=== PATIENT | female | born 1935 | race Caucasian/White ===

== ENCOUNTER → 2017-10-04 11:20 | Outpatient (CLI) | payer MEDICARE, OTHER, SELFPAY ==
--- NOTE | 2017-10-04 | DI.MG.S_ITS ---
BILATERAL DIGITAL SCREENING MAMMOGRAM 3D/2D WITH CAD: 10/04/2017 CLINICAL: Routine screening. Family history of breast cancer. Comparison is made to exams dated: 08/11/2016 mammogram, 07/08/2015 mammogram, and 07/01/2014 mammogram - [facility]. The tissue of both breasts is heterogeneously dense. This may lower the sensitivity of mammography. Current study was also evaluated with a Computer Aided Detection (CAD) system. No significant masses, calcifications, or other findings are seen in either breast. There has been no significant interval change. IMPRESSION: NEGATIVE There is no mammographic evidence of malignancy. A 1 year screening mammogram is recommended. This exam was interpreted at Station ID: [id number]. NOTE: For mammograms, a report in lay terms will be sent to the patient. Approximately 15% of breast malignancies will not be visualized mammographically. In the management of a palpable breast mass, a negative mammogram must not discourage biopsy of a clinically suspicious lesion. Electronically Signed By: Neetu alonso/kristal:10/04/2017 12:57:15 letter sent: Normal Exam ACR BI-RADS Category 1: Negative [id number]
== END ==
PROVIDERS: Family Provider Internal Medicine; PCP Internal Medicine; Visit Provider Internal Medicine
DX: Z12.31 Encounter for screening mammogram for malignant neoplasm of breast (principal); Z80.3 Family history of malignant neoplasm of breast
CPT/HCPCS: 77063; 77067

== ENCOUNTER → 2017-11-01 09:31 | Outpatient (CLI) | payer MEDICARE, OTHER, SELFPAY | PROVIDERS: Family Provider Internal Medicine; PCP Internal Medicine; Visit Provider Internal Medicine | DX: M85.88 Other specified disorders of bone density and structure, other site (principal); Z78.0 Asymptomatic menopausal state; Z82.62 Family history of osteoporosis; Z87.891 Personal history of nicotine dependence | CPT/HCPCS: 77080 ==

== ENCOUNTER → 2018-03-19 15:25 | Outpatient (CLI) | payer MEDICARE, OTHER, SELFPAY ==
--- NOTE | 2018-03-19 | DI.MRI.S_ITS ---
PROCEDURE: MR STROKE Pre- and post-contrast brain MRI, non-contrast brain MR angiogram, pre- and postcontrast neck MR angiogram INDICATIONS: Dizziness TECHNIQUE: Brain: Noncontrast axial T1 spin echo, axial T2 fast spin echo, sagittal and axial FLAIR, coronal T2 fast spin echo, axial gradient echo, axial diffusion and ADC through the brain. After the administration of contrast, axial 3D VIBE of the cranial vasculature and brain. Brain MRA: Non-contrast 3-D time of flight MR angiogram, with multiple bnrxrzf-jlpxikchy-krzhwcbuog (MIP) reformats performed. Neck MRA: Axial and sagittal TruFISP through the neck. Coronal dynamic MR angiogram during administration of contrast in the arterial and venous phases, with 3-dimenstional tcydmhn-fzakzqxgz-ffdgwwscfk (MIP) reformats constructed from subtraction images. COMPARISON: [facility], MR, STROKE PROTOCOL A, 03/28/2010, 9:43. [facility], CT, HEAD WITHOUT CONTRAST, 03/27/2010, 14:35. FINDINGS: Image quality: Excellent. BRAIN: CSF spaces: Ventricles are normal in size and shape. Basal cisterns are patent. No extra-axial fluid collections. Brain: No intracranial bleeds or mass effects. There is moderate cerebral volume loss. Moderate periventricular white matter chronic small vessel ischemic changes are present. Diffusion weighted images show no acute ischemic insults. Brainstem appears normal. Normal intravascular flow voids are present. No abnormal intracranial enhancement. Skull and face: Calvarial marrow signal is normal. Orbits appear normal. Sinuses: Sinuses and mastoids are clear. BRAIN MR ANGIOGRAM: Anterior circulation: Intracranial internal carotid arteries are normal in size and enhancement. The flow within the paired anterior cerebral arteries is normal and symmetric. The flow within the middle cerebral arteries is normal and symmetric. The anterior communicating artery is seen. No stenoses, occlusions, or aneurysms. Posterior circulation: The visualized portions of the vertebral arteries demonstrate normal caliber, and join to form a normal appearing basilar artery. The flow within the posterior cerebral arteries is normal and symmetric. No stenoses, occlusions, or aneurysms. NECK MR ANGIOGRAM: Carotids: Great vessels demonstrate a conventional anatomy as they arise from the aortic arch. The origins of the common carotid arteries appear patent. The calibers and courses of both common carotid arteries are normal. The bifurcation regions appear normal bilaterally. The internal carotid arteries demonstrate normal course and caliber. Posterior circulation: The origins of the vertebral arteries appear patent. More superior portions of both vertebral arteries demonstrate normal course and caliber, and join to form a normal appearing basilar artery. Miscellaneous: Subclavian arteries appear patent. Pre-contrast images through the neck show no soft tissue abnormalities. IMPRESSION: BRAIN MRI: 1. No acute intracranial abnormalities. 2. Moderate cerebral volume loss and chronic microvascular ischemic changes. BRAIN MR ANGIOGRAM: 1. No high-grade stenosis or occlusion in anterior circulations. 2. No high-grade stenosis or occlusion in posterior circulations. NECK MR ANGIOGRAM: 1. Normal carotid arteries bilaterally. 2. Normal vertebral arteries bilaterally. Dictated by: Geo Jensen M.D. on 03/20/2018 at 11:18 Approved by: Geo Jensen M.D. on 03/20/2018 at 11:29
[2018-03-19 15:54] LABS: BUN Creatinine Ratio 25.7 (6-22); Blood Urea Nitrogen 18 mg/dL (7-17); Estimated Glomerular Filt Rate > 60.0 mL/min (>60)
== END ==
PROVIDERS: PCP Internal Medicine; Visit Provider Internal Medicine
DX: I67.89 Other cerebrovascular disease (principal); R42 Dizziness and giddiness
CPT/HCPCS: 36415; 70553; 82565; 84520; A9579

== ENCOUNTER 2018-03-23 09:00 | Outpatient (RCR) | payer MEDICARE, OTHER, SELFPAY ==
--- NOTE | 2018-02-13 17:56 | PT.OIE ---
Current Diagnoses Muscle weakness (generalized) (02/13/18) Unsteadiness on feet (02/13/18) Other abnormalities of gait and mobility (02/13/18) Past Medical History (Last Updated 02/13/18 @ 17:48 by Neetu Nelson, PT) Depression (Acute) Osteopenia (Acute) Provider Visit Care Team Role Provider Type Giovani James MD Family Provider Physician Primary Care Provider Specialty: Internal Medicine Address: [address] [place] [address], [id number] Email: Jessica Lewis PA-C Attending Provider Advanced Feed Elevator Worker Specialty: Internal Medicine Address: [address] [place] [address], [id number] Email: Physical Therapy Initial Evaluation PT-OP-A Visit Information Start: 02/13/18 10:39 Freq: Status: Active Protocol: Document 02/13/18 10:40 LRN (Rec: 02/13/18 11:28 LRN [id number]) Out-Patient Physical Therapy Visit Information Visit Information Visit Type Initial Evaluation Visit Start Time 10:40 Visit Stop Time 11:28 Total Visit Minutes 48 Visit Number 1 Number of ASSESSMENT TECHNICIAN Visits 0 Evaluation Information Evaluation Date 02/13/18 PT-OP-B Current Condition Start: 02/13/18 10:39 Freq: Status: Active Protocol: Document 02/13/18 10:40 LRN (Rec: 02/13/18 11:28 LRN [id number]) Current Condition History of Current Condition Onset Date 2 yrs ago Current Complaints If turns fast or stands too quickly gets lightheaded. History of Current Condition Gradual onset of unsteadiness. Becomes unsteady when standing up or turning around quickly. Fell flat on face x 2 in 2016. Once after going up a step outside at home and took 2 steps and fell forward. Another time was standing up to fast and fell forward. Thinks she was light headed. She feels good walking straight forward in a familiar place and is steady. She states she is awful in crowds or if she has to deviate from her walking pathway, then gets light headed and fearful of falling. She has to hang onto her when walking in crowds. She walks her small dog outside 2x/day and feels that make her more stable when the dog is pulling forward. She walks 15-60 minutes (mile in afternoon with slight hill on level). She denies any health issues. States her blood pressure is good. See section of Personal Factors below. Future Testing and Treatments Planned None. Treatment Goals Patient/Caregiver Goals Unsteadiness at home when getting up from couch and turning to go to kitchen, feels unsteady and would like to move around without loss of balance and would like to learn to walk more steadily. Prior Functional Status Baseline Function- ADL's Independent Baseline Function- Mobility Independent Current Functional Impairments (Reported) Functional Limitations- ADL's Standing up quickly. Turning to go in an opposite direction. Having to suddenly avoid something while walking. Functional Limitations- Mobility/Gait Fearful of walking in open and unfamiliar spaces. Personal Factors Other Personal Factors That May Effect History of: Depression, Therapy/Recovery Dizziness with 2 falls 2 yrs ago, Osteopenia, R TKA - 8 yrs ago, facial surgery - broken cheekbone, nose; colon resection, L shoulder repair ( [facility]), appy, ovarian cyst and gall bladder removal, frozen R shoulder. PT-OP-C Subjective Start: 02/13/18 10:39 Freq: Status: Active Protocol: Document 02/13/18 10:40 LRN (Rec: 02/13/18 11:28 LRN [id number]) OP-PT Subjective Patient Comments Patient Comments No pain. Patient Questionnaires ABC- Activity Specific Balance Confidence Scale ABC Score 55.625 ABC Functional Impairment 40 to <60% Impaired (Score 41- 60) Foot & Ankle Ability Measure- ADL and Sports FAAM-ADL Score 66 FAAM-ADL Impairment 20 to 39% Impaired (Score 50- 66) Lower Extremity Functional Scale LEFS Score 53 LEFS Impairment 20 to 39% Impaired (Score 48- 62) PT-OP-D Balance Start: 02/13/18 10:39 Freq: Status: Active Protocol: Document 02/13/18 10:40 LRN (Rec: 02/13/18 11:28 LRN [id number]) OP-PT Balance Assessment Sitting Balance Static Sitting Balance Ability Normal Dynamic Sitting Balance Ability Normal Balance Tests Vigil Balance Test Vigil Balance Test Score 47 Vigil Impairment Rating 1 to 19% Impaired (Score 45-55 ) Functional Reach Functional Reach Test 12 Functional Reach Impairment Rating 0% Impaired (Score 10) Single Limb Standing Single Limb- Right 5 Single Limb- Left 2 Tandem Tandem Standing R foot behind: 30 sec's, L foot behind: 2 sec's Ramírez Fall Scale Copyright Permission Desiree JM, Desiree RM, Melodie SJ. Development of a scale to identify the fall- prone patient. Can J Aging 1989;8;366-7. Amanda Ramírez (2009). Preventing patient falls. (2nd ed). [place]: [employer]. PT-OP-E Functional Tests Start: 02/13/18 10:39 Freq: Status: Active Protocol: Document 02/13/18 10:40 LRN (Rec: 02/13/18 16:54 LRN [id number]) Functional Tests Dynamic Gait Index (DGI) Score 18 DGI Impairment Rating 20 to <40% Impaired (Score 15- 19) Timed Up and Go (TUG) Score 10 TUG Impairment Rating 0% Impaired (Score 10) PT-OP-G Mobility & Gait Start: 02/13/18 10:39 Freq: Status: Active Protocol: Document 02/13/18 10:40 LRN (Rec: 02/13/18 16:54 LRN [id number]) OP Gait Assessment Comments Gait Comments Pt ambulates with shortened step length on the left. PT-OP-Q Treatments Start: 02/13/18 10:39 Freq: Status: Active Protocol: Document 02/13/18 10:40 LRN (Rec: 02/13/18 16:54 LRN [id number]) Neuro Re-Education Treatment Balance Activities Tandem Stance Details EO: L & R Surface Level Reps/Duration 2 x Comments Pt able to stand with R foot behind, has poor balance with L foot behind. SLS Details EO: L & R Surface Level Reps/Duration 2-3 x Comments SLS R better than L Stepping around objects Details Objects 5' and 2.5' apart Surface Level Equipment 1/2 balls Reps/Duration 2 passes Comments Pt needed verbal cuing to keep from side stepping around the 1/2 balls. Stepping over hurdles Details Stepping over green ace Surface Level Equipment hurdles Reps/Duration 2 passes PT-OP-T Assessment and Plan Start: 02/13/18 10:39 Freq: Status: Active Protocol: Document 02/13/18 10:40 LRN (Rec: 02/13/18 11:28 LRN [id number]) Physical Therapy Assessment Rehab Potential Rehabilitation Potential Good Evaluation Complexity Number of Personal Factors/Comorbidities 3 or More Number of Body Systems Impaired 3 Clinical Presentation at Evaluation Stable Impairments Impairments Balance Gait Strength Other Impairments Possible vestibular component Other Concerns Age Related Concerns > 65 years old Fall history Hx of R TKA Barriers to Rehabilitation 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 Goals Four Impairment Increased dizziness with quick turning and sit to stand transfer. Short Term Goal (STG) The pt will be able to slow down her turning and sit to stand transfer movement to decrease her risk of falling. STG Duration 03/12/09 Residential Goal (LTG) Pt will have be able to report less episodes on dizziness onset and improved confidence with activities per improved ABC score of 40 or less. LTG Duration 04/10/18 Three Impairment DGI score of less than 19 indicating related to falls in older adults Residential Goal (LTG) Pt will improve DGI score to > 19 for decreased fall risk. LTG Duration 04/10/18 Two Impairment Decreased Single Leg Stance Balance Tire Service Technician Goal (LTG) Pt will feel more steady with gait on level and stairs with increased SLS ability. LTG Duration 03/26/18 One Impairment Pt lacks self care HEP Tire Service Technician Goal (LTG) Pt will be independent and safe on a self care HEP for balance and core/LE strengthening ex's. LTG Duration 04/10/18 Assessment Summary Assessment Pt presents with decreased dynamic balance with head movements during gait turning quickly and sometimes with sit to stand when done quickly. The pt will be check for orthostatic hypotension at the next visit. The patient may have a vestibular component since she tends to lose her balance with head turns vertical and horizontal. Her LE strength is good but she shows decreased core stability during muscle testing. When she had episodes of increased sway she showed poor use of hip/knee/ankle strategy for maintaining balance. The pt will benefit from skilled physical therapy for core and ankle strengthening, balance training with hip/knee/ankle strategies and training to decrease speed of transfers and turns. Physical Therapy Plan Frequency and Duration Frequency of Treatment 2x/Week Plan of Care Start Date 02/13/18 Plan of Care End Date 04/10/18 Therapeutic Interventions Therapeutic Interventions Aquatic Therapy Balance Training Gait Training Home Exercise Program Neuromuscular Re-education Patient/Caregiver Education Self-Care/Home Management Therapeutic Exercises Next Visit Focus/Plan Next Note Type Treatment Note Next Visit Plan Start core and ankle strengthening, balance training on unlevel and with EC, HEP of core and ankle strengthening. Progress towards unlevel surface balance training. Stair ambulation and step ups for exercise.
--- NOTE | 2018-02-13 17:56 | PT.OPPOC ---
Current Diagnoses Muscle weakness (generalized) (02/13/18) Unsteadiness on feet (02/13/18) Other abnormalities of gait and mobility (02/13/18) Provider Visit Care Team Role Provider Type Giovani James MD Family Provider Physician Primary Care Provider Specialty: Internal Medicine Address: [address] [place] [address], [id number] Email: Jessica Lewis PA-C Attending Provider Advanced Certified Retinal Angiographer Specialty: Internal Medicine Address: [address] [place] [address], [id number] Email: Plan Of Care PT-OP-T Assessment and Plan Start: 02/13/18 10:39 Freq: Status: Active Protocol: Document 02/13/18 10:40 LRN (Rec: 02/13/18 11:28 LRN [id number]) Physical Therapy Assessment Rehab Potential Rehabilitation Potential Good Evaluation Complexity Number of Personal Factors/Comorbidities 3 or More Number of Body Systems Impaired 3 Clinical Presentation at Evaluation Stable Impairments Impairments Balance Gait Strength Other Impairments Possible vestibular component Other Concerns Age Related Concerns > 65 years old Fall history Hx of R TKA Barriers to Rehabilitation 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 Goals Four Impairment Increased dizziness with quick turning and sit to stand transfer. Short Term Goal (STG) The pt will be able to slow down her turning and sit to stand transfer movement to decrease her risk of falling. STG Duration 03/12/09 Tax Director Goal (LTG) Pt will have be able to report less episodes on dizziness onset and improved confidence with activities per improved ABC score of 40 or less. LTG Duration 04/10/18 Three Impairment DGI score of less than 19 indicating related to falls in older adults Usp Goal (LTG) Pt will improve DGI score to > 19 for decreased fall risk. LTG Duration 04/10/18 Two Impairment Decreased Single Leg Stance Balance Usp Goal (LTG) Pt will feel more steady with gait on level and stairs with increased SLS ability. LTG Duration 03/26/18 One Impairment Pt lacks self care HEP Usp Goal (LTG) Pt will be independent and safe on a self care HEP for balance and core/LE strengthening ex's. LTG Duration 04/10/18 Assessment Summary Assessment Pt presents with decreased dynamic balance with head movements during gait turning quickly and sometimes with sit to stand when done quickly. The pt will be check for orthostatic hypotension at the next visit. The patient may have a vestibular component since she tends to lose her balance with head turns vertical and horizontal. Her LE strength is good but she shows decreased core stability during muscle testing. When she had episodes of increased sway she showed poor use of hip/knee/ankle strategy for maintaining balance. The pt will benefit from skilled physical therapy for core and ankle strengthening, balance training with hip/knee/ankle strategies and training to decrease speed of transfers and turns. Physical Therapy Plan Frequency and Duration Frequency of Treatment 2x/Week Plan of Care Start Date 02/13/18 Plan of Care End Date 04/10/18 Therapeutic Interventions Therapeutic Interventions Aquatic Therapy Balance Training Gait Training Home Exercise Program Neuromuscular Re-education Patient/Caregiver Education Self-Care/Home Management Therapeutic Exercises Next Visit Focus/Plan Next Note Type Treatment Note Next Visit Plan Start core and ankle strengthening, balance training on unlevel and with EC, HEP of core and ankle strengthening. Progress towards unlevel surface balance training. Stair ambulation and step ups for exercise. Plan of Care Dates Plan of Care Start Date 02/13/18 Plan of Care End Date 04/10/18 Please Sign and Return: I have reviewed this Plan of Care and certify that the skilled therapy services above are required to meet the patient?s needs. Physician Signature Date Printed Name and Credentials Clinical Instructor Signature Printed Name and Credentials
--- NOTE | 2018-03-01 18:12 | PT.OTN ---
Current Diagnoses Unsteadiness on feet (03/01/18) Other abnormalities of gait and mobility (03/01/18) Physical Therapy Treatment Note PT-OP-A Visit Information Start: 02/13/18 10:39 Freq: Status: Active Protocol: Document 03/01/18 15:15 HH (Rec: 03/01/18 18:09 HH [id number]) Out-Patient Physical Therapy Visit Information Visit Information Visit Type Treatment Note Visit Start Time 15:15 Visit Stop Time 16:00 Total Visit Minutes 45 Visit Number 2 Number of BATCH FREEZER OPERATOR Visits 0 PT-OP-B Current Condition Start: 02/13/18 10:39 Freq: Status: Active Protocol: Document 02/13/18 10:40 LRN (Rec: 02/13/18 11:28 LRN [id number]) Current Condition History of Current Condition Onset Date 2 yrs ago Current Complaints If turns fast or stands too quickly gets lightheaded. History of Current Condition Gradual onset of unsteadiness. Becomes unsteady when standing up or turning around quickly. Fell flat on face x 2 in 2016. Once after going up a step outside at home and took 2 steps and fell forward. Another time was standing up to fast and fell forward. Thinks she was light headed. She feels good walking straight forward in a familiar place and is steady. She states she is awful in crowds or if she has to deviate from her walking pathway, then gets light headed and fearful of falling. She has to hang onto her when walking in crowds. She walks her small dog outside 2x/day and feels that make her more stable when the dog is pulling forward. She walks 15-60 minutes (mile in afternoon with slight hill on level). She denies any health issues. States her blood pressure is good. See section of Personal Factors below. Future Testing and Treatments Planned None. Treatment Goals Patient/Caregiver Goals Unsteadiness at home when getting up from couch and turning to go to kitchen, feels unsteady and would like to move around without loss of balance and would like to learn to walk more steadily. Prior Functional Status Baseline Function- ADL's Independent Baseline Function- Mobility Independent Current Functional Impairments (Reported) Functional Limitations- ADL's Standing up quickly. Turning to go in an opposite direction. Having to suddenly avoid something while walking. Functional Limitations- Mobility/Gait Fearful of walking in open and unfamiliar spaces. Personal Factors Other Personal Factors That May Effect History of: Depression, Therapy/Recovery Dizziness with 2 falls 2 yrs ago, Osteopenia, R TKA - 8 yrs ago, facial surgery - broken cheekbone, nose; colon resection, L shoulder repair ( [facility]), appy, ovarian cyst and gall bladder removal, frozen R shoulder. PT-OP-C Subjective Start: 02/13/18 10:39 Freq: Status: Active Protocol: Document 03/01/18 15:15 HH (Rec: 03/01/18 18:09 HH [id number]) OP-PT Subjective Patient Comments Patient Comments Pt reports I almost fell today while turning to face my from my counter at home. I feel loss of balance everytime if i turn my head too much. I have to slow my turns down at this point to prevent that sensation. PT-OP-D Balance Start: 02/13/18 10:39 Freq: Status: Active Protocol: Document 02/13/18 10:40 LRN (Rec: 02/13/18 11:28 LRN [id number]) OP-PT Balance Assessment Sitting Balance Static Sitting Balance Ability Normal Dynamic Sitting Balance Ability Normal Balance Tests Vigil Balance Test Vigil Balance Test Score 47 Vigil Impairment Rating 1 to 19% Impaired (Score 45-55 ) Functional Reach Functional Reach Test 12 Functional Reach Impairment Rating 0% Impaired (Score 10) Single Limb Standing Single Limb- Right 5 Single Limb- Left 2 Tandem Tandem Standing R foot behind: 30 sec's, L foot behind: 2 sec's Ramírez Fall Scale Copyright Permission Desiree MILLAN, Desiree RM, Melodie SJ. Development of a scale to identify the fall- prone patient. Can J Aging 1989;8;366-7. Amanda Ramírez (2009). Preventing patient falls. (2nd ed). [place]: [place]. PT-OP-E Functional Tests Start: 02/13/18 10:39 Freq: Status: Active Protocol: Document 02/13/18 10:40 LRN (Rec: 02/13/18 16:54 LRN [id number]) Functional Tests Dynamic Gait Index (DGI) Score 18 DGI Impairment Rating 20 to <40% Impaired (Score 15- 19) Timed Up and Go (TUG) Score 10 TUG Impairment Rating 0% Impaired (Score 10) PT-OP-G Mobility & Gait Start: 02/13/18 10:39 Freq: Status: Active Protocol: Document 02/13/18 10:40 LRN (Rec: 02/13/18 16:54 LRN [id number]) OP Gait Assessment Comments Gait Comments Pt ambulates with shortened step length on the left. PT-OP-Q Treatments Start: 02/13/18 10:39 Freq: Status: Active Protocol: Document 03/01/18 15:15 HH (Rec: 03/01/18 18:09 [id number]) Gym Equipment Shuttle Balance balance board yellow Reps/Duration 30 secs x 5 Comments without UE support with CGA Therapeutic Exercises Standing Exercises anterior and posterior sway in standing Reps/Minutes 10 x 3 Comments sway as far as she can without LOB SLS Side bilateral Reps/Minutes 3 secs hold x 5 Neuro Re-Education Treatment Balance Activities static stance EO EC Reps/Duration 10 secs x 3 PT-OP-T Assessment and Plan Start: 02/13/18 10:39 Freq: Status: Active Protocol: Document 03/01/18 15:15 (Rec: 03/01/18 18:09 [email or web address]) Physical Therapy Assessment Assessment Summary Assessment Pt reports she almost fall today after a quick turn with the sensation of im losing balance when i turn. Pt presents possible vertibular impairments primarily during horizontal head turns. Pt was able to balance during static stance with EO, EC, but unable to maintain balance during head turns with or without eyes closed. Head turns with eyes fixation on a target in seated or standing position also cause loss of balance. Recommended pt to consult vestibular assessment and treatment from vestibular specialist due to possible BPPV or central vestibular disorder. BPPV assessment for next visit. Pt also does not seem to have OHTN. sitting and standing BP ranged from 155- 160/ 85-90. New HEP also given to pt including trunk sway with ankle strategy and SLS. Physical Therapy Plan Next Visit Focus/Plan Next Note Type Treatment Note Next Visit Plan perform bppv assessment cont to practice ankle and hip strategy single leg balance eo/EC balance training
--- NOTE | 2018-03-06 13:08 | PT.OTN ---
Current Diagnoses Unsteadiness on feet (03/06/18) Other abnormalities of gait and mobility (03/06/18) Physical Therapy Treatment Note PT-OP-A Visit Information Start: 02/13/18 10:39 Freq: Status: Active Protocol: Document 03/06/18 12:00 HH (Rec: 03/06/18 13:07 HH [email or web address]) Out-Patient Physical Therapy Visit Information Visit Information Visit Type Treatment Note Visit Start Time 12:00 Visit Stop Time 12:45 Total Visit Minutes 45 Visit Number 3 Number of MANAGEMENT AND BUDGET ANALYST Visits 0 PT-OP-B Current Condition Start: 02/13/18 10:39 Freq: Status: Active Protocol: Document 02/13/18 10:40 LRN (Rec: 02/13/18 11:28 LRN [id number]) Current Condition History of Current Condition Onset Date 2 yrs ago Current Complaints If turns fast or stands too quickly gets lightheaded. History of Current Condition Gradual onset of unsteadiness. Becomes unsteady when standing up or turning around quickly. Fell flat on face x 2 in 2016. Once after going up a step outside at home and took 2 steps and fell forward. Another time was standing up to fast and fell forward. Thinks she was light headed. She feels good walking straight forward in a familiar place and is steady. She states she is awful in crowds or if she has to deviate from her walking pathway, then gets light headed and fearful of falling. She has to hang onto her when walking in crowds. She walks her small dog outside 2x/day and feels that make her more stable when the dog is pulling forward. She walks 15-60 minutes (mile in afternoon with slight hill on level). She denies any health issues. States her blood pressure is good. See section of Personal Factors below. Future Testing and Treatments Planned None. Treatment Goals Patient/Caregiver Goals Unsteadiness at home when getting up from couch and turning to go to kitchen, feels unsteady and would like to move around without loss of balance and would like to learn to walk more steadily. Prior Functional Status Baseline Function- ADL's Independent Baseline Function- Mobility Independent Current Functional Impairments (Reported) Functional Limitations- ADL's Standing up quickly. Turning to go in an opposite direction. Having to suddenly avoid something while walking. Functional Limitations- Mobility/Gait Fearful of walking in open and unfamiliar spaces. Personal Factors Other Personal Factors That May Effect History of: Depression, Therapy/Recovery Dizziness with 2 falls 2 yrs ago, Osteopenia, R TKA - 8 yrs ago, facial surgery - broken cheekbone, nose; colon resection, L shoulder repair ( [place]), appy, ovarian cyst and gall bladder removal, frozen R shoulder. PT-OP-C Subjective Start: 02/13/18 10:39 Freq: Status: Active Protocol: Document 03/06/18 12:00 HH (Rec: 03/06/18 13:07 HH [email or web address]) OP-PT Subjective Patient Comments Patient Comments Pt is compliant to HEP especially single leg balance at the counter. Pt reports she still feel dizzy from getting OOB and sit to stand movements but denies dizziness from rolling in bed. PT-OP-D Balance Start: 02/13/18 10:39 Freq: Status: Active Protocol: Document 02/13/18 10:40 LRN (Rec: 02/13/18 11:28 LRN [id number]) OP-PT Balance Assessment Sitting Balance Static Sitting Balance Ability Normal Dynamic Sitting Balance Ability Normal Balance Tests Vigil Balance Test Vigil Balance Test Score 47 Vigil Impairment Rating 1 to 19% Impaired (Score 45-55 ) Functional Reach Functional Reach Test 12 Functional Reach Impairment Rating 0% Impaired (Score 10) Single Limb Standing Single Limb- Right 5 Single Limb- Left 2 Tandem Tandem Standing R foot behind: 30 sec's, L foot behind: 2 sec's Ramírez Fall Scale Copyright Permission Desiree MILLAN, Desiree RM, Melodie SJ. Development of a scale to identify the fall- prone patient. Can J Aging 1989;8;366-7. Amanda Ramírez (2009). Preventing patient falls. (2nd ed). [place]: [place]. PT-OP-E Functional Tests Start: 02/13/18 10:39 Freq: Status: Active Protocol: Document 02/13/18 10:40 LRN (Rec: 02/13/18 16:54 LRN [id number]) Functional Tests Dynamic Gait Index (DGI) Score 18 DGI Impairment Rating 20 to <40% Impaired (Score 15- 19) Timed Up and Go (TUG) Score 10 TUG Impairment Rating 0% Impaired (Score 10) PT-OP-G Mobility & Gait Start: 02/13/18 10:39 Freq: Status: Active Protocol: Document 02/13/18 10:40 LRN (Rec: 02/13/18 16:54 LRN [id number]) OP Gait Assessment Comments Gait Comments Pt ambulates with shortened step length on the left. PT-OP-Q Treatments Start: 02/13/18 10:39 Freq: Status: Active Protocol: Document 03/06/18 12:00 HH (Rec: 03/06/18 13:07 HH [email or web address]) Therapeutic Exercises Sitting Exercises Recumbent bike Resistance 0 for 1st minute then level 5 for 3 mins Reps/Minutes 6 minutes total Standing Exercises sit to stand Standing Exercise Name sit to stand Resistance BW with UE support Reps/Minutes 5 reps x 4 anterior and posterior sway in standing Reps/Minutes 10 x 3 Comments sway as far as she can without LOB SLS Side bilateral Reps/Minutes 5 secs hold x 5 PT-OP-T Assessment and Plan Start: 02/13/18 10:39 Freq: Status: Active Protocol: Document 03/06/18 12:00 HH (Rec: 03/06/18 13:07 HH [email or web address]) Physical Therapy Assessment Impairments Impairments Balance Gait Strength Assessment Summary Assessment Assessment for possible OHTN and BPPV today. [place] -ve for L and R. However, pt presents symptoms of OHTN. Supine to sit : bp 151/100 HR 73 in supine ; BP 129/89 HR 76 in sitting. Sit to stand : BP 145/93 HR 78 in sitting, BP 127/86 HR79 in standing. Pt reports of dizziness for no more than 10 seconds after every transitional movement. Pt was instructed to start tx session with LE recumbent bike followed by sit to stand with UE support. Pt did not c/o dizziness afterwards during sit to stand. However, she did c/o slight but decreased dizziness with horizontal head turns. Pt also reports her dizziness symptoms started couple months ago when she noticed her baseline bp also went up from 120s/80s to 140s/ 90s. Educated pt to follow up with her pcp to address her possible OHTN and cont PT for overall LE strengthening and increase in cardiac fitness. Recommend pt to participate fitness class at [employer] in [facility] as well. Physical Therapy Plan Next Visit Focus/Plan Next Note Type Treatment Note Next Visit Plan warm up with leg press/ recumbent bike/ recumbent press sit to stand with UE support, balance board, SLB, slow head turn exercise with gaze stabilization
--- NOTE | 2018-03-09 12:57 | PT.OTN ---
Current Diagnoses Unsteadiness on feet (03/09/18) Other abnormalities of gait and mobility (03/09/18) Physical Therapy Treatment Note PT-OP-A Visit Information Start: 02/13/18 10:39 Freq: Status: Active Protocol: Document 03/09/18 10:43 LRN (Rec: 03/09/18 11:18 LRN [id number]) Out-Patient Physical Therapy Visit Information Visit Information Visit Type Treatment Note Visit Note Pt was 13' late for appt. Visit Start Time 10:43 Visit Stop Time 11:18 Total Visit Minutes 35 Visit Number 4/12 Number of ELECTRONIC SPECIALIST Visits 0 Evaluation Information Evaluation Date 02/13/18 PT-OP-B Current Condition Start: 02/13/18 10:39 Freq: Status: Active Protocol: Document 02/13/18 10:40 LRN (Rec: 02/13/18 11:28 LRN [id number]) Current Condition History of Current Condition Onset Date 2 yrs ago Current Complaints If turns fast or stands too quickly gets lightheaded. History of Current Condition Gradual onset of unsteadiness. Becomes unsteady when standing up or turning around quickly. Fell flat on face x 2 in 2016. Once after going up a step outside at home and took 2 steps and fell forward. Another time was standing up to fast and fell forward. Thinks she was light headed. She feels good walking straight forward in a familiar place and is steady. She states she is awful in crowds or if she has to deviate from her walking pathway, then gets light headed and fearful of falling. She has to hang onto her when walking in crowds. She walks her small dog outside 2x/day and feels that make her more stable when the dog is pulling forward. She walks 15-60 minutes (mile in afternoon with slight hill on level). She denies any health issues. States her blood pressure is good. See section of Personal Factors below. Future Testing and Treatments Planned None. Treatment Goals Patient/Caregiver Goals Unsteadiness at home when getting up from couch and turning to go to kitchen, feels unsteady and would like to move around without loss of balance and would like to learn to walk more steadily. Prior Functional Status Baseline Function- ADL's Independent Baseline Function- Mobility Independent Current Functional Impairments (Reported) Functional Limitations- ADL's Standing up quickly. Turning to go in an opposite direction. Having to suddenly avoid something while walking. Functional Limitations- Mobility/Gait Fearful of walking in open and unfamiliar spaces. Personal Factors Other Personal Factors That May Effect History of: Depression, Therapy/Recovery Dizziness with 2 falls 2 yrs ago, Osteopenia, R TKA - 8 yrs ago, facial surgery - broken cheekbone, nose; colon resection, L shoulder repair ( [place]), appy, ovarian cyst and gall bladder removal, frozen R shoulder. PT-OP-C Subjective Start: 02/13/18 10:39 Freq: Status: Active Protocol: Document 03/09/18 10:43 LRN (Rec: 03/09/18 11:18 LRN [id number]) OP-PT Subjective Patient Comments Patient Comments Appt to Dr. Rashaad MD for blood pressure is 03/13/18. Walked 2 miles yesterday. PT-OP-D Balance Start: 02/13/18 10:39 Freq: Status: Active Protocol: Document 02/13/18 10:40 LRN (Rec: 02/13/18 11:28 LRN [id number]) OP-PT Balance Assessment Sitting Balance Static Sitting Balance Ability Normal Dynamic Sitting Balance Ability Normal Balance Tests Vigil Balance Test Vigil Balance Test Score 47 Vigil Impairment Rating 1 to 19% Impaired (Score 45-55 ) Functional Reach Functional Reach Test 12 Functional Reach Impairment Rating 0% Impaired (Score 10) Single Limb Standing Single Limb- Right 5 Single Limb- Left 2 Tandem Tandem Standing R foot behind: 30 sec's, L foot behind: 2 sec's Ramírez Fall Scale Copyright Permission Desiree JM, Desiree RM, Melodie SJ. Development of a scale to identify the fall- prone patient. Can J Aging 1989;8;366-7. Amanda Ramírez (2009). Preventing patient falls. (2nd ed). [place]: [place]. PT-OP-E Functional Tests Start: 02/13/18 10:39 Freq: Status: Active Protocol: Document 02/13/18 10:40 LRN (Rec: 02/13/18 16:54 LRN [id number]) Functional Tests Dynamic Gait Index (DGI) Score 18 DGI Impairment Rating 20 to <40% Impaired (Score 15- 19) Timed Up and Go (TUG) Score 10 TUG Impairment Rating 0% Impaired (Score 10) PT-OP-G Mobility & Gait Start: 02/13/18 10:39 Freq: Status: Active Protocol: Document 02/13/18 10:40 LRN (Rec: 02/13/18 16:54 LRN [id number]) OP Gait Assessment Comments Gait Comments Pt ambulates with shortened step length on the left. PT-OP-Q Treatments Start: 02/13/18 10:39 Freq: Status: Active Protocol: Document 03/09/18 10:43 LRN (Rec: 03/09/18 11:18 LRN [id number]) Cardio Equipment Recumbent Elliptical (Biodex) Duration (Minutes) 8 Resistance 3 Seat Position 8 Recumbent Bicycle Duration (Minutes) 2 Resistance 5 Seat Position 5 Therapeutic Exercises Standing Exercises Ankle DF/PF Standing Exercise Name DF/PF foot forward and ER'd. Equipment Used parallel bars Comments Ex with balance training, hands over railing, SBA anterior and posterior sway in standing Resistance Manual Reps/Minutes 10 x 3 Comments sway as far as she can without LOB SLS Standing Exercise Name SLS EO, EC Side bilateral Equipment Used Parallel bars Comments SBA PT-OP-T Assessment and Plan Start: 02/13/18 10:39 Freq: Status: Active Protocol: Document 03/09/18 10:43 LRN (Rec: 03/09/18 12:56 LRN [id number]) Physical Therapy Assessment Goals Four Impairment Increased dizziness with quick turning and sit to stand transfer. Short Term Goal (STG) The pt will be able to slow down her turning and sit to stand transfer movement to decrease her risk of falling. STG Duration 03/12/09 Beam Dyer Recessed Vat Goal (LTG) Pt will have be able to report less episodes on dizziness onset and improved confidence with activities per improved ABC score of 40 or less. LTG Duration 04/10/18 Three Impairment DGI score of less than 19 indicating related to falls in older adults Beam Dyer Recessed Vat Goal (LTG) Pt will improve DGI score to > 19 for decreased fall risk. LTG Duration 04/10/18 Two Impairment Decreased Single Leg Stance Balance Beam Dyer Recessed Vat Goal (LTG) Pt will feel more steady with gait on level and stairs with increased SLS ability. LTG Duration 03/26/18 One Impairment Pt lacks self care HEP Residential Goal (LTG) Pt will be independent and safe on a self care HEP for balance and core/LE strengthening ex's. LTG Duration 04/10/18 Assessment Summary Assessment Pt scheduled to Dr. Neil for blood pressure in ~ 1 week. Cont PT for balance training, overall LE strengthening and increase in cardiac fitness. Physical Therapy Plan Frequency and Duration Frequency of Treatment 2x/Week Plan of Care Start Date 02/13/18 Plan of Care End Date 04/10/18 Next Visit Focus/Plan Next Note Type Treatment Note Next Visit Plan Warm up with recumbent stepper and add leg press, balance board, SLB, slow head turn exercise with gaze stabilization. Assess sit to stand with UE support.
--- NOTE | 2018-03-14 16:47 | PT.OPPN ---
Current Diagnoses Unsteadiness on feet (03/14/18) Other abnormalities of gait and mobility (03/14/18) Physical Therapy Progress Note PT-OP-A Visit Information Start: 02/13/18 10:39 Freq: Status: Active Protocol: Document 03/14/18 14:30 HH (Rec: 03/14/18 16:47 HH [email or web address]) Out-Patient Physical Therapy Visit Information Visit Information Visit Type Progress Note Visit Start Time 14:30 Visit Stop Time 15:15 Total Visit Minutes 45 Visit Number 07/08 Number of CEMENT [employer] MAINTENANCE Visits 0 PT-OP-B Current Condition Start: 02/13/18 10:39 Freq: Status: Active Protocol: Document 02/13/18 10:40 LRN (Rec: 02/13/18 11:28 LRN [id number]) Current Condition History of Current Condition Onset Date 2 yrs ago Current Complaints If turns fast or stands too quickly gets lightheaded. History of Current Condition Gradual onset of unsteadiness. Becomes unsteady when standing up or turning around quickly. Fell flat on face x 2 in 2016. Once after going up a step outside at home and took 2 steps and fell forward. Another time was standing up to fast and fell forward. Thinks she was light headed. She feels good walking straight forward in a familiar place and is steady. She states she is awful in crowds or if she has to deviate from her walking pathway, then gets light headed and fearful of falling. She has to hang onto her when walking in crowds. She walks her small dog outside 2x/day and feels that make her more stable when the dog is pulling forward. She walks 15-60 minutes (mile in afternoon with slight hill on level). She denies any health issues. States her blood pressure is good. See section of Personal Factors below. Future Testing and Treatments Planned None. Treatment Goals Patient/Caregiver Goals Unsteadiness at home when getting up from couch and turning to go to kitchen, feels unsteady and would like to move around without loss of balance and would like to learn to walk more steadily. Prior Functional Status Baseline Function- ADL's Independent Baseline Function- Mobility Independent Current Functional Impairments (Reported) Functional Limitations- ADL's Standing up quickly. Turning to go in an opposite direction. Having to suddenly avoid something while walking. Functional Limitations- Mobility/Gait Fearful of walking in open and unfamiliar spaces. Personal Factors Other Personal Factors That May Effect History of: Depression, Therapy/Recovery Dizziness with 2 falls 2 yrs ago, Osteopenia, R TKA - 8 yrs ago, facial surgery - broken cheekbone, nose; colon resection, L shoulder repair ( [place]), appy, ovarian cyst and gall bladder removal, frozen R shoulder. PT-OP-C Subjective Start: 02/13/18 10:39 Freq: Status: Active Protocol: Document 03/14/18 14:30 HH (Rec: 03/14/18 16:47 HH [email or web address]) OP-PT Subjective Patient Comments Patient Comments Appt to Dr. Rashaad MD for BP 330pm this afternoon. Pt reports she started going to [employer] for strength and balance class. She states she is very cautious about her turning and positional changes . PT-OP-D Balance Start: 02/13/18 10:39 Freq: Status: Active Protocol: Document 02/13/18 10:40 LRN (Rec: 02/13/18 11:28 LRN [id number]) OP-PT Balance Assessment Sitting Balance Static Sitting Balance Ability Normal Dynamic Sitting Balance Ability Normal Balance Tests Ivgil Balance Test Vigil Balance Test Score 47 Vigil Impairment Rating 1 to 19% Impaired (Score 45-55 ) Functional Reach Functional Reach Test 12 Functional Reach Impairment Rating 0% Impaired (Score 10) Single Limb Standing Single Limb- Right 5 Single Limb- Left 2 Tandem Tandem Standing R foot behind: 30 sec's, L foot behind: 2 sec's Ramírez Fall Scale Copyright Permission Desiree MILLAN, Desiree RM, Melodie SJ. Development of a scale to identify the fall- prone patient. Can J Aging 1989;8;366-7. Amanda Ramírez (2009). Preventing patient falls. (2nd ed). [place]: [place]. PT-OP-E Functional Tests Start: 02/13/18 10:39 Freq: Status: Active Protocol: Document 02/13/18 10:40 LRN (Rec: 02/13/18 16:54 LRN [id number]) Functional Tests Dynamic Gait Index (DGI) Score 18 DGI Impairment Rating 20 to <40% Impaired (Score 15- 19) Timed Up and Go (TUG) Score 10 TUG Impairment Rating 0% Impaired (Score 10) PT-OP-G Mobility & Gait Start: 02/13/18 10:39 Freq: Status: Active Protocol: Document 02/13/18 10:40 LRN (Rec: 02/13/18 16:54 LRN [id number]) OP Gait Assessment Comments Gait Comments Pt ambulates with shortened step length on the left. PT-OP-T Assessment and Plan Start: 02/13/18 10:39 Freq: Status: Active Protocol: Document 03/14/18 14:30 HH (Rec: 03/14/18 16:47 HH [email or web address]) Physical Therapy Assessment Goals 5 Impairment BP control [employer] Developer Goal (LTG) Pt will be able to maintain her BP level +/- 10 with positional changes LTG Duration 8 weeks Four Short Term Goal (STG) The pt will be able to slow down her turning and sit to stand transfer movement to decrease her risk of falling. STG Duration 03/12/09 Longterm Goal (LTG) Pt will have be able to report less episodes on dizziness onset and improved confidence with activities per improved ABC score of 40 or less. LTG Duration 04/10/[address] Sql Developer Goal (LTG) Pt will improve DGI score to > 19 for decreased fall risk. LTG Duration 04/10/18 Two Impairment Decreased Single Leg Stance Balance Longterm Goal (LTG) Pt will feel more steady with gait on level and stairs with increased SLS ability. LTG Duration 03/26/18 Progress Towards Goals Progress Towards Goals Slow Progress due to Medical Issues Slow Progress - Other Progress Comments Pt presents improved SLS to 8 seconds bilaterally and she is more aware of her overall speed for positional changes and turns Assessment Summary Assessment Pt cont to show possible OHTN upon assessment today. Pt's BP dropped from 181/115 to 149/ 96 from supine to stand. However, pt's bp was able to maintain 150s from supine to stand after 30 mins of therex (primarily focus on LE strengthening.) Pt will follow up with Dr. Neil today for her possible OHTN. Physical Therapy Plan Next Visit Focus/Plan Next Visit Plan Warm up with recumbent stepper and add leg press, balance board, SLB, slow head turn exercise with gaze stabilization. Assess sit to stand with UE support.
--- NOTE | 2018-03-14 16:50 | PT.OTN ---
Current Diagnoses Unsteadiness on feet (03/21/18) Other abnormalities of gait and mobility (03/21/18) Physical Therapy Treatment Note PT-OP-A Visit Information Start: 02/13/18 10:39 Freq: Status: Active Protocol: Document 03/14/18 14:30 HH (Rec: 03/14/18 16:47 HH [email or web address]) Out-Patient Physical Therapy Visit Information Visit Information Visit Type Progress Note Visit Start Time 14:30 Visit Stop Time 15:15 Total Visit Minutes 45 Visit Number 07/08 Number of SHEET TAKER Visits 0 PT-OP-B Current Condition Start: 02/13/18 10:39 Freq: Status: Active Protocol: Document 02/13/18 10:40 LRN (Rec: 02/13/18 11:28 LRN [id number]) Current Condition History of Current Condition Onset Date 2 yrs ago Current Complaints If turns fast or stands too quickly gets lightheaded. History of Current Condition Gradual onset of unsteadiness. Becomes unsteady when standing up or turning around quickly. Fell flat on face x 2 in 2016. Once after going up a step outside at home and took 2 steps and fell forward. Another time was standing up to fast and fell forward. Thinks she was light headed. She feels good walking straight forward in a familiar place and is steady. She states she is awful in crowds or if she has to deviate from her walking pathway, then gets light headed and fearful of falling. She has to hang onto her when walking in crowds. She walks her small dog outside 2x/day and feels that make her more stable when the dog is pulling forward. She walks 15-60 minutes (mile in afternoon with slight hill on level). She denies any health issues. States her blood pressure is good. See section of Personal Factors below. Future Testing and Treatments Planned None. Treatment Goals Patient/Caregiver Goals Unsteadiness at home when getting up from couch and turning to go to kitchen, feels unsteady and would like to move around without loss of balance and would like to learn to walk more steadily. Prior Functional Status Baseline Function- ADL's Independent Baseline Function- Mobility Independent Current Functional Impairments (Reported) Functional Limitations- ADL's Standing up quickly. Turning to go in an opposite direction. Having to suddenly avoid something while walking. Functional Limitations- Mobility/Gait Fearful of walking in open and unfamiliar spaces. Personal Factors Other Personal Factors That May Effect History of: Depression, Therapy/Recovery Dizziness with 2 falls 2 yrs ago, Osteopenia, R TKA - 8 yrs ago, facial surgery - broken cheekbone, nose; colon resection, L shoulder repair ( [place]), appy, ovarian cyst and gall bladder removal, frozen R shoulder. PT-OP-C Subjective Start: 02/13/18 10:39 Freq: Status: Active Protocol: Document 03/14/18 14:30 HH (Rec: 03/14/18 16:47 HH [email or web address]) OP-PT Subjective Patient Comments Patient Comments Appt to Dr. Rashaad MD for BP 330pm this afternoon. Pt reports she started going to [facility] for strength and balance class. She states she is very cautious about her turning and positional changes . PT-OP-D Balance Start: 02/13/18 10:39 Freq: Status: Active Protocol: Document 02/13/18 10:40 LRN (Rec: 02/13/18 11:28 LRN [id number]) OP-PT Balance Assessment Sitting Balance Static Sitting Balance Ability Normal Dynamic Sitting Balance Ability Normal Balance Tests Vigil Balance Test Vigil Balance Test Score 47 Vigil Impairment Rating 1 to 19% Impaired (Score 45-55 ) Functional Reach Functional Reach Test 12 Functional Reach Impairment Rating 0% Impaired (Score 10) Single Limb Standing Single Limb- Right 5 Single Limb- Left 2 Tandem Tandem Standing R foot behind: 30 sec's, L foot behind: 2 sec's Ramírez Fall Scale Copyright Permission Desiree MILLAN, Desiree RM, Melodie SJ. Development of a scale to identify the fall- prone patient. Can J Aging 1989;8;366-7. Amanda Ramírez (2009). Preventing patient falls. (2nd ed). [place]: [place]. PT-OP-E Functional Tests Start: 02/13/18 10:39 Freq: Status: Active Protocol: Document 02/13/18 10:40 LRN (Rec: 02/13/18 16:54 LRN [id number]) Functional Tests Dynamic Gait Index (DGI) Score 18 DGI Impairment Rating 20 to <40% Impaired (Score 15- 19) Timed Up and Go (TUG) Score 10 TUG Impairment Rating 0% Impaired (Score 10) PT-OP-G Mobility & Gait Start: 02/13/18 10:39 Freq: Status: Active Protocol: Document 02/13/18 10:40 LRN (Rec: 02/13/18 16:54 LRN [id number]) OP Gait Assessment Comments Gait Comments Pt ambulates with shortened step length on the left. PT-OP-Q Treatments Start: 02/13/18 10:39 Freq: Status: Active Protocol: Document 03/14/18 14:30 HH (Rec: 03/14/18 16:47 HH [email or web address]) Cardio Equipment Recumbent Stepper (Sci-Fit) Duration (Minutes) 10 Resistance 3 Other RPE 5/10 Therapeutic Exercises Standing Exercises sit to stand Standing Exercise Name sit to stand Resistance BW with UE support Reps/Minutes 5 reps x 4 SLS Standing Exercise Name SLS EO, EC Side bilateral Equipment Used with mirror in front Comments SBA Other Exercises leg press Equipment Used 75 lbs 3 stripes Reps/Minutes 10 x 3 PT-OP-T Assessment and Plan Start: 02/13/18 10:39 Freq: Status: Active Protocol: Document 03/14/18 14:30 HH (Rec: 03/14/18 16:47 HH [email or web address]) Physical Therapy Assessment Goals 5 Impairment BP control Glass Grinder Goal (LTG) Pt will be able to maintain her BP level +/- 10 with positional changes LTG Duration 8 weeks Four Short Term Goal (STG) The pt will be able to slow down her turning and sit to stand transfer movement to decrease her risk of falling. STG Duration 03/12/09 [facility] Goal (LTG) Pt will have be able to report less episodes on dizziness onset and improved confidence with activities per improved ABC score of 40 or less. LTG Duration 04/10/18 Three [facility] Goal (LTG) Pt will improve DGI score to > 19 for decreased fall risk. LTG Duration 04/10/18 Two Impairment Decreased Single Leg Stance Balance [facility] Goal (LTG) Pt will feel more steady with gait on level and stairs with increased SLS ability. LTG Duration 03/26/18 Progress Towards Goals Progress Towards Goals Slow Progress due to Medical Issues Slow Progress - Other Progress Comments Pt presents improved SLS to 8 seconds bilaterally and she is more aware of her overall speed for positional changes and turns Assessment Summary Assessment Pt cont to show possible OHTN upon assessment today. Pt's BP dropped from 181/115 to 149/ 96 from supine to stand. However, pt's bp was able to maintain 150s from supine to stand after 30 mins of therex (primarily focus on LE strengthening.) Pt will follow up with Dr. Neil today for her possible OHTN. Physical Therapy Plan Next Visit Focus/Plan Next Visit Plan Warm up with recumbent stepper and add leg press, balance board, SLB, slow head turn exercise with gaze stabilization. Assess sit to stand with UE support.
--- NOTE | 2018-03-21 14:34 | PT.OTN ---
Current Diagnoses Unsteadiness on feet (03/21/18) Other abnormalities of gait and mobility (03/21/18) Physical Therapy Treatment Note PT-OP-A Visit Information Start: 02/13/18 10:39 Freq: Status: Active Protocol: Document 03/21/18 13:45 HH (Rec: 03/21/18 14:34 HH [email or web address]) Out-Patient Physical Therapy Visit Information Visit Information Visit Type Treatment Note Visit Start Time 13:45 Visit Stop Time 14:20 Total Visit Minutes 35 Visit Number 08/08 Number of TRANSMISSION SYSTEM OPERATOR Visits 0 PT-OP-B Current Condition Start: 02/13/18 10:39 Freq: Status: Active Protocol: Document 02/13/18 10:40 LRN (Rec: 02/13/18 11:28 LRN [id number]) Current Condition History of Current Condition Onset Date 2 yrs ago Current Complaints If turns fast or stands too quickly gets lightheaded. History of Current Condition Gradual onset of unsteadiness. Becomes unsteady when standing up or turning around quickly. Fell flat on face x 2 in 2016. Once after going up a step outside at home and took 2 steps and fell forward. Another time was standing up to fast and fell forward. Thinks she was light headed. She feels good walking straight forward in a familiar place and is steady. She states she is awful in crowds or if she has to deviate from her walking pathway, then gets light headed and fearful of falling. She has to hang onto her when walking in crowds. She walks her small dog outside 2x/day and feels that make her more stable when the dog is pulling forward. She walks 15-60 minutes (mile in afternoon with slight hill on level). She denies any health issues. States her blood pressure is good. See section of Personal Factors below. Future Testing and Treatments Planned None. Treatment Goals Patient/Caregiver Goals Unsteadiness at home when getting up from couch and turning to go to kitchen, feels unsteady and would like to move around without loss of balance and would like to learn to walk more steadily. Prior Functional Status Baseline Function- ADL's Independent Baseline Function- Mobility Independent Current Functional Impairments (Reported) Functional Limitations- ADL's Standing up quickly. Turning to go in an opposite direction. Having to suddenly avoid something while walking. Functional Limitations- Mobility/Gait Fearful of walking in open and unfamiliar spaces. Personal Factors Other Personal Factors That May Effect History of: Depression, Therapy/Recovery Dizziness with 2 falls 2 yrs ago, Osteopenia, R TKA - 8 yrs ago, facial surgery - broken cheekbone, nose; colon resection, L shoulder repair ( [place]), appy, ovarian cyst and gall bladder removal, frozen R shoulder. PT-OP-C Subjective Start: 02/13/18 10:39 Freq: Status: Active Protocol: Document 03/21/18 13:45 HH (Rec: 03/21/18 14:34 HH [email or web address]) OP-PT Subjective Patient Comments Patient Comments Pt reports her symptoms is around the same and feel more tired today. Pt requested to leave earlier today due to her fitness class at [facility] after this session at 230 pm. pt states My doctor did notice that theres fluctuations in BP at the office but he told me not to worry too much. And He had me to have a MRI screen to rule out cartoid artery blockage. Result will come back on monday. Patient Reported Progress Same PT-OP-D Balance Start: 02/13/18 10:39 Freq: Status: Active Protocol: Document 02/13/18 10:40 LRN (Rec: 02/13/18 11:28 LRN [id number]) OP-PT Balance Assessment Sitting Balance Static Sitting Balance Ability Normal Dynamic Sitting Balance Ability Normal Balance Tests Vigli Balance Test Vigil Balance Test Score 47 Vigil Impairment Rating 1 to 19% Impaired (Score 45-55 ) Functional Reach Functional Reach Test 12 Functional Reach Impairment Rating 0% Impaired (Score 10) Single Limb Standing Single Limb- Right 5 Single Limb- Left 2 Tandem Tandem Standing R foot behind: 30 sec's, L foot behind: 2 sec's Ramírez Fall Scale Copyright Permission Desiree MILLAN, Desiree RM, Melodie SJ. Development of a scale to identify the fall- prone patient. Can J Aging 1989;8;366-7. Amanda Ramírez (2009). Preventing patient falls. (2nd ed). [place]: [place]. PT-OP-E Functional Tests Start: 02/13/18 10:39 Freq: Status: Active Protocol: Document 02/13/18 10:40 LRN (Rec: 02/13/18 16:54 LRN [id number]) Functional Tests Dynamic Gait Index (DGI) Score 18 DGI Impairment Rating 20 to <40% Impaired (Score 15- 19) Timed Up and Go (TUG) Score 10 TUG Impairment Rating 0% Impaired (Score 10) PT-OP-G Mobility & Gait Start: 02/13/18 10:39 Freq: Status: Active Protocol: Document 02/13/18 10:40 LRN (Rec: 02/13/18 16:54 LRN [id number]) OP Gait Assessment Comments Gait Comments Pt ambulates with shortened step length on the left. PT-OP-Q Treatments Start: 02/13/18 10:39 Freq: Status: Active Protocol: Document 03/21/18 13:45 HH (Rec: 03/21/18 14:34 HH [email or web address]) Cardio Equipment Recumbent Stepper (Sci-Fit) Duration (Minutes) 10 Resistance 3 Recumbent Bicycle Duration (Minutes) 8 Resistance 5 Seat Position 5 Therapeutic Exercises Standing Exercises calf raise Equipment Used on stair Reps/Minutes 12 x 2 sit to stand Standing Exercise Name sit to stand Resistance BW with UE support Reps/Minutes 8 reps x 3 Comments tempo 5 seconds down , 2 seoncds up PT-OP-T Assessment and Plan Start: 02/13/18 10:39 Freq: Status: Active Protocol: Document 03/21/18 13:45 HH (Rec: 03/21/18 14:34 HH [email or web address]) Physical Therapy Assessment Assessment Summary Assessment Pt reports increased fatigue today since she woke up. Pt's BP has been maintained at 130- 140s/90s-100s before and after therex. Pt denies dizziness during session and she also presents increased awareness of her overall speed of movements. Physical Therapy Plan Next Visit Focus/Plan Next Note Type Treatment Note Next Visit Plan check pt's MRI status Reassess BP Warm up with recumbent stepper and add leg press, balance board, SLB, slow head turn exercise with gaze stabilization. Assess sit to stand with UE support.
--- NOTE | 2018-03-23 12:42 | PT.OTN ---
Current Diagnoses Unsteadiness on feet (03/23/18) Other abnormalities of gait and mobility (03/23/18) Physical Therapy Treatment Note PT-OP-A Visit Information Start: 02/13/18 10:39 Freq: Status: Active Protocol: Document 03/23/18 09:01 LRN (Rec: 03/23/18 09:48 LRN [id number]) Out-Patient Physical Therapy Visit Information Visit Information Visit Type Treatment Note Visit Start Time 09:01 Visit Stop Time 09:48 Total Visit Minutes 47 Visit Number 09/07 Number of OBSTETRICS TECH Visits 0 Evaluation Information Evaluation Date 02/13/18 PT-OP-B Current Condition Start: 02/13/18 10:39 Freq: Status: Active Protocol: Document 02/13/18 10:40 LRN (Rec: 02/13/18 11:28 LRN [id number]) Current Condition History of Current Condition Onset Date 2 yrs ago Current Complaints If turns fast or stands too quickly gets lightheaded. History of Current Condition Gradual onset of unsteadiness. Becomes unsteady when standing up or turning around quickly. Fell flat on face x 2 in 2016. Once after going up a step outside at home and took 2 steps and fell forward. Another time was standing up to fast and fell forward. Thinks she was light headed. She feels good walking straight forward in a familiar place and is steady. She states she is awful in crowds or if she has to deviate from her walking pathway, then gets light headed and fearful of falling. She has to hang onto her when walking in crowds. She walks her small dog outside 2x/day and feels that make her more stable when the dog is pulling forward. She walks 15-60 minutes (mile in afternoon with slight hill on level). She denies any health issues. States her blood pressure is good. See section of Personal Factors below. Future Testing and Treatments Planned None. Treatment Goals Patient/Caregiver Goals Unsteadiness at home when getting up from couch and turning to go to kitchen, feels unsteady and would like to move around without loss of balance and would like to learn to walk more steadily. Prior Functional Status Baseline Function- ADL's Independent Baseline Function- Mobility Independent Current Functional Impairments (Reported) Functional Limitations- ADL's Standing up quickly. Turning to go in an opposite direction. Having to suddenly avoid something while walking. Functional Limitations- Mobility/Gait Fearful of walking in open and unfamiliar spaces. Personal Factors Other Personal Factors That May Effect History of: Depression, Therapy/Recovery Dizziness with 2 falls 2 yrs ago, Osteopenia, R TKA - 8 yrs ago, facial surgery - broken cheekbone, nose; colon resection, L shoulder repair ( [place]), appy, ovarian cyst and gall bladder removal, frozen R shoulder. PT-OP-C Subjective Start: 02/13/18 10:39 Freq: Status: Active Protocol: Document 03/23/18 09:01 LRN (Rec: 03/23/18 09:48 LRN [id number]) OP-PT Subjective Patient Comments Patient Comments States her habits have changed and she is improving her way of turning around and has had less disorientation. She reports no dizziness with changes in position because she has learned to move more slowly. States she realizes she has to move more slowly. She has started the strength and balance class at the [facility]. MRI results will be known 03/26/18. PT-OP-D Balance Start: 02/13/18 10:39 Freq: Status: Active Protocol: Document 02/13/18 10:40 LRN (Rec: 02/13/18 11:28 LRN [id number]) OP-PT Balance Assessment Sitting Balance Static Sitting Balance Ability Normal Dynamic Sitting Balance Ability Normal Balance Tests Vigil Balance Test Vigil Balance Test Score 47 Vigil Impairment Rating 1 to 19% Impaired (Score 45-55 ) Functional Reach Functional Reach Test 12 Functional Reach Impairment Rating 0% Impaired (Score 10) Single Limb Standing Single Limb- Right 5 Single Limb- Left 2 Tandem Tandem Standing R foot behind: 30 sec's, L foot behind: 2 sec's Ramírez Fall Scale Copyright Permission Desiree MILLAN, Desiree RM, Melodie SJ. Development of a scale to identify the fall- prone patient. Can J Aging 1989;8;366-7. Amanda Ramírez (2009). Preventing patient falls. (2nd ed). [place]: [place]. PT-OP-E Functional Tests Start: 02/13/18 10:39 Freq: Status: Active Protocol: Document 02/13/18 10:40 LRN (Rec: 02/13/18 16:54 LRN [id number]) Functional Tests Dynamic Gait Index (DGI) Score 18 DGI Impairment Rating 20 to <40% Impaired (Score 15- 19) Timed Up and Go (TUG) Score 10 TUG Impairment Rating 0% Impaired (Score 10) PT-OP-G Mobility & Gait Start: 02/13/18 10:39 Freq: Status: Active Protocol: Document 02/13/18 10:40 LRN (Rec: 02/13/18 16:54 LRN [id number]) OP Gait Assessment Comments Gait Comments Pt ambulates with shortened step length on the left. PT-OP-Q Treatments Start: 02/13/18 10:39 Freq: Status: Active Protocol: Document 03/23/18 09:01 LRN (Rec: 03/23/18 09:48 LRN [id number]) Cardio Equipment Recumbent Elliptical (Biodex) Duration (Minutes) 10 Resistance 4 Seat Position 8 Therapeutic Exercises Standing Exercises calf raise Standing Exercise Name Feet neutral/EV, IV Reps/Minutes 10x each Ankle DF/PF Standing Exercise Name DF foot forward Reps/Minutes 30x Comments Ex with balance training, hands over railing, SBA sit to stand Standing Exercise Name sit to stand Resistance BW with UE support Reps/Minutes 10 reps x 3 Comments tempo 5 seconds down , 2 seoncds up Other Exercises leg press Side bilateral Equipment Used 75 lbs 3 stripes Reps/Minutes 10 x 4 Neuro Re-Education Treatment Balance Activities Sitting vestibular ex Details Eyes focused on finger, head turns vertical/horiz Standing vestibular ex Details Eyes forward, vertical head turns PT-OP-T Assessment and Plan Start: 02/13/18 10:39 Freq: Status: Active Protocol: Document 03/23/18 09:01 LRN (Rec: 03/23/18 09:48 LRN [id number]) Physical Therapy Assessment Goals 5 Impairment BP control [facility] Goal (LTG) Pt will be able to maintain her BP level +/- 10 with positional changes LTG Duration 8 weeks Four Short Term Goal (STG) The pt will be able to slow down her turning and sit to stand transfer movement to decrease her risk of falling. STG Duration 03/12/09 (03/23/18: Met) Payroll Accounting Specialist Goal (LTG) Pt will have be able to report less episodes on dizziness onset and improved confidence with activities per improved ABC score of 40 or less. LTG Duration 04/10/18 Three [facility] Goal (LTG) Pt will improve DGI score to > 19 for decreased fall risk. LTG Duration 04/10/18 Two Impairment Decreased Single Leg Stance Balance [facility] Goal (LTG) Pt will feel more steady with gait on level and stairs with increased SLS ability. LTG Duration 03/26/18 One Impairment Pt lacks self care HEP [facility] Goal (LTG) Pt will be independent and safe on a self care HEP for balance and core/LE strengthening ex's. LTG Duration 04/10/18 Progress Towards Goals Progress Towards Goals Progressing Toward Goals Slow Progress due to Medical Issues Progress Comments Goal 5: 03/23/18: Goal Met 1x. ST03/23/18 Goal Met Assessment Summary Assessment Pt's BP was maintained at 130/ 70-72 before and after supine to sit. Pt denied dizziness with positional changes during therapy and she presents with increased awareness needing to slow down with movements. Pt had mild onset of dizziness with eyes forw & horiz head turns. Physical Therapy Plan Frequency and Duration Frequency of Treatment 2x/Week Plan of Care Start Date 02/13/18 Plan of Care End Date 04/10/18 Next Visit Focus/Plan Next Note Type Treatment Note Next Visit Plan Check pt's MRI status. Warm up with recumbent stepper and progress SLS balance, and gaze stabilization.
--- NOTE | 2018-04-05 14:00 | PT.OPDS ---
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 History of Current Condition Gradual onset of unsteadiness. Becomes unsteady when standing up or turning around quickly. Fell flat on face x 2 in 2016. Once after going up a step outside at home and took 2 steps and fell forward. Another time was standing up to fast and fell forward. Thinks she was light headed. She feels good walking straight forward in a familiar place and is steady. She states she is awful in crowds or if she has to deviate from her walking pathway, then gets light headed and fearful of falling. She has to hang onto her when walking in crowds. She walks her small dog outside 2x/day and feels that make her more stable when the dog is pulling forward. She walks 15-60 minutes (mile in afternoon with slight hill on level). She denies any health issues. States her blood pressure is good. See section of Personal Factors below. Future Testing and Treatments Planned None. Treatment Goals Patient/Caregiver Goals Unsteadiness at home when getting up from couch and turning to go to kitchen, feels unsteady and would like to move around without loss of balance and would like to learn to walk more steadily. Prior Functional Status Baseline Function- ADL's Independent Baseline Function- Mobility Independent Current Functional Impairments (Reported) Functional Limitations- ADL's Standing up quickly. Turning to go in an opposite direction. Having to suddenly avoid something while walking. Functional Limitations- Mobility/Gait Fearful of walking in open and unfamiliar spaces. Personal Factors Other Personal Factors That May Effect History of: Depression, Therapy/Recovery Dizziness with 2 falls 2 yrs ago, Osteopenia, R TKA - 8 yrs ago, facial surgery - broken cheekbone, nose; colon resection, L shoulder repair ( [place]), appy, ovarian cyst and gall bladder removal, frozen R shoulder. PT-OP-C Subjective Start: 02/13/18 10:39 Freq: Status: Active Protocol: Document 04/05/18 13:56 HH (Rec: 04/05/18 14:00 HH [id number]) OP-PT Subjective Patient Comments Patient Reported Progress Improving PT-OP-D Balance Start: 02/13/18 10:39 Freq: Status: Active Protocol: Document 02/13/18 10:40 LRN (Rec: 02/13/18 11:28 LRN [id number]) OP-PT Balance Assessment Sitting Balance Static Sitting Balance Ability Normal Dynamic Sitting Balance Ability Normal Balance Tests Vigil Balance Test Vigil Balance Test Score 47 Vigil Impairment Rating 1 to 19% Impaired (Score 45-55 ) Functional Reach Functional Reach Test 12 Functional Reach Impairment Rating 0% Impaired (Score 10) Single Limb Standing Single Limb- Right 5 Single Limb- Left 2 Tandem Tandem Standing R foot behind: 30 sec's, L foot behind: 2 sec's Ramírez Fall Scale Copyright Permission Desiree MILLAN, Desiree RM, Melodie SJ. Development of a scale to identify the fall- prone patient. Can J Aging 1989;8;366-7. Amanda Ramírez (2009). Preventing patient falls. (2nd ed). [place]: [place]. PT-OP-E Functional Tests Start: 02/13/18 10:39 Freq: Status: Active Protocol: Document 02/13/18 10:40 LRN (Rec: 02/13/18 16:54 LRN [id number]) Functional Tests Dynamic Gait Index (DGI) Score 18 DGI Impairment Rating 20 to <40% Impaired (Score 15- 19) Timed Up and Go (TUG) Score 10 TUG Impairment Rating 0% Impaired (Score 10) PT-OP-G Mobility & Gait Start: 02/13/18 10:39 Freq: Status: Active Protocol: Document 02/13/18 10:40 LRN (Rec: 02/13/18 16:54 LRN [id number]) OP Gait Assessment Comments Gait Comments Pt ambulates with shortened step length on the left. PT-OP-T Assessment and Plan Start: 02/13/18 10:39 Freq: Status: Active Protocol: Document 04/05/18 13:56 HH (Rec: 04/05/18 14:00 HH [email or web address]) Physical Therapy Plan Discharge Physical Therapy Discharge Reasons Patient Request Discharge Comments Pt called in and requested D/C since she has improved and no longer need PT service
== END 2018-09-21 14:03 | disposition home or self-care (01) ==
LOC: PHYS 09:00
PROVIDERS: Family Provider Internal Medicine; PCP Internal Medicine; Visit Provider Physician Assistant
DX: R26.89 Other abnormalities of gait and mobility (principal); R26.81 Unsteadiness on feet
CPT/HCPCS: 97110; 97112; 97162; 97530

== ENCOUNTER → 2018-10-05 12:59 | Outpatient (CLI) | payer MEDICARE, OTHER, SELFPAY ==
--- NOTE | 2018-10-05 | DI.MG.S_ITS ---
BILATERAL DIGITAL SCREENING MAMMOGRAM 3D/2D WITH CAD: 10/05/2018 CLINICAL: Routine screening. Family history of breast cancer. Comparison is made to exams dated: 10/04/2017 mammogram, 08/11/2016 mammogram, and 07/08/2015 mammogram - [facility]. The tissue of both breasts is heterogeneously dense. This may lower the sensitivity of mammography. Current study was also evaluated with a Computer Aided Detection (CAD) system. There are benign calcifications in both breasts. No significant masses, calcifications, or other findings are seen in either breast. There has been no significant interval change. IMPRESSION: There is no mammographic evidence of malignancy. A 1 year screening mammogram is recommended. This exam was interpreted at Station ID: [id number]. NOTE: For mammograms, a report in lay terms will be sent to the patient. Approximately 15% of breast malignancies will not be visualized mammographically. In the management of a palpable breast mass, a negative mammogram must not discourage biopsy of a clinically suspicious lesion. Electronically Signed By: Chase ward/kristal:10/05/2018 14:18:33 letter sent: Normal Exam ACR BI-RADS Category 2: Benign Finding(s) [id number]
== END ==
PROVIDERS: PCP Internal Medicine; Visit Provider Internal Medicine
DX: Z12.31 Encounter for screening mammogram for malignant neoplasm of breast (principal); Z80.3 Family history of malignant neoplasm of breast
CPT/HCPCS: 77063; 77067

== ENCOUNTER 2018-11-05 06:27 | Day surgery (SDC) | payer MEDICARE, OTHER, SELFPAY ==
[2018-11-05] VITALS (9 sets, daily range): BP systolic 109–155; BP diastolic 60–71; PULSE 52–75; RESP 11–16; TEMP 36.2–36.8; O2SAT 95–98; BMI 28.6
--- NOTE | 2018-11-05 07:40 | PM.PREOP ---
Pre-operative Note Interval Note History & Physical reviewed/Exam performed by Physician: Yes Changes to H&P: No ASA Class (for procedural sedation): I
[2018-11-05] MEDS: SODIUM CHLORIDE 0.9% 1,000 ML 200 ML IV (07:47)
[2018-11-05] MEDS: fentaNYL 250 MCG/5 ML INJ IV (07:55)
[2018-11-05] MEDS: MIDAZOLAM 5 MG/5 ML VIAL IV (07:55)
[2018-11-05] MEDS: GLUCAGON,HUMAN RECOMBINANT 1 MG/ML VIAL IV (08:02)
--- NOTE | 2018-11-05 08:36 | PM.OP.ENDO ---
Operative Date/Time/Diagnoses Date of procedure: 11/05/18 Time of procedure: 08:36 Pre-op diagnosis: screening colonoscopy Post-op diagnosis: other (hemorrhoid) Procedure & Clinicians Study performed: Colonoscopy Same procedure as scheduled: Yes Indications: 83-year-old female with previously normal colonoscopy and rectal bleeding Surgeon: Kendrick Juarez Procedure Notes SCOAP/Timeout: Performed Procedure in detail: A digital rectal exam was performed and was notable for a posterior rectal hemorrhoid with internal and external component. Scope was advanced into the rectum and through the colon. The ileocecal valve was reached. The scope was then carefully withdrawn. The examination was notable for extensive diverticulosis throughout the colon right and left side. The scope was retroflexed within the rectum and identified grade 2 hemorrhoid was. With the scope was withdrawn. The anoscope was inserted and an examination was made the demonstrated a right posterior hemorrhoid with internal and external component. The tissue was grasped and repair band was placed around its base. Scope withdrawal time: 14 Sedation minutes: 31 Findings: diverticulosis and internal hemorrhoids Specimen(s): none sent Complications: none Impression: Right posterior hemorrhoid Post-procedure Recommendations: Colonscopy in 10 years Follow up: weeks (2) Disposition: same day surgery
--- NOTE | 2018-11-05 09:00 | SUR.PHASEI ---
PACU note: VSS, O2 sat WNL on room air prior to transfer to Phase 2. tolerating sips of water without nausea. Complains of 6/[address] Juarez aware. Will plan to medicate with oral pain medication.
[2018-11-05] MEDS: OXYCODONE IR 5 MG TABLET PO (09:24)
--- NOTE | 2018-11-05 10:38 | SUR.PHASEII ---
Assumed care of pt at 1025. pt in stable condition, vss. pt sitting up in bed and talking to at bedside. pt rates pain 5/10 at that time and reports tolerable at this time. iv dc'd and intact.
== END 2018-11-05 10:40 | disposition home or self-care (01) ==
PROVIDERS: PCP Internal Medicine; Visit Provider Surgery
PROC: 0DJD8ZZ Inspection of Lower Intestinal Tract, Via Natural or Artificial Opening Endoscopic (ICD-10-PCS; CPT 45378; principal; 2018-11-05 07:45)
DX: K62.5 Hemorrhage of anus and rectum (principal); K57.30 Diverticulosis of large intestine without perforation or abscess without bleeding; K64.1 Second degree hemorrhoids; Z12.11 Encounter for screening for malignant neoplasm of colon
CPT/HCPCS: 45378; 46221; 99152; 99153; J1610; J2250; J3010

== ENCOUNTER 2018-11-12 18:34 | Inpatient (IN) | payer MEDICARE, OTHER, SELFPAY ==
[2018-11-12 19:00] VITALS: BP 139/81; PULSE 118; RESP 22; TEMP 37.3; O2SAT 95; BMI 29.1
--- NOTE | 2018-11-12 19:48 | DI.RAD.S_ITS ---
PROCEDURE: XR CHEST 1V INDICATIONS: suspected sepsis TECHNIQUE: One view of the chest was acquired. COMPARISON: [facility], CHEST 2 VIEW, 05/25/2015, 16:03. [facility], , CHEST 2 VIEW, 07/31/2016, 13:24. FINDINGS: Surgical changes and devices: None. Lungs and pleura: Left basilar opacity most likely atelectasis. There are diaphragmatic eventrations bilaterally. No focal consolidation or pleural effusion. No pleural effusions or pneumothorax. Mediastinum: Mediastinal contours appear normal. Heart size is normal. Bones and chest wall: No suspicious bony lesions. Overlying soft tissues appear unremarkable. IMPRESSION: 1. Left basilar opacity is most likely atelectasis. Cannot rule out developing pneumonia. Dictated by: Geo Jensen M.D. on 11/12/2018 at 20:45 Approved by: Geo Jensen M.D. on 11/12/2018 at 20:49
[2018-11-12 19:53] LABS: Add Manual Diff / Slide Review NO; Basophils Absolute Auto 100 /uL (0-100); Basophils Percent Auto 0.8 % (0-2); Eosinophils Absolute Auto 0 /uL (0-450); Eosinophils Percent Auto 0.4 % (2-4); Hematocrit 41.3 % (36-46); Lymphocytes Absolute Auto 300 /uL (1100-4500); Lymphocytes Percent Auto 3.4 % (25-40); Mean Corpuscular HGB Conc 33.9 % (30-36); Mean Corpuscular Hemoglobin 30.2 PG (26-34); Monocytes Absolute Auto 500 /uL (0-900); Neutrophils Absolute Auto 7900 /uL (1500-7000); Neutrophils Percent Auto 89.4 % (50-75); Platelet Count 155 X10^3/uL (150-400); Red Blood Cell Count 4.65 X10^6/uL (4.0-5.2); Red Cell Distribution Width 12.8 % (11.6-14.8); White Blood Cell Count 8.9 X10^3/uL (4.5-11.0)
[2018-11-12 20:00] VITALS: BP 137/68; PULSE 74; RESP 15; O2SAT 97
[2018-11-12 20:04] LABS: Prothrombin Time 11.3 SECONDS (10.1-12.7)
[2018-11-12] MEDS: SODIUM CHLORIDE 0.9% 1,000 ML 1000 ML IV (20:04)
--- NOTE | 2018-11-12 20:06 | PC.NURSE ---
Pt arrived POV, procedure to band haemorrhoids on 11/05, arrived today per surgeons recommendation due to fever of 103. currently afebrile at 98.8 oral. placed on tnt line supervisor, IV placed. labs drawn including lactate and BC x 2. appears well. skin PWD, denies chills or SOB. Denies rectal bleeding. RT in for EKG and XR at bedside for portable. NS infusing wide open. at side. awaiting further orders
[2018-11-12 20:07] LABS: PTT Partial Thromboplastin Tim 30 SECONDS (26.4-36.2)
[2018-11-12 20:12] LABS: Alanine Aminotransferase 26 IU/L (9-52); Albumin 4.4 g/dL (3.5-5.0); Albumin Globulin Ratio 1.3 (1.0-2.8); Alkaline Phosphatase 103 U/L (38-126); Aspartate Aminotransferase 35 IU/L (14-36); BUN Creatinine Ratio 21.3 (6-22); Bilirubin Total 0.6 mg/dL (0.2-1.3); Blood Urea Nitrogen 17 mg/dL (7-17); Calcium 10.4 mg/dL (8.4-10.2); Carbon Dioxide 24 mmol/L (22-32); Chloride 100 mmol/L (98-107); Estimated Glomerular Filt Rate > 60.0 mL/min (>60); Globulin 3.3 g/dL (1.7-4.1); Glucose 118 mg/dL (80-110); HEMOLYSIS < 15 (0-50); Lactate (Lactic Acid) 1.1 mmol/L (0.7-2.1); Lipase 95 U/L (23-300); Sodium 136 mmol/L (137-145); Total Protein 7.7 g/dL (6.3-8.2)
[2018-11-12 20:25] LABS: Procalcitonin 0.91 ng/mL (<0.5)
[2018-11-12 21:00] VITALS: BP 137/64; PULSE 72; RESP 20; O2SAT 98
[2018-11-12] MEDS: LIDOCAINE 1% W/EPI 12 ML INJ (21:50)
[2018-11-12] MEDS: SILVER NITRATE STICK 2 EACH TOP (21:51)
[2018-11-12] MEDS: CEFTRIAXONE 2 GM/50 ML FROZ.PIGGY IV (22:11)
[2018-11-12 22:12] VITALS: BP 133/73; PULSE 86; RESP 16; O2SAT 100
--- NOTE | 2018-11-12 22:12 | PC.NURSE ---
Surgeon at bedside performing procedure with anascope. pt tolerating well. Rocephin infusing. will monitor
[2018-11-12 22:15] LABS: Bacteria Urine None Seen; RBC Urine None Seen (0-5/HPF); WBC Urine None Seen (0-5/HPF)
--- NOTE | 2018-11-12 22:16 | ED.FEVER ---
HPI - Fever General Chief Complaint: Fever Stated Complaint: FEVER 103 NAUSEA Time Seen by Provider: 11/12/18 19:49 Source: patient Mode of arrival: ambulatory Limitations: no limitations History of Present Illness HPI Narrative: Patient is sent to the emergency department by surgery after being found to have a fever, post hemorrhoid banding on November 05. Related Data Home Medications Medication Instructions Recorded Confirmed cholecalciferol (vitamin D3) 1 spray HS #0 02/15/17 11/05/18 aspirin 81 mg tablet,delayed 81 mg PO DAILY 10/08/18 11/05/18 release calcium carbonate 500 mg calcium 500 mg PO DAILY tab 10/08/18 11/05/18 (1,250 mg) tablet citalopram 40 mg tablet 20 mg PO DAILY 10/08/18 11/05/18 famotidine 20 mg tablet 20 mg PO DAILY 10/08/18 11/05/18 tamsulosin 0.4 mg capsule 0.4 mg PO DAILY 10/08/18 11/05/18 rosuvastatin 10 mg PO DAILY 11/05/18 11/05/18 Previous Rx's Medication Instructions Recorded docusate sodium [Colace] 100 mg PO BID #60 cap 11/05/18 ibuprofen 400 mg PO Q6H PRN #90 cap 11/05/18 oxycodone 5 mg PO Q4-6H PRN #30 cap 11/05/18 Allergies Allergy/AdvReac Type Severity Reaction Status Date / Time clopidogrel [CLOPIDOGREL] Allergy Severe HIVES Verified 11/05/18 07:18 erythromycin base Allergy Severe HIVES Verified 11/05/18 07:18 [ERYTHROMYCIN BASE] hazelnut [HAZELNUT] Allergy Severe MOUTH Verified 11/05/18 07:18 SWELLING, ITCHING codeine [CODEINE] AdvReac Severe VERTIGO, Verified 11/05/18 07:18 NAUSEA, VOMITING hydromorphone [HYDROMORPHONE] AdvReac Severe VERTIGO, Verified 11/05/18 07:18 NAUSEA, VOMITING, FEELS LIKE ANTS ON MY SKIN morphine [MORPHINE] AdvReac Severe VERTIGO, Verified 11/05/18 07:18 NAUSEA, VOMITING ARUGULA Allergy Severe THROAT Uncoded 10/08/18 14:36 SWELLING PFSH Social History marital status: household members: spouse occupational status: previously employed Smoking Status: Never smoker alcohol intake: current substance use type: does not use Exam Initial Vital Signs Initial Vital Signs: Vital Signs Temperature 99.1 F 11/12/18 19:00 Pulse Rate 118 H 11/12/18 19:00 Respiratory Rate 22 11/12/18 19:00 Blood Pressure 139/81 11/12/18 19:00 Pulse Oximetry 95 11/12/18 19:00 Course Orders Ordered: ED Orders 11/12/18 19:40 Complete Blood Count AUTO DIFF Stat Comprehensive Metabolic Panel Stat Lactate (Lactic Acid) Stat Lipase Stat Partial Thromboplastin Time Stat Procalcitonin Stat Prothrombin Time INR Stat 11/12/18 19:48 XR chest 1V Stat EKG-12 Lead Stat 11/12/18 20:00 Blood Culture Stat 11/12/18 21:04 CT abdomen pelvis w con Stat 11/12/18 21:30 Urine Microscopic Stat Discontinued Medications Sodium Chloride (Normal Saline 0.9%) 1,000 mls @ 1,000 mls/hr IV BOLUS ONE Stop: 11/12/18 20:47 Last Infusion: 11/12/18 21:04 Dose: 0 mls/hr Documented by: Admin: 11/12/18 20:04 Dose: 1,000 mls/hr Documented by: CHAS Ceftriaxone Sodium/Dextrose (Rocephin) 2 gm in 50 mls @ 100 mls/hr IV NOW ONE Stop: 11/12/18 21:32 Last Admin: 11/12/18 22:11 Dose: 100 mls/hr Documented by: CHAS Metronidazole (Flagyl) 500 mg in 100 mls @ 100 mls/hr IV NOW ONE Stop: 11/12/18 22:02 Lidocaine/Epinephrine (Xylocaine 1% W/Epi) 12 ml INJ INTRA-OP ONE Stop: 11/12/18 21:45 Last Admin: 11/12/18 21:50 Dose: 12 ml Documented by: JAKE Silver Nitrate/Potassium Nitrate (Silver Nitrate Stick) 2 each TOP NOW ONE Stop: 11/12/18 21:45 Last Admin: 11/12/18 21:51 Dose: 2 each Documented by: JAKE Vital Signs Vital signs: Vital Signs - 8 hr 11/12/18 19:00 11/12/18 20:00 11/12/18 21:00 Temperature 99.1 F Pulse Rate 118 H 74 72 Respiratory Rate 22 15 20 Blood Pressure 139/81 Blood Pressure [Right Arm] 137/68 137/64 Pulse Oximetry 95 97 98 11/12/18 22:12 Temperature Pulse Rate 86 Respiratory Rate 16 Blood Pressure Blood Pressure [Right Arm] 133/73 Pulse Oximetry 100 MDM - Fever Lab Data Result diagrams: 11/12/18 19:40 11/12/18 19:40 Labs: Lab Results 11/12/18 11/12/18 11/12/18 Range/Units 19:40 19:40 19:40 WBC 8.9 (4.5-11.0) X10^3/uL RBC 4.65 (4.0-5.2) X10^6/uL Hgb 14.0 (12.0-16.0) g/dL Hct 41.3 (36-46) % MCV 89.0 (80-100) fL MCH 30.2 (26-34) PG MCHC 33.9 (30-36) % RDW 12.8 (11.6-14.8) % Plt Count 155 (150-400) X10^3/uL Neut % (Auto) 89.4 H (50-75) % Lymph % (Auto) 3.4 L (25-40) % Maries % (Auto) 6.0 (3-14) % Eos % (Auto) 0.4 L (2-4) % Baso % (Auto) 0.8 (0-2) % Neut # (Auto) 7900 H (7525-5523) /uL Lymph # (Auto) 300 L (8120-1414) /uL Maries # (Auto) 500 (0-900) /uL Eos # (Auto) 0 (0-450) /uL Baso # (Auto) 100 (0-100) /uL PT 11.3 (10.1-12.7) SECONDS INR 1.0 (0.9-1.3) APTT 30 (26.4-36.2) SECONDS Sodium (137-145) mmol/L Potassium (3.4-5.1) mmol/L Chloride (98-107) mmol/L Carbon Dioxide (22-32) mmol/L BUN (7-17) mg/dL Creatinine (0.52-1.04) mg/dL Estimated GFR (>60) mL/min BUN/Creatinine Ratio (6-22) Glucose (80-110) mg/dL Lactate (0.7-2.1) mmol/L Calcium (8.4-10.2) mg/dL Total Bilirubin (0.2-1.3) mg/dL AST (14-36) IU/L ALT (9-52) IU/L Alkaline Phosphatase (38-126) U/L Total Protein (6.3-8.2) g/dL Albumin (3.5-5.0) g/dL Globulin (1.7-4.1) g/dL Albumin/Globulin Ratio (1.0-2.8) Lipase (23-300) U/L Procalcitonin 0.91 H (<0.5) ng/mL 11/12/18 11/12/18 Range/Units 19:40 19:40 WBC (4.5-11.0) X10^3/uL RBC (4.0-5.2) X10^6/uL Hgb (12.0-16.0) g/dL Hct (36-46) % MCV (80-100) fL MCH (26-34) PG MCHC (30-36) % RDW (11.6-14.8) % Plt Count (150-400) X10^3/uL Neut % (Auto) (50-75) % Lymph % (Auto) (25-40) % Maries % (Auto) (3-14) % Eos % (Auto) (2-4) % Baso % (Auto) (0-2) % Neut # (Auto) (6720-4280) /uL Lymph # (Auto) (2073-1642) /uL Maries # (Auto) (0-900) /uL Eos # (Auto) (0-450) /uL Baso # (Auto) (0-100) /uL PT (10.1-12.7) SECONDS INR (0.9-1.3) APTT (26.4-36.2) SECONDS Sodium 136 L (137-145) mmol/L Potassium 4.0 (3.4-5.1) mmol/L Chloride 100 (98-107) mmol/L Carbon Dioxide 24 (22-32) mmol/L BUN 17 (7-17) mg/dL Creatinine 0.80 (0.52-1.04) mg/dL Estimated GFR > 60.0 (>60) mL/min BUN/Creatinine Ratio 21.3 (6-22) Glucose 118 H (80-110) mg/dL Lactate 1.1 (0.7-2.1) mmol/L Calcium 10.4 H (8.4-10.2) mg/dL Total Bilirubin 0.6 (0.2-1.3) mg/dL AST 35 (14-36) IU/L ALT 26 (9-52) IU/L Alkaline Phosphatase 103 (38-126) U/L Total Protein 7.7 (6.3-8.2) g/dL Albumin 4.4 (3.5-5.0) g/dL Globulin 3.3 (1.7-4.1) g/dL Albumin/Globulin Ratio 1.3 (1.0-2.8) Lipase 95 (23-300) U/L Procalcitonin (<0.5) ng/mL Urine Dip Bedside Urine Glucose Negative Bedside Urine Bilirubin - Negative Bedside Urine Ketone ++ 40 Urine Specific [place] 1.010 Bedside Urine Occult Blood +/- Bedside Urine pH 7.0 Bedside Urine Protein - Negative Bedside Urine Urobilinogen +/- 1mg Bedside Urine Nitrite - Negative Bedside Urine Leukocytes - Negative Esterase Discharge Plan Departure Prescriptions: No Action cholecalciferol (vitamin D3) 1,000 unit/spray spray,suspension 1 spray HS Qty: 0 RF: 0 aspirin 81 mg tablet,delayed release (DR/EC) 81 mg PO DAILY RF: 0 calcium carbonate [Calcium 500] 500 mg calcium (1,250 mg) tablet 500 mg PO DAILY RF: 0 citalopram 40 mg tablet 20 mg PO DAILY RF: 0 famotidine 20 mg tablet 20 mg PO DAILY RF: 0 tamsulosin 0.4 mg capsule 0.4 mg PO DAILY RF: 0 rosuvastatin 10 mg Tablet 10 mg PO DAILY RF: 0 oxycodone 5 mg capsule 5 mg PO Q4-6H PRN (Reason: pain) Qty: 30 RF: 0 ibuprofen 200 mg capsule 400 mg PO Q6H PRN (Reason: pain) Qty: 90 RF: 0 docusate sodium [Colace] 100 mg capsule 100 mg PO BID Qty: 60 RF: 0
[2018-11-12] MEDS: metroNIDAZOLE 500 MG/100 ML PIGGYBACK 100 MG IV (22:31)
[2018-11-12 22:34] LABS: Culture Indicated Urine Cult Not Indicated
--- NOTE | 2018-11-12 22:41 | P.HP_ITS ---
History of Present Illness History of Present Illness Date Patient Seen: 11/12/18 Time Patient Seen: 22:47 Chief complaint: FEVER 103 NAUSEA Narrative: 83 yo woman POD7 s/p colonoscopy and right posterior hemorrhoid with internal hemorrhoid banding. She returned home and had anal discomfort for several days. However yesterday began to feel feverish and unwell. This afternoon she developed a measured oral temperature of 103 with rigors and marked malase. She felt light headed and nauseated. Taken to ER where her inital HR 118 and looked moderately unwell. Now continues to feel moderately poor but - choses well between ill and well. Denies abdominal pain completely. Reports anal pain not worsening since 1 day after procedure. No dysuria or urgency. Patient History Family & Social History Social History: household members spouse Tobacco & Substance use: Smoking Status Never smoker alcohol intake current Meds Home Medications and Allergies Home Medications Medication Instructions Recorded Confirmed Type cholecalciferol (vitamin D3) 1 spray HS #0 02/15/17 11/05/18 History aspirin 81 mg tablet,delayed 81 mg PO DAILY 10/08/18 11/05/18 History release calcium carbonate 500 mg calcium 500 mg PO DAILY tab 10/08/18 11/05/18 History (1,250 mg) tablet citalopram 40 mg tablet 20 mg PO DAILY 10/08/18 11/05/18 History famotidine 20 mg tablet 20 mg PO DAILY 10/08/18 11/05/18 History tamsulosin 0.4 mg capsule 0.4 mg PO DAILY 10/08/18 11/05/18 History docusate sodium [Colace] 100 mg PO BID #60 cap 11/05/18 Rx ibuprofen 400 mg PO Q6H PRN #90 cap 11/05/18 Rx oxycodone 5 mg PO Q4-6H PRN #30 cap 11/05/18 Rx rosuvastatin 10 mg PO DAILY 11/05/18 11/05/18 History Allergies Allergy/AdvReac Type Severity Reaction Status Date / Time clopidogrel [CLOPIDOGREL] Allergy Severe HIVES Verified 11/05/18 07:18 erythromycin base Allergy Severe HIVES Verified 11/05/18 07:18 [ERYTHROMYCIN BASE] hazelnut [HAZELNUT] Allergy Severe MOUTH Verified 11/05/18 07:18 SWELLING, ITCHING codeine [CODEINE] AdvReac Severe VERTIGO, Verified 11/05/18 07:18 NAUSEA, VOMITING hydromorphone [HYDROMORPHONE] AdvReac Severe VERTIGO, Verified 11/05/18 07:18 NAUSEA, VOMITING, FEELS LIKE ANTS ON MY SKIN morphine [MORPHINE] AdvReac Severe VERTIGO, Verified 11/05/18 07:18 NAUSEA, VOMITING ARUGULA Allergy Severe THROAT Uncoded 10/08/18 14:36 SWELLING Review of Systems Constitutional Constitutional: Denies fever(s) Eyes Eyes: Denies bulging eyes ENT Ears, Nose, Mouth, and Throat: No lip swelling Cardiovascular Cardiovascular: Denies generalize swelling Respiratory Respiratory: Denies stridor Gastrointestinal Gastrointestinal: Denies coffee ground emesis Musculoskeletal Musculoskeletal: Denies loss of height Integumentary/Breasts Skin/Breast: Denies wounds Neurologic Neurologic: Denies abnormal speech and Denies confusion Psychiatric Psychiatric: Denies confusion and Denies tactile hallucinations Endocrine Endocrine: Denies deepening of the voice Hematologic/Lymphatic Hematologic/Lymphatic: Denies lymphadenopathy Allergic/Immunologic Allergic/Immunologic: Denies lip swelling Exam Vital Signs (past 8 hours): - 11/12/18 19:00 11/12/18 20:00 11/12/18 21:00 Temperature 99.1 F Pulse Rate 118 H 74 72 Respiratory Rate 22 15 20 Blood Pressure 139/81 Blood Pressure [Right Arm] 137/68 137/64 Pulse Oximetry 95 97 98 11/12/18 22:12 Temperature Pulse Rate 86 Respiratory Rate 16 Blood Pressure Blood Pressure [Right Arm] 133/73 Pulse Oximetry 100 Oxygen Delivery Method Room Air Const General: cooperative Orientation: alert HENCA Head: normal to inspection Nose: nares normal Mouth: oral mucosae normal and lip normal Eyes Eyelids: eyelids normal Conjunctivae: conjunctivae normal Sclera: sclerae normal Neck Neck: supple and other (No thyromegally) Chest Chest: other (LCTAB , regular respiratory effort) Cardio Rhythm: regular rhythm Heart Sounds: S1 normal, S2 normal, no gallops, no murmurs and no rubs GI Other: Abdomen - non distended, low midline incisional scar, dull to percussion, no HSM, hypoactive BS. Quite agressive abdominal palation without tenderness. Neg bed shake, no reflexive guarding, no rebound. Anal exam- lighted anoscope inserted - rectum without edema - site of banding on R seen - small amount of ishemic tissue adjacent to band. No other bands seen. Left lateral external hemorrhoid with circular punched out area 1.5x 2cm with liquifactive necrosis. Foul smelling. Adjacent anodurem with induration and erythema. UNA - internal site of band is minimally tender, marked tender on L lateral area at site of necrosis Skin General: no rashes or lesions noted Neuro General: alert and awake Psych Appearance: grossly normal Affect: normal affect Objective Labs Result Diagrams: 11/12/18 19:40 11/12/18 19:40 Labs: Laboratory Results - last 24 hr 11/12/18 11/12/18 11/12/18 19:40 19:40 19:40 WBC 8.9 RBC 4.65 Hgb 14.0 Hct 41.3 MCV 89.0 MCH 30.2 MCHC 33.9 RDW 12.8 Plt Count 155 Neut % (Auto) 89.4 H Lymph % (Auto) 3.4 L [place] % (Auto) 6.0 Eos % (Auto) 0.4 L Baso % (Auto) 0.8 Neut # (Auto) 7900 H Lymph # (Auto) 300 L Dickinson # (Auto) 500 Eos # (Auto) 0 Baso # (Auto) 100 PT 11.3 INR 1.0 APTT 30 Sodium Potassium Chloride Carbon Dioxide BUN Creatinine Estimated GFR BUN/Creatinine Ratio Glucose Lactate Calcium Total Bilirubin AST ALT Alkaline Phosphatase Total Protein Albumin Globulin Albumin/Globulin Ratio Lipase Procalcitonin 0.91 H Urine RBC Urine WBC Urine Bacteria Ur Culture Indicated? 11/12/18 11/12/18 11/12/18 19:40 19:40 21:30 WBC RBC Hgb Hct MCV MCH MCHC RDW Plt Count Neut % (Auto) Lymph % (Auto) Dickinson % (Auto) Eos % (Auto) Baso % (Auto) Neut # (Auto) Lymph # (Auto) [place] # (Auto) Eos # (Auto) Baso # (Auto) PT INR APTT Sodium 136 L Potassium 4.0 Chloride 100 Carbon Dioxide 24 BUN 17 Creatinine 0.80 Estimated GFR > 60.0 BUN/Creatinine Ratio 21.3 Glucose 118 H Lactate 1.1 Calcium 10.4 H Total Bilirubin 0.6 AST 35 ALT 26 Alkaline Phosphatase 103 Total Protein 7.7 Albumin 4.4 Globulin 3.3 Albumin/Globulin Ratio 1.3 Lipase 95 Procalcitonin Urine RBC None seen Urine WBC None seen Urine Bacteria None seen Ur Culture Indicated? Cult not indicated Assessment & Plan Assessment and plan (1) Sepsis: Current visit: Yes Status: Acute Assessment & Plan narrative: 83 yo woman presents to ER with perinal sepsis from necrotic external hemorrhoid of Left lateral column. She was tackycardic, had systoic hypotention with preserved MAP, no active evidence of organ dysfunction. Mentating. Recently VS have improved with 2L IVF, IV ceftriaxone and metronidazole in ED. At bedside in ER I fully debrided necrotic hemorrhoid back to viable bleeding healthy tissue. Multiple large thrombi removed from underlying hemorrhoidal veins. Deep tissue explored - viable with out necrosis. Etiology of ischemia from venous thrombosis possible though this would be odd. Now s/p source control and IV Abx Plan: Admit Continue IV Ceftriaxone and metronidazole, probiotic If declines or slow improvement will take to OR tomorrow - NPO, Ok for meds Hm statin, ASA, tamsulosin Multiple opiate allergies - oxycodone works well for her
[2018-11-12 23:00] VITALS: BP 143/64; PULSE 74; RESP 22; O2SAT 97
[2018-11-12 23:04] VITALS: BP 143/64; PULSE 72; RESP 16; TEMP 36.6; O2SAT 98
[2018-11-12] MEDS: OXYCODONE IR 5 MG TABLET PO (23:08)
--- NOTE | 2018-11-12 23:12 | PC.NURSE ---
Pt tolerated cauterizing procedure well. noted to have soft BP post procedure with systolic BP in 80s--MAP >65. MD aware and advised to infuse LR bolus. BP rechecked and 143/64. having pain and given oxy 5mg PO. Report called to ICU.
[2018-11-12] MEDS: LACTATED RINGERS 1,000 ML 100 ML IV (23:15)
[2018-11-13] VITALS (10 sets, daily range): BP systolic 115–140; BP diastolic 52–80; PULSE 58–73; RESP 13–20; TEMP 36.3–36.8; O2SAT 93–100; BMI 29.5
[2018-11-13] MEDS: ACETAMINOPHEN 325 MG TABLET 650 MG PO ×4 (00:21→17:21)
[2018-11-13] MEDS: OXYCODONE IR 10 MG TABLET PO ×3 (00:22→11:48)
[2018-11-13] MEDS: ROSUVASTATIN 10 MG TABLET PO ×2 (00:23→19:54)
[2018-11-13] MEDS: LACTATED RINGERS 1,000 ML 100 ML IV ×2 (00:48→12:13)
[2018-11-13] MEDS: metroNIDAZOLE 500 MG/100 ML PIGGYBACK 100 MG IV ×3 (04:42→20:47)
[2018-11-13 05:05] LABS: Blood Urea Nitrogen 14 mg/dL (7-17); Calcium 8.7 mg/dL (8.4-10.2); Carbon Dioxide 26 mmol/L (22-32); Chloride 104 mmol/L (98-107); Estimated Glomerular Filt Rate > 60.0 mL/min (>60); Glucose 112 mg/dL (80-110); HEMOLYSIS < 15 (0-50); Potassium 3.8 mmol/L (3.4-5.1); Sodium 135 mmol/L (137-145)
[2018-11-13 05:07] LABS: Add Manual Diff / Slide Review NO; Basophils Absolute Auto 0 /uL (0-100); Basophils Percent Auto 0.4 % (0-2); Eosinophils Absolute Auto 0 /uL (0-450); Eosinophils Percent Auto 0.4 % (2-4); Hematocrit 33.5 % (36-46); Hemoglobin 11.5 g/dL (12.0-16.0); Lymphocytes Absolute Auto 500 /uL (1100-4500); Lymphocytes Percent Auto 6.7 % (25-40); Mean Corpuscular HGB Conc 34.4 % (30-36); Mean Corpuscular Hemoglobin 30.7 PG (26-34); Mean Corpuscular Volume 89.2 fL (80-100); Monocytes Absolute Auto 500 /uL (0-900); Monocytes Percent Auto 7.2 % (3-14); Neutrophils Absolute Auto 6100 /uL (1500-7000); Neutrophils Percent Auto 85.3 % (50-75); Platelet Count 139 X10^3/uL (150-400); Red Blood Cell Count 3.76 X10^6/uL (4.0-5.2); Red Cell Distribution Width 13.1 % (11.6-14.8); White Blood Cell Count 7.2 X10^3/uL (4.5-11.0)
--- NOTE | 2018-11-13 06:47 | PC.NURSE ---
Admitted to rm 105 via gurney, a/o, with IV in right as. Attempted to void on bscx3 without success, bladder scan showed >500ml, Dr. Foreman called and orders received to place fole with immediate return of clear yellow urine. Each time pt stood to use bsc would have droplets of demario blood on floor and down legs, notified of that also. Med with oxycodone 10mg x2 with good relief.
[2018-11-13] MEDS: LACTOBACILLUS ACIDOPHILUS TABLET 1 EACH PO ×3 (10:13→17:20)
[2018-11-13] MEDS: HEPARIN 5,000 UNIT/ML VIAL 5000 UNIT SUBCUT ×3 (12:31→22:18)
--- NOTE | 2018-11-13 13:42 | P.PN_ITS ---
Subjective Subjective Date Patient Seen: 11/13/18 Time Patient Seen: 13:42 Interval history: Pain improving. No fevers nausea vomiting overnight. Exam Vital Signs (past 8 hours): - 11/13/18 07:43 11/13/18 09:00 11/13/18 09:10 Temperature 97.3 F L 97.3 F L Pulse Rate 58 L 63 Respiratory Rate 15 20 Blood Pressure 115/52 L 121/63 Pulse Oximetry 93 94 11/13/18 12:00 Temperature 97.9 F Pulse Rate 73 Respiratory Rate 13 Blood Pressure 123/57 L Pulse Oximetry 97 Oxygen Delivery Method Room Air Narrative Exam Narrative: General adult female alert and oriented no acute distress Chest nonlabored respirations no audible wheezes Abdomen soft nontender nondistended. Rectal internal exam performed demonstrates excised left lateral hemorrhoidal column with clean healthy tissue at the base of the wound. Hemostatic. Objective Labs Result Diagrams: 11/13/18 04:45 11/13/18 04:45 Labs: Laboratory Results - last 24 hr 11/12/18 11/12/18 11/12/18 19:40 19:40 19:40 WBC 8.9 RBC 4.65 Hgb 14.0 Hct 41.3 MCV 89.0 MCH 30.2 MCHC 33.9 RDW 12.8 Plt Count 155 Neut % (Auto) 89.4 H Lymph % (Auto) 3.4 L [place] % (Auto) 6.0 Eos % (Auto) 0.4 L Baso % (Auto) 0.8 Neut # (Auto) 7900 H Lymph # (Auto) 300 L [place] # (Auto) 500 Eos # (Auto) 0 Baso # (Auto) 100 PT 11.3 INR 1.0 APTT 30 Sodium Potassium Chloride Carbon Dioxide BUN Creatinine Estimated GFR BUN/Creatinine Ratio Glucose Lactate Calcium Total Bilirubin AST ALT Alkaline Phosphatase Total Protein Albumin Globulin Albumin/Globulin Ratio Lipase Procalcitonin 0.91 H Urine RBC Urine WBC Urine Bacteria Ur Culture Indicated? Nasal Screen MRSA (PCR) 11/12/18 11/12/18 11/12/18 19:40 19:40 21:30 WBC RBC Hgb Hct MCV MCH MCHC RDW Plt Count Neut % (Auto) Lymph % (Auto) [place] % (Auto) Eos % (Auto) Baso % (Auto) Neut # (Auto) Lymph # (Auto) [place] # (Auto) Eos # (Auto) Baso # (Auto) PT INR APTT Sodium 136 L Potassium 4.0 Chloride 100 Carbon Dioxide 24 BUN 17 Creatinine 0.80 Estimated GFR > 60.0 BUN/Creatinine Ratio 21.3 Glucose 118 H Lactate 1.1 Calcium 10.4 H Total Bilirubin 0.6 AST 35 ALT 26 Alkaline Phosphatase 103 Total Protein 7.7 Albumin 4.4 Globulin 3.3 Albumin/Globulin Ratio 1.3 Lipase 95 Procalcitonin Urine RBC None seen Urine WBC None seen Urine Bacteria None seen Ur Culture Indicated? Cult not indicated Nasal Screen MRSA (PCR) 11/12/18 11/13/18 11/13/18 23:55 04:45 04:45 WBC 7.2 RBC 3.76 L Hgb 11.5 L Hct 33.5 L MCV 89.2 MCH 30.7 MCHC 34.4 RDW 13.1 Plt Count 139 L Neut % (Auto) 85.3 H Lymph % (Auto) 6.7 L [place] % (Auto) 7.2 Eos % (Auto) 0.4 L Baso % (Auto) 0.4 Neut # (Auto) 6100 Lymph # (Auto) 500 L [place] # (Auto) 500 Eos # (Auto) 0 Baso # (Auto) 0 PT INR APTT Sodium 135 L Potassium 3.8 Chloride 104 Carbon Dioxide 26 BUN 14 Creatinine 0.70 Estimated GFR > 60.0 BUN/Creatinine Ratio 20.0 Glucose 112 H Lactate Calcium 8.7 Total Bilirubin AST ALT Alkaline Phosphatase Total Protein Albumin Globulin Albumin/Globulin Ratio Lipase Procalcitonin Urine RBC Urine WBC Urine Bacteria Ur Culture Indicated? 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 No plans for further surgical therapy as the wound is clean and the source adequately controlled. Plan Continue ceftriaxone and Flagyl Diet as tolerated VTE prophylaxis with SCDs and subcu heparin May transfer to floor today Urinary catheter for acute urinary retention will restart home flowmax plan to remove tomorrow Sitz bath twice daily Quality VTE Deep Vein Thrombosis/Pulmonary Embolism Present on Admission: Yes
--- NOTE | 2018-11-13 15:00 | PC.NURSE ---
Dayshift Note: Pt checked on and assessed. Pt sitting in bed, denies pain, VSS. Dr. Juarez to bedside, did a speculum rectal exam at bedside to to examine perineal tissue after I and D and debridement in ER by Dr. Valentin. Pt otherwise with uneventful day. Moon in place, draining clear sandy urine. Oxycodone for pain. Pt is alert and oriented. Tolerating diet. Sleeping on and off.
[2018-11-13] MEDS: CEFTRIAXONE 2 GM/50 ML FROZ.PIGGY IV (19:49)
[2018-11-13] MEDS: CITALOPRAM 20 MG TABLET 40 MG PO (19:54)
[2018-11-13] MEDS: TAMSULOSIN 0.4 MG CAPSULE PO (19:54)
[2018-11-14] VITALS: BP 133/66; PULSE 63; RESP 17; TEMP 37.2; O2SAT 96; O2SAT 97
[2018-11-14] MEDS: ACETAMINOPHEN 325 MG TABLET 650 MG PO (00:27)
[2018-11-14 03:45] VITALS: BP 136/65; PULSE 66; RESP 22; TEMP 37.2; O2SAT 95
[2018-11-14] MEDS: metroNIDAZOLE 500 MG/100 ML PIGGYBACK 100 MG IV ×2 (03:45→13:44)
[2018-11-14 08:00] VITALS: BP 142/67; PULSE 65; RESP 18; TEMP 36.6; O2SAT 95; O2SAT 98
--- NOTE | 2018-11-14 09:08 | CM.DANOTE ---
DCP/Assessment: Reviewed chart. Patient is a 83yr old female admitted to [facility] with possible sepsis. PCP is Dr. Neil. Primary payor is 1)Medicare 2)t. Met with patient on 11-13-18 explained CM/SW role. Patient reports that patient is completely I in all ADL's. Patient and her spouse reside in [place]. Patient reports being very active at baseline. Confirmed with nursing that they plan to get her up today to walk. Patient does not anticipate any d/c planning needs. P: Home when stable. YISSEL Mckinnon Discharge Planning/Care Management CM Discharge Assessment Start: 11/13/18 08:51 Freq: Status: Active Protocol: Document 11/14/18 09:07 KJS (Rec: 11/14/18 09:08 [id number]) Discharge Planning Assessment Assigned [employer] Operator YISSEL Mckinnon Contact Information Dangelo Hemphill (spouse) # [phone] Advance Directives? No Advance Directives on File No History Provided By Patient,Medical Record Has Patient been admitted in last 30 No days? Prior Living Arrangements House Household Members spouse Type of transporation used prior to Drives own vehicle admit Independent with ADL's Yes Is patient alert and oriented? Yes Caregiver for Another No Barriers to Discharge No Discharge Plan Home Referrals Initiated None needed Whiteboard Updated in Patient Room with Yes name and ext. # of [employer] Der[employer] Operator Review Status In Process Next Review Type Continued Stay Review
[2018-11-14] MEDS: HEPARIN 5,000 UNIT/ML VIAL 5000 UNIT SUBCUT (09:16)
[2018-11-14] MEDS: LACTOBACILLUS ACIDOPHILUS TABLET 1 EACH PO (09:17)
[2018-11-14] MEDS: POLYETHYLENE GLYCOL 3350 17 GM POWD.PACK PO (11:09)
[2018-11-14] MEDS: DOCUSATE 100 MG CAPSULE PO (11:19)
[2018-11-14 12:00] VITALS: BP 142/67; PULSE 77; RESP 18; TEMP 37.1; O2SAT 95
[2018-11-14] MEDS: ONDANSETRON 4 MG/2 ML INJ IV (13:32)
--- NOTE | 2018-11-14 14:52 | PC.NURSE ---
Dayshift Note: Pt with discharge orders contingent on urination after andre removal. Pt with intermittent nausea and attempting to have BM this shift. Pt given miralax and docusate per MD order. Pt able to void at ~ 1230 this shift, but continued to be nauseated. Pt had been refusing anti-nausea medication, shower and sitz bath up until this time. Pt ate lunch, then agreed to sitz bath, but was mildly nauseated. Once pt was up to sitz bath, she had urge to have BM, sitz bath removed and pt tried to have BM. Pt then more nauseated. Very small BM noted. Pt given pavan, Dr. Juarez notified and to bedside to speak with pt. Pt's nausea resolved by that time and it was agreed that pt would discharge as planned. Pt prepared for discharge and discharged via wheelchair without incident.
--- NOTE | 2018-11-15 07:45 | PM.DS.1 ---
History of Present Illness History of Present Illness Chief complaint: FEVER 103 NAUSEA Discharge Providers Provider Date of admission: 11/12/18 22:36 Discharge Date: 11/14/18 Primary care physician: Juan Neil MD Discharge provider: Kendrick Juarez MD Summary Hospital Course Discharge Diagnosis: perineal sepsis Hospital Course: The patient underwent a 2 colonoscopy with hemorrhoidal banding of the right posterior lateral pedicle 11/05/18. She presented to the Emergency Room 11/12 with reported fever home mild tachycardia and hypotension and was found to have a necrotic left external hemorrhoid. She had a CT of the abdomen pelvis that was negative for abscess free air or free fluid. She underwent excisional debridement of the left hemorrhoid and resuscitation with IV fluids and antibiotics and her hemodynamics normalized rapidly. On the date of discharge she is afebrile vital signs within normal limits no leukocytosis or pain and inspection of the rectum demonstrates clean healthy tissue at the base of the previous left external hemorrhoid. She will be discharged on a course of levofloxacin. She has been provided emergency return precautions. She is instructed to continue Sitz baths. Status at Discharge Cognitive/behavioral status at discharge: oriented Functional status at discharge: independent ambulation Overall status at discharge: patient is back to baseline Time Spent with Patient Time spent: Greater than 30 minutes Exam Vital Signs (past 8 hours): Oxygen Delivery Method Room Air Oxygen Flow Rate 0 Narrative Exam Narrative: General adult female alert oriented no acute distress Abdomen soft nontender nondistended Rectum Clean healthy base of tissue where the previous left external hemorrhoid had been nontender on internal examination Objective Labs Result Diagrams: 11/13/18 04:45 11/13/18 04:45 Discharge Plan Discharge Plan Patient Disposition: Home Discharge Med Rec/Prescriptions Prescriptions: New levofloxacin 500 mg tablet 500 mg PO DAILY Qty: 7 RF: 0 Continued cholecalciferol (vitamin D3) 1,000 unit/spray spray,suspension 1 spray HS Qty: 0 RF: 0 aspirin 81 mg tablet,delayed release (DR/EC) 81 mg PO DAILY RF: 0 calcium carbonate [Calcium 500] 500 mg calcium (1,250 mg) tablet 500 mg PO DAILY RF: 0 citalopram 40 mg tablet 20 mg PO DAILY RF: 0 famotidine 20 mg tablet 20 mg PO DAILY RF: 0 tamsulosin 0.4 mg capsule 0.4 mg PO DAILY RF: 0 rosuvastatin 10 mg Tablet 10 mg PO DAILY RF: 0 oxycodone 5 mg capsule 5 mg PO Q4-6H PRN (Reason: pain) Qty: 30 RF: 0 ibuprofen 200 mg capsule 400 mg PO Q6H PRN (Reason: pain) Qty: 90 RF: 0 docusate sodium [Colace] 100 mg capsule 100 mg PO BID Qty: 60 RF: 0 Follow up/Referrals: Juan Neil MD [Primary Care Provider] - Visit Report/Discharge Packet Instructions: DI for Anal Rectal Surgery Discharge Data Primary Care Provider: Juan Neil V Discharges patient from system. Discharge Date/Time: 11/14/18 15:15 Quality VTE Deep Vein Thrombosis/Pulmonary Embolism Present on Admission: Yes
--- NOTE | 2018-11-15 14:56 | ED_ITS ---
HPI - Fever General Chief Complaint: Fever Stated Complaint: FEVER 103 NAUSEA Time Seen by Provider: 11/12/18 19:49 Source: patient Mode of arrival: Ambulatory Limitations: no limitations History of Present Illness HPI Narrative: Patient sent to the emergency department by surgery after developing a fever, approximately 1 week status post hemorrhoidectomy. Patient states that she has had temperatures up to 103 at home, and rectal pain. No abdominal pain. No cough or shortness of breath. No dysuria. No purulent drainage from her anal area. No other complaints at this time. Related Data Home Medications Medication Instructions Recorded Confirmed cholecalciferol (vitamin D3) 1 spray HS #0 02/15/17 11/13/18 aspirin 81 mg tablet,delayed 81 mg PO DAILY 10/08/18 11/13/18 release calcium carbonate 500 mg calcium 500 mg PO DAILY tab 10/08/18 11/13/18 (1,250 mg) tablet citalopram 40 mg tablet 20 mg PO DAILY 10/08/18 11/13/18 famotidine 20 mg tablet 20 mg PO DAILY 10/08/18 11/13/18 tamsulosin 0.4 mg capsule 0.4 mg PO DAILY 10/08/18 11/13/18 rosuvastatin 10 mg PO DAILY 11/05/18 11/13/18 Previous Rx's Medication Instructions Recorded docusate sodium [Colace] 100 mg PO BID #60 cap 11/05/18 ibuprofen 400 mg PO Q6H PRN #90 cap 11/05/18 oxycodone 5 mg PO Q4-6H PRN #30 cap 11/05/18 levofloxacin 500 mg PO DAILY #7 tab 11/14/18 Allergies Allergy/AdvReac Type Severity Reaction Status Date / Time clopidogrel [CLOPIDOGREL] Allergy Severe HIVES Verified 11/05/18 07:18 erythromycin base Allergy Severe HIVES Verified 11/05/18 07:18 [ERYTHROMYCIN BASE] hazelnut [HAZELNUT] Allergy Severe MOUTH Verified 11/05/18 07:18 SWELLING, ITCHING codeine [CODEINE] AdvReac Severe VERTIGO, Verified 11/05/18 07:18 NAUSEA, VOMITING hydromorphone [HYDROMORPHONE] AdvReac Severe VERTIGO, Verified 11/05/18 07:18 NAUSEA, VOMITING, FEELS LIKE ANTS ON MY SKIN morphine [MORPHINE] AdvReac Severe VERTIGO, Verified 11/05/18 07:18 NAUSEA, VOMITING ARUGULA Allergy Severe THROAT Uncoded 10/08/18 14:36 SWELLING Review of Systems Constitutional Constitutional: Denies chills, Denies fatigue, Reports fever(s), Denies lethargy and Denies weakness Eyes Eyes: Denies change in vision, Denies eye discharge, Denies irritation and Denies loss of vision ENT Ears, Nose, Mouth, and Throat: Denies change in voice, Denies neck pain, Denies sore throat and Denies throat swelling Cardiovascular Cardiovascular: Denies chest pain, Denies irregular heart rhythm, Denies lighth eadedness, Denies palpitations, Denies dyspnea, Denies dyspnea on exertion and Denies orthopnea Respiratory Respiratory: Denies cough, Denies dyspnea, Denies dyspnea on exertion and Denies wheezing Gastrointestinal Gastrointestinal: Denies abdominal pain, Denies change in bowel habits, Denies diarrhea, Denies nausea and Denies vomiting Genitourinary Genitourinary: Denies hematuria, Denies flank pain, Denies urinary incontinence and Denies urinary urgency Comments: Rectal pain Musculoskeletal Musculoskeletal: Denies back pain, Denies muscle weakness, Denies neck pain, Denies numbness and Denies tingling Integumentary/Breasts Skin/Breast: Denies pruritus, Denies erythema, Denies rash and Denies wounds Neurologic Neurologic: Denies abnormal speech, Denies confusion, Denies loss of vision, Denies numbness, Denies tingling and Denies weakness Psychiatric Psychiatric: Denies confusion Endocrine Endocrine: Denies fatigue, Denies flushing and Denies palpitations Hematologic/Lymphatic Hematologic/Lymphatic: Denies easy bruising Allergic/Immunologic Allergic/Immunologic: Denies urticaria, Denies throat swelling and Denies wheezing [facility] Medical History Depression (Chronic) Diverticulitis (Resolved) GERD (gastroesophageal reflux disease) (Chronic) Hx of ovarian cyst (Resolved) Hyperlipidemia (Chronic) Hyperparathyroidism (Chronic) Osteoarthritis (Chronic) Osteopenia (Chronic) Osteoporosis (Chronic) Small bowel obstruction (Resolved) Surgical History History of partial colectomy (Resolved) Hx laparoscopic cholecystectomy (Resolved) Hx of knee surgery (Resolved) Hx of shoulder surgery (Resolved) Family History Sister Gallstones Daughter Cancer Grandmother Diabetes mellitus Social History marital status: household members: spouse occupational status: previously employed Smoking Status: Never smoker alcohol intake: current substance use type: does not use Family History Sister Gallstones Daughter Cancer Grandmother Diabetes mellitus Social History marital status: household members: spouse occupational status: previously employed Smoking Status: Never smoker alcohol intake: current substance use type: does not use Exam Initial Vital Signs Initial Vital Signs: Vital Signs Temperature 99.1 F 11/12/18 19:00 Pulse Rate 118 H 11/12/18 19:00 Respiratory Rate 22 11/12/18 19:00 Blood Pressure 139/81 11/12/18 19:00 Pulse Oximetry 95 11/12/18 19:00 Const General: cooperative and well developed Nutritional Appearance: well nourished Orientation: alert, awake, oriented x3 and not confused [facility] Head: normocephalic and atraumatic Ears: external ears normal Nose: external nose normal and No nasal discharge Face and sinus: face symmetric and No dry mucous membranes Mouth: oral mucosae normal and moist mucous membranes Teeth and gingiva: dentition normal Eyes General: appearance normal, both eyes and all related structures Eyelids: eyelids normal Conjunctivae: conjunctivae normal Sclera: sclerae normal Pupils: PERRL EOM: EOM intact bilaterally Neck Neck: normal visual inspection, trachea midline, No lymphadenopathy, No midline deformity and No JVD Lymphatic: No lymphedema Chest Chest: normal inspection of the chest Resp Effort & Inspection: normal respiratory effort, able to speak in complete sentences, no respiratory distress and no use of accessory muscles Auscultation: clear to auscultation bilaterally, no rales, no rhonchi and no wheezes Cardio Rate: regular rate Rhythm: regular rhythm Heart Sounds: no click, no gallops, no murmurs and no rubs Pulses: normal peripheral pulses GI Inspection: non-distended Palpation: soft, no hepatosplenomegaly, No guarding, No pulsatile mass and No tender Back/Spine/Pelvis Back: No CVA tenderness Cervical Spine: cervical ROM normal and No pain with cervical ROM Thoracic/Lumbar Spine: thoracic and lumbar spine normal to inspection Skin General: no rashes or lesions noted, No jaundice and No petechiae Neuro General: alert, oriented x3, gait normal and no focal motor deficits Speech: speech normal Extrem General: full ROM, no clubbing, cyanosis or edema, no pedal edema and no calf tenderness Psych Appearance: well kempt Mental Status: mental status grossly normal Attitude: cooperative Thought Content: normal and suicidality Judgment: judgment good Course Course Course Narrative: Patient was seen on arrival by Dr. Valentin, who had sent the patient in. She was also evaluated by myself, and worked up with laboratory studies. These did show a normal white blood cell count. I did defer rectal exam to the surgeon, who examined the patient and found a necrosed hemorrhoid. This was removed in the emergency department by Dr. Valentin, and he did state a CT scan did not need to be done in this time. The patient was treated with antibiotics in the emergency department and admitted to surgical service. Orders Ordered: Discontinued Medications Acetaminophen (Tylenol) 650 mg PO Q6HR [facility] Last Admin: 11/14/18 13:36 Dose: Not Given Documented by: Admin: 11/14/18 06:15 Dose: Not Given Documented by: Admin: 11/14/18 00:27 Dose: 650 mg Documented by: Admin: 11/13/18 17:21 Dose: 650 mg Documented by: Admin: 11/13/18 13:26 Dose: 650 mg Documented by: Admin: 11/13/18 06:23 Dose: 650 mg Documented by: Admin: 11/13/18 00:21 Dose: 650 mg Documented by: MELINDA Aspirin (Aspirin Ec) 81 mg PO DAILY [facility] Last Admin: 11/13/18 12:19 Dose: Not Given Documented by: ROSI Aspirin (Aspirin Ec) 81 mg PO BEDTIME [facility] Last Admin: 11/13/18 19:55 Dose: Not Given Documented by: JACK Citalopram Hydrobromide (Celexa) 40 mg PO NOW ONE Stop: 11/12/18 22:33 Last Admin: 11/13/18 02:15 Dose: Not Given Documented by: MELINDA Citalopram Hydrobromide (Celexa) 40 mg PO BEDTIME [facility] Last Admin: 11/13/18 19:54 Dose: 40 mg Documented by: JACK Docusate Sodium (Colace) 100 mg PO BID [facility] Last Admin: 11/14/18 11:19 Dose: 100 mg Documented by: ROSI Gabapentin (Neurontin) 600 mg PO BEDTIME [facility] Last Admin: 11/13/18 02:14 Dose: Not Given Documented by: MELINDA Heparin Sodium (Porcine) (Heparin) 5,000 unit SUBCUT TID [facility] Last Admin: 11/14/18 09:16 Dose: 5,000 unit Documented by: Admin: 11/13/18 22:18 Dose: 5,000 unit Documented by: Admin: 11/13/18 17:19 Dose: 5,000 unit Documented by: Admin: 11/13/18 12:31 Dose: 5,000 unit Documented by: ROSI Sodium Chloride (Normal Saline 0.9%) 1,000 mls @ 1,000 mls/hr IV BOLUS ONE Stop: 11/12/18 20:47 Last Infusion: 11/12/18 21:04 Dose: 0 mls/hr Documented by: Admin: 11/12/18 20:04 Dose: 1,000 mls/hr Documented by: CHAS Ceftriaxone Sodium/Dextrose (Rocephin) 2 gm in 50 mls @ 100 mls/hr IV NOW ONE Stop: 11/12/18 21:32 Last Infusion: 11/12/18 22:31 Dose: 0 mls/hr Documented by: Admin: 11/12/18 22:11 Dose: 100 mls/hr Documented by: CHAS Metronidazole (Flagyl) 500 mg in 100 mls @ 100 mls/hr IV NOW ONE Stop: 11/12/18 22:02 Last Infusion: 11/12/18 23:44 Dose: 100 mls/hr Documented by: Admin: 11/12/18 22:31 Dose: 100 mls/hr Documented by: CHAS Lactated Ringer's (Lactated Ringers) 1,000 mls @ 100 mls/hr IV CONT [facility] Last Admin: 11/13/18 12:13 Dose: 100 mls/hr Documented by: Infusion: 11/13/18 10:48 Dose: 100 mls/hr Documented by: Admin: 11/13/18 00:48 Dose: 100 mls/hr Documented by: Infusion: 11/13/18 00:48 Dose: 100 mls/hr Documented by: Infusion: 11/12/18 23:44 Dose: 100 mls/hr Documented by: Admin: 11/12/18 23:15 Dose: 100 mls/hr Documented by: CHAS Ceftriaxone Sodium/Dextrose (Rocephin) 2 gm in 50 mls @ 100 mls/hr IV Q24H [facility] Last Infusion: 11/13/18 22:19 Dose: 0 mls/hr Documented by: Admin: 11/13/18 19:49 Dose: 100 mls/hr Documented by: JACK Metronidazole (Flagyl) 500 mg in 100 mls @ 100 mls/hr IV Q8H [facility] Metronidazole (Flagyl) 500 mg in 100 mls @ 100 mls/hr IV Q8H [facility] Last Admin: 11/14/18 13:44 Dose: 100 mls/hr Documented by: Infusion: 11/14/18 05:52 Dose: 0 mls/hr Documented by: Admin: 11/14/18 03:45 Dose: 100 mls/hr Documented by: Infusion: 11/13/18 22:19 Dose: 0 mls/hr Documented by: Admin: 11/13/18 20:47 Dose: 100 mls/hr Documented by: Infusion: 11/13/18 14:26 Dose: 100 mls/hr Documented by: Admin: 11/13/18 13:26 Dose: 100 mls/hr Documented by: Infusion: 11/13/18 05:45 Dose: 0 mls/hr Documented by: Admin: 11/13/18 04:42 Dose: 100 mls/hr Documented by: MELINDA Influenza Virus Vaccine (Flu Vaccine) 0.5 ml IM .ONCE ONE Stop: 11/13/18 00:36 Last Admin: 11/13/18 13:24 Dose: Not Given Documented by: ROSI Lactobacillus Acidophilus (Bacid Caplet) 1 each PO TIDWM [facility] Last Admin: 11/14/18 13:37 Dose: Not Given Documented by: Admin: 11/14/18 09:17 Dose: 1 each Documented by: Admin: 11/13/18 17:20 Dose: 1 each Documented by: Admin: 11/13/18 13:26 Dose: 1 each Documented by: Admin: 11/13/18 10:13 Dose: 1 each Documented by: ROSI Lidocaine/Epinephrine (Xylocaine 1% W/Epi) 12 ml INJ INTRA-OP ONE Stop: 11/12/18 21:45 Last Admin: 11/12/18 21:50 Dose: 12 ml Documented by: JAKE Methocarbamol (Robaxin) 750 mg PO QID [facility] Last Admin: 11/13/18 12:19 Dose: Not Given Documented by: Admin: 11/13/18 02:14 Dose: Not Given Documented by: MELINDA Ondansetron HCl (Zofran) 4 mg IV Q4HR PRN PRN Reason: Nausea And Vomiting Last Admin: 11/14/18 13:32 Dose: 4 mg Documented by: ROSI Oxycodone HCl (Percolone) 5 mg PO Q6HR PRN PRN Reason: Pain, Moderate (4-6) Last Admin: 11/12/18 23:08 Dose: 5 mg Documented by: CHAS Oxycodone HCl (Percolone) 10 mg PO Q4HR PRN PRN Reason: Pain, Severe (7-10) Last Admin: 11/13/18 00:22 Dose: 10 mg Documented by: MELINDA Oxycodone HCl (Percolone) 5 mg PO Q3HR PRN PRN Reason: Pain, Moderate (4-6) Oxycodone HCl (Percolone) 10 mg PO Q3HR PRN PRN Reason: Pain, Severe (7-10) Last Admin: 11/13/18 11:48 Dose: 10 mg Documented by: Admin: 11/13/18 04:47 Dose: 10 mg Documented by: MELINDA Polyethylene Glycol (Miralax) 17 gm PO NOW ONE Stop: 11/14/18 10:56 Last Admin: 09/18/19 11:09 Dose: 17 gm Documented by: ROSI Rosuvastatin Calcium (Crestor) 10 mg PO BEDTIME [facility] Last Admin: 11/13/18 19:54 Dose: 10 mg Documented by: Admin: 11/13/18 00:23 Dose: 10 mg Documented by: MELINDA Silver Nitrate/Potassium Nitrate (Silver Nitrate Stick) 2 each TOP NOW ONE Stop: 11/12/18 21:45 Last Admin: 11/12/18 21:51 Dose: 2 each Documented by: JAKE Tamsulosin HCl (Flomax) 0.4 mg PO DAILY [facility] Last Admin: 11/13/18 13:24 Dose: Not Given Documented by: ROSI Tamsulosin HCl (Flomax) 0.4 mg PO BEDTIME [facility] Last Admin: 11/13/18 19:54 Dose: 0.4 mg Documented by: JACK MDM - Fever Medical Records Attestation: I reviewed the patient's medical records. Lab Data Attestation: I reviewed the patient's lab results. Result diagrams: 11/13/18 04:45 11/13/18 04:45 Labs: Lab Results 11/12/18 11/12/18 11/12/18 Range/Units 19:40 19:40 19:40 WBC 8.9 (4.5-11.0) X10^3/uL RBC 4.65 (4.0-5.2) X10^6/uL Hgb 14.0 (12.0-16.0) g/dL Hct 41.3 (36-46) % MCV 89.0 (80-100) fL MCH 30.2 (26-34) PG MCHC 33.9 (30-36) % RDW 12.8 (11.6-14.8) % Plt Count 155 (150-400) X10^3/uL Neut % (Auto) 89.4 H (50-75) % Lymph % (Auto) 3.4 L (25-40) % [place] % (Auto) 6.0 (3-14) % Eos % (Auto) 0.4 L (2-4) % Baso % (Auto) 0.8 (0-2) % Neut # (Auto) 7900 H (5202-9369) /uL Lymph # (Auto) 300 L (0875-1551) /uL [place] # (Auto) 500 (0-900) /uL Eos # (Auto) 0 (0-450) /uL Baso # (Auto) 100 (0-100) /uL PT 11.3 (10.1-12.7) SECONDS INR 1.0 (0.9-1.3) APTT 30 (26.4-36.2) SECONDS Sodium (137-145) mmol/L Potassium (3.4-5.1) mmol/L Chloride (98-107) mmol/L Carbon Dioxide (22-32) mmol/L BUN (7-17) mg/dL Creatinine (0.52-1.04) mg/dL Estimated GFR (>60) mL/min BUN/Creatinine Ratio (6-22) Glucose (80-110) mg/dL Lactate (0.7-2.1) mmol/L Calcium (8.4-10.2) mg/dL Total Bilirubin (0.2-1.3) mg/dL AST (14-36) IU/L ALT (9-52) IU/L Alkaline Phosphatase (38-126) U/L Total Protein (6.3-8.2) g/dL Albumin (3.5-5.0) g/dL Globulin (1.7-4.1) g/dL Albumin/Globulin Ratio (1.0-2.8) Lipase (23-300) U/L Procalcitonin 0.91 H (<0.5) ng/mL Urine RBC (0-5/HPF) Urine WBC (0-5/HPF) Urine Bacteria (None) Ur Culture Indicated? 11/12/18 11/12/18 11/12/18 Range/Units 19:40 19:40 21:30 WBC (4.5-11.0) X10^3/uL RBC (4.0-5.2) X10^6/uL Hgb (12.0-16.0) g/dL Hct (36-46) % MCV (80-100) fL MCH (26-34) PG MCHC (30-36) % RDW (11.6-14.8) % Plt Count (150-400) X10^3/uL Neut % (Auto) (50-75) % Lymph % (Auto) (25-40) % [place] % (Auto) (3-14) % Eos % (Auto) (2-4) % Baso % (Auto) (0-2) % Neut # (Auto) (5230-0080) /uL Lymph # (Auto) (0865-3303) /uL [place] # (Auto) (0-900) /uL Eos # (Auto) (0-450) /uL Baso # (Auto) (0-100) /uL PT (10.1-12.7) SECONDS INR (0.9-1.3) APTT (26.4-36.2) SECONDS Sodium 136 L (137-145) mmol/L Potassium 4.0 (3.4-5.1) mmol/L Chloride 100 (98-107) mmol/L Carbon Dioxide 24 (22-32) mmol/L BUN 17 (7-17) mg/dL Creatinine 0.80 (0.52-1.04) mg/dL Estimated GFR > 60.0 (>60) mL/min BUN/Creatinine Ratio 21.3 (6-22) Glucose 118 H (80-110) mg/dL Lactate 1.1 (0.7-2.1) mmol/L Calcium 10.4 H (8.4-10.2) mg/dL Total Bilirubin 0.6 (0.2-1.3) mg/dL AST 35 (14-36) IU/L ALT 26 (9-52) IU/L Alkaline Phosphatase 103 (38-126) U/L Total Protein 7.7 (6.3-8.2) g/dL Albumin 4.4 (3.5-5.0) g/dL Globulin 3.3 (1.7-4.1) g/dL Albumin/Globulin Ratio 1.3 (1.0-2.8) Lipase 95 (23-300) U/L Procalcitonin (<0.5) ng/mL Urine RBC None seen (0-5/HPF) Urine WBC None seen (0-5/HPF) Urine Bacteria None seen (None) Ur Culture Indicated? Cult not indicated Urine Dip Bedside Urine Glucose Negative Bedside Urine Bilirubin - Negative Bedside Urine Ketone ++ 40 Urine Specific [place] 1.010 Bedside Urine Occult Blood +/- Bedside Urine pH 7.0 Bedside Urine Protein - Negative Bedside Urine Urobilinogen +/- 1mg Bedside Urine Nitrite - Negative Bedside Urine Leukocytes - Negative Esterase Discharge Plan Departure Patient Disposition: Admitted as Observation Clinical Impression: Postoperative fever Discharge Date/Time: 11/12/18 23:45 Admit Date/Time: 11/12/18 22:36 Admit Provider: Noel Valentin
== END 2018-11-14 15:15 | disposition home or self-care (01) | DRG 857 ==
LOC: ED 22:18 → AC 22:37 → ICU 22:53
PROVIDERS: Admitting Provider Surgery; Emergency Provider Emergency Medicine; PCP Internal Medicine; Visit Provider Surgery
DX: T81.43XA Infection following a procedure, organ and space surgical site, initial encounter (principal); I96 Gangrene, not elsewhere classified; K64.5 Perianal venous thrombosis; I95.9 Hypotension, unspecified
CPT/HCPCS: 36415; 36591; 71045; 80048; 80053; 81003; 81015; 83605; 83690; 84145; 85025; 85610; 85730; 87040; 87797; 93005; 96361; 96365; 99284; 99285; J0696; J1644; J2405

== ENCOUNTER → 2018-12-19 15:00 | Outpatient (ROUT) | payer MEDICARE, OTHER, SELFPAY ==
[2018-11-16 10:31] VITALS: BMI 29.5
[2018-12-19 15:39] LABS: Aspartate Aminotransferase 27 IU/L (14-36); BUN Creatinine Ratio 28.3 (6-22); Blood Urea Nitrogen 17 mg/dL (7-17); Calcium 10.3 mg/dL (8.4-10.2); Carbon Dioxide 28 mmol/L (22-32); Chloride 103 mmol/L (98-107); Cholesterol 137 mg/dL (140-199); Estimated Glomerular Filt Rate > 60.0 mL/min (>60); Glucose 89 mg/dL (80-110); HDL Cholesterol 62 mg/dL (40-60); HEMOLYSIS < 15 (0-50); LDL Cholesterol Calculated 59 mg/dL (<100); Potassium 4.4 mmol/L (3.4-5.1); Sodium 138 mmol/L (137-145); Triglycerides 82 mg/dL (35-150)
== END ==
PROVIDERS: PCP Internal Medicine; Visit Provider Internal Medicine
DX: E78.2 Mixed hyperlipidemia (principal); I87.2 Venous insufficiency (chronic) (peripheral)
CPT/HCPCS: 80048; 80061; 84450

== ENCOUNTER → 2019-12-02 11:26 | Outpatient (CLI) | payer MEDICARE, OTHER, SELFPAY ==
[2018-11-16 10:31] VITALS: BMI 29.5
--- NOTE | 2019-12-02 | DI.MG.S_ITS ---
BILATERAL DIGITAL SCREENING MAMMOGRAM 3D/2D WITH CAD: 12/02/2019 CLINICAL: Routine screening. Family history of breast cancer. Comparison is made to exams dated: 10/05/2018 mammogram, 10/04/2017 mammogram, and 08/11/2016 mammogram - [facility]. The tissue of both breasts is heterogeneously dense. This may lower the sensitivity of mammography. Current study was also evaluated with a Computer Aided Detection (CAD) system. There are benign calcifications in both breasts. There also are benign vascular calcifications in both breasts. No significant masses, calcifications, or other findings are seen in either breast. There has been no significant interval change. IMPRESSION: BENIGN There is no mammographic evidence of malignancy. A 1 year screening mammogram is recommended. This exam was interpreted at Station ID: [id number]. NOTE: For mammograms, a report in lay terms will be sent to the patient. Approximately 15% of breast malignancies will not be visualized mammographically. In the management of a palpable breast mass, a negative mammogram must not discourage biopsy of a clinically suspicious lesion. Electronically Signed By: Neetu alonso/kristal:12/02/2019 16:26:49 letter sent: Normal Exam ACR BI-RADS Category 2: Benign Finding(s) [id number]
== END ==
PROVIDERS: PCP Internal Medicine; Referring Provider Internal Medicine; Visit Provider Internal Medicine
DX: Z12.31 Encounter for screening mammogram for malignant neoplasm of breast (principal); Z80.3 Family history of malignant neoplasm of breast
CPT/HCPCS: 77063; 77067

== ENCOUNTER → 2020-01-16 14:39 | Outpatient (ROUT) | payer MEDICARE, OTHER, SELFPAY ==
[2018-11-16 10:31] VITALS: BMI 29.5
[2020-01-16 15:08] LABS: Aspartate Aminotransferase 35 IU/L (14-36); BUN Creatinine Ratio 21.6 (6-22); Blood Urea Nitrogen 16 mg/dL (7-17); Calcium 10.1 mg/dL (8.4-10.2); Carbon Dioxide 29 mmol/L (22-32); Chloride 102 mmol/L (98-107); Cholesterol 154 mg/dL (140-199); Estimated Glomerular Filt Rate > 60.0 mL/min (>60); Glucose 104 mg/dL (80-110); HDL Cholesterol 71 mg/dL (40-60); HEMOLYSIS < 15 (0-50); LDL Cholesterol Calculated 59 mg/dL (<100); Potassium 4.8 mmol/L (3.4-5.1); Sodium 136 mmol/L (137-145); Triglycerides 120 mg/dL (35-150)
== END ==
PROVIDERS: PCP Internal Medicine; Visit Provider Internal Medicine
DX: M89.9 Disorder of bone, unspecified (principal); E78.2 Mixed hyperlipidemia
CPT/HCPCS: 80048; 80061; 84450

== ENCOUNTER → 2020-03-19 15:29 | Outpatient (CLI) | payer MEDICARE, OTHER, SELFPAY ==
[2018-11-16 10:31] VITALS: BMI 29.5
--- NOTE | 2020-03-19 15:51 | DI.RAD.S_ITS ---
PROCEDURE: XR CHEST 2V INDICATIONS: cough TECHNIQUE: 2 views of the chest were acquired. COMPARISON: [facility], CR, XR CHEST 1V, 11/12/2018, 20:10. FINDINGS: Surgical changes and devices: None. Lungs and pleura: Lungs are clear. No pleural effusions or pneumothorax. Mediastinum: Mediastinal contours are normal. Heart size is normal. Bones and chest wall: No suspicious bony abnormalities. Soft tissues appear unremarkable. IMPRESSION: No evidence acute pulmonary process. Dictated by: Omid Lombardi M.D. on 03/19/2020 at 16:41 Approved by: Omid Lombardi M.D. on 03/19/2020 at 16:41
[2020-03-19 16:02] LABS: COVID19 -Nasal RAPID Negative (Negative)
[2020-03-19 16:27] LABS: Add Manual Diff / Slide Review NO; Basophils Absolute Auto 0 /uL (0-100); Basophils Percent Auto 0.5 % (0-2); Eosinophils Absolute Auto 200 /uL (0-450); Eosinophils Percent Auto 3.4 % (2-4); Hematocrit 38.5 % (36-46); Hemoglobin 12.8 g/dL (12.0-16.0); Lymphocytes Absolute Auto 800 /uL (1100-4500); Lymphocytes Percent Auto 13.4 % (25-40); Mean Corpuscular HGB Conc 33.3 % (30-36); Mean Corpuscular Volume 90.2 fL (80-100); Monocytes Absolute Auto 500 /uL (0-900); Monocytes Percent Auto 7.7 % (3-14); Neutrophils Absolute Auto 4400 /uL (1500-7000); Platelet Count 205 X10^3/uL (150-400); Red Blood Cell Count 4.27 X10^6/uL (4.0-5.2); Red Cell Distribution Width 12.9 % (11.6-14.8); White Blood Cell Count 5.9 X10^3/uL (4.5-11.0)
[2020-03-19 17:33] LABS: Alanine Aminotransferase 25 IU/L (<35); Albumin 4.2 g/dL (3.5-5.0); Albumin Globulin Ratio 1.3 (1.0-2.8); Alkaline Phosphatase 95 U/L (38-126); Aspartate Aminotransferase 32 IU/L (14-36); BUN Creatinine Ratio 21.4 (6-22); Bilirubin Total 0.3 mg/dL (0.2-1.3); Blood Urea Nitrogen 15 mg/dL (7-17); Calcium 10.1 mg/dL (8.4-10.2); Carbon Dioxide 29 mmol/L (22-32); Chloride 105 mmol/L (98-107); Estimated Glomerular Filt Rate > 60.0 mL/min (>60); Globulin 3.2 g/dL (1.7-4.1); Glucose 113 mg/dL (80-110); HEMOLYSIS < 15 (0-50); Sodium 136 mmol/L (137-145); Total Protein 7.4 g/dL (6.3-8.2)
[2020-03-19 17:42] LABS: NT-proBNP (BNP-Adult 18+) 281 pg/mL (<450)
== END ==
PROVIDERS: PCP Internal Medicine; Visit Provider Student in an Organized Health Care Education/Training Program
DX: J98.8 Other specified respiratory disorders (principal); R05 Cough; R06.02 Shortness of breath; R53.83 Other fatigue
CPT/HCPCS: 36415; 71046; 80053; 83880; 85025; 87635

== ENCOUNTER → 2020-12-07 11:08 | Outpatient (CLI) | payer MEDICARE, OTHER, SELFPAY ==
[2018-11-16 10:31] VITALS: BMI 29.5
--- NOTE | 2020-12-07 | DI.MG.S_ITS ---
BILATERAL DIGITAL SCREENING MAMMOGRAM 3D/2D WITH CAD: 12/07/2020 CLINICAL: Routine screening. Family history of breast cancer. Comparison is made to exams dated: 12/02/2019 mammogram, 10/05/2018 mammogram, 10/04/2017 mammogram, 08/11/2016 mammogram, and 07/08/2015 mammogram - [facility]. There are scattered fibroglandular elements in both breasts. Current study was also evaluated with a Computer Aided Detection (CAD) system. There are benign calcifications in both breasts. There also are benign vascular calcifications in both breasts. No significant masses, calcifications, or other findings are seen in either breast. There has been no significant interval change. IMPRESSION: BENIGN There is no mammographic evidence of malignancy. A 1 year screening mammogram is recommended. This exam was interpreted at Station ID: [id number]. NOTE: For mammograms, a report in lay terms will be sent to the patient. Approximately 15% of breast malignancies will not be visualized mammographically. In the management of a palpable breast mass, a negative mammogram must not discourage biopsy of a clinically suspicious lesion. Electronically Signed By: Jamie galvez/kristal:12/07/2020 12:51:32 letter sent: Normal Exam ACR BI-RADS Category 2: Benign Finding(s) [id number]
== END ==
PROVIDERS: PCP Internal Medicine; Referring Provider Internal Medicine; Visit Provider Internal Medicine
DX: Z12.31 Encounter for screening mammogram for malignant neoplasm of breast (principal); Z80.3 Family history of malignant neoplasm of breast
CPT/HCPCS: 77063; 77067

== ENCOUNTER → 2021-01-27 10:00 | Outpatient (CLI) | payer MEDICARE, OTHER, SELFPAY ==
[2018-11-16 10:31] VITALS: BMI 29.5
== END ==
PROVIDERS: PCP Internal Medicine; Referring Provider Internal Medicine; Visit Provider Internal Medicine
DX: M85.852 Other specified disorders of bone density and structure, left thigh (principal); Z78.0 Asymptomatic menopausal state; Z82.62 Family history of osteoporosis; Z87.891 Personal history of nicotine dependence
CPT/HCPCS: 77080

== ENCOUNTER 2021-07-30 11:45 | Emergency (ER) | payer MEDICARE, OTHER, SELFPAY ==
[2018-11-16 10:31] VITALS: BMI 29.5
[2021-07-30 11:50] VITALS: BP 133/78; PULSE 89; RESP 22; TEMP 37; O2SAT 96; BMI 29.9
--- NOTE | 2021-07-30 11:56 | DI.RAD.S_ITS ---
PROCEDURE: XR CHEST 2V INDICATIONS: shortness of breath TECHNIQUE: 2 views of the chest were acquired. COMPARISON: [facility], , XR CHEST 2V, 03/19/2020, 16:14. FINDINGS: Surgical changes and devices: None. Lungs and pleura: Hyperinflation and chronic emphysematous changes are seen. No focal infiltrate. No pleural effusions or pneumothorax. Mediastinum: Mediastinal contours are normal. Heart size is normal. Bones and chest wall: No suspicious bony abnormalities. Soft tissues appear unremarkable. IMPRESSION: No acute cardiopulmonary pathology. COPD. Dictated by: Antwon Rogers M.D. on 07/30/2021 at 13:09 Approved by: Antwon Rogers M.D. on 07/30/2021 at 13:10
[2021-07-30 12:36] LABS: Add Manual Diff / Slide Review NO; Basophils Absolute Auto 0 /uL (0-100); Basophils Percent Auto 0.4 % (0-2); Eosinophils Absolute Auto 100 /uL (0-450); Eosinophils Percent Auto 2.1 % (2-4); Hematocrit 33.1 % (36-46); Hemoglobin 11.2 g/dL (12.0-16.0); Lymphocytes Absolute Auto 500 /uL (1100-4500); Lymphocytes Percent Auto 8.4 % (25-40); Mean Corpuscular HGB Conc 33.7 % (30-36); Mean Corpuscular Hemoglobin 28.8 PG (26-34); Mean Corpuscular Volume 85.4 fL (80-100); Monocytes Absolute Auto 500 /uL (0-900); Monocytes Percent Auto 7.5 % (3-14); Neutrophils Absolute Auto 5300 /uL (1500-7000); Neutrophils Percent Auto 81.6 % (50-75); Platelet Count 171 X10^3/uL (150-400); Red Blood Cell Count 3.87 X10^6/uL (4.0-5.2); Red Cell Distribution Width 12.6 % (11.6-14.8); White Blood Cell Count 6.5 X10^3/uL (4.5-11.0)
[2021-07-30 12:46] LABS: Alanine Aminotransferase 27 IU/L (<35); Albumin 4.2 g/dL (3.5-5.0); Albumin Globulin Ratio 1.3 (1.0-2.8); Alkaline Phosphatase 95 U/L (38-126); Aspartate Aminotransferase 31 IU/L (14-36); BUN Creatinine Ratio 22.2 (6-22); Bilirubin Total 0.5 mg/dL (0.2-1.3); Blood Urea Nitrogen 16 mg/dL (7-17); Calcium 9.4 mg/dL (8.4-10.2); Carbon Dioxide 24 mmol/L (22-32); Chloride 104 mmol/L (98-107); Estimated Glomerular Filt Rate > 60 mL/min (>60); Globulin 3.2 g/dL (1.7-4.1); Glucose 99 mg/dL (80-110); HEMOLYSIS < 15 (0-50); Lactate (Lactic Acid) 0.9 mmol/L (0.7-2.1); Sodium 135 mmol/L (137-145); Total Protein 7.4 g/dL (6.3-8.2)
--- NOTE | 2021-07-30 13:17 | ED.GENADULT ---
HPI - General Adult General Chief complaint: Shortness of Breath/Dyspnea Stated complaint: sob coughing fever clinic thinks a chest xray Time Seen by Provider: 07/30/21 12:52 Source: patient Mode of arrival: Ambulatory History of Present Illness HPI narrative: Patient is an 85-year-old male. No prior underlying lung pathology to include COPD/asthma/emphysema. She is here for evaluation of several days of a cough which is productive, fevers, sore throat, runny nose, and generally not feeling very well. Patient states she has had pneumonia in the past. Her who is at bedside stated that he had very similar symptoms several days ago but is now improved. He has been trying [id number] medications without any improvement. She contacted her primary doctor who advised she come to the emergency department for evaluation. She denies chest pain. No abdominal pain. No change in bowel habits. No rashes. Related Data Home Medications Medication Instructions Recorded Confirmed cholecalciferol (vitamin D3) 1 spray HS #0 02/15/17 03/19/20 aspirin 81 mg tablet,delayed 81 mg PO DAILY 10/08/18 03/19/20 release calcium carbonate 500 mg calcium 500 mg PO DAILY tab 10/08/18 03/19/20 (1,250 mg) tablet (Calcium 500) citalopram 40 mg tablet 20 mg PO DAILY 10/08/18 03/19/20 famotidine 20 mg tablet 20 mg PO DAILY 10/08/18 03/19/20 tamsulosin 0.4 mg capsule 0.4 mg PO DAILY 10/08/18 03/19/20 rosuvastatin 10 mg tablet 10 mg PO DAILY 11/05/18 03/19/20 Previous Rx's Medication Instructions Recorded docusate sodium 100 mg capsule 100 mg PO BID #60 cap 11/05/18 (Colace) ibuprofen 200 mg capsule 400 mg PO Q6H PRN #90 cap 11/05/18 oxycodone 5 mg capsule 5 mg PO Q4-6H PRN #30 cap 11/05/18 levofloxacin 500 mg tablet 500 mg PO DAILY #7 tab 11/14/18 benzonatate 100 mg capsule 100 mg PO TID #20 cap 03/19/20 doxycycline hyclate 100 mg tablet 100 mg PO BID 5 Days #10 tab 07/30/21 Allergies Allergy/AdvReac Type Severity Reaction Status Date / Time clopidogrel [CLOPIDOGREL] Allergy Severe HIVES Verified 03/19/20 15:27 erythromycin base Allergy Severe HIVES Verified 03/19/20 15:27 [ERYTHROMYCIN BASE] hazelnut [HAZELNUT] Allergy Severe MOUTH Verified 03/19/20 15:27 SWELLING, ITCHING codeine [CODEINE] AdvReac Severe VERTIGO, Verified 03/19/20 15:27 NAUSEA, VOMITING hydromorphone [HYDROMORPHONE] AdvReac Severe VERTIGO, Verified 03/19/20 15:27 NAUSEA, VOMITING, FEELS LIKE ANTS ON MY SKIN morphine [MORPHINE] AdvReac Severe VERTIGO, Verified 03/19/20 15:27 NAUSEA, VOMITING ARUGULA Allergy Severe THROAT Uncoded 03/19/20 15:27 SWELLING Review of Systems Constitutional Constitutional: Reports system reviewed and no additional complaints, except as documented ENT Ears, Nose, Mouth, and Throat: Reports system reviewed and no additional complaints, except as documented Cardiovascular Cardiovascular: Reports system reviewed and no additional complaints, except as documented Respiratory Respiratory: Reports system reviewed and no additional complaints, except as documented Gastrointestinal Gastrointestinal: Reports system reviewed and no additional complaints, except as documented Integumentary/Breasts Skin/Breast: Reports system reviewed and no additional complaints, except as documented Hematologic/Lymphatic On Anticoagulants: No Patient History Medical History Depression Diverticulitis GERD (gastroesophageal reflux disease) Hx of ovarian cyst Hyperlipidemia Hyperparathyroidism Osteoarthritis Osteopenia Osteoporosis Small bowel obstruction Surgical History History of partial colectomy Hx laparoscopic cholecystectomy Hx of knee surgery Hx of shoulder surgery Family History Sister Gallstones Daughter Cancer Grandmother Diabetes mellitus Social History marital status: household members: spouse occupational status: previously employed Smoking Status: Never smoker alcohol intake: current substance use type: does not use Smoking Status: Never smoker alcohol intake frequency: 0-2 drinks per day Substance Use Type: does not use Exam Initial Vital Signs Initial Vital Signs: Vital Signs Temperature 98.6 F 07/30/21 11:50 Pulse Rate 89 07/30/21 11:50 Respiratory Rate 22 06/03/22 11:50 Blood Pressure 133/78 07/30/21 11:50 Pulse Oximetry 96 07/30/21 11:50 Const General: cooperative, healthy appearing and comfortable HENMT Head: normal to inspection Mouth: moist mucous membranes Throat: posterior oropharynx normal Resp Effort & Inspection: normal respiratory effort, not labored, no respiratory distress, no retractions and tachypneic Auscultation: rhonchi and wheezes Cardio Rate: regular rate Rhythm: regular rhythm GI Inspection: normal to inspection Neuro General: patient alert, patient awake and moves all extremities Extrem General: normal to inspection and capillary refill normal Psych Appearance: grossly normal and well kempt Course Orders Ordered: ED Orders 07/30/21 11:56 XR chest 2V Stat EKG-12 Lead Stat Measure peak expiratory flow ONCE RT Consult Eval and Treat Now 07/30/21 12:25 Complete Blood Count AUTO DIFF Stat Comprehensive Metabolic Panel Stat Lactate (Lactic Acid) Stat Vital Signs Vital signs: Vital Signs - 8 hr 07/30/21 11:50 Temperature 98.6 F Pulse Rate 89 Respiratory Rate 22 Blood Pressure 133/78 Pulse Oximetry 96 Medical Decision Making Lab Data Lab results reviewed: Yes I reviewed the patient's lab results. Result diagrams: 07/30/21 12:25 07/30/21 12:25 Labs: Lab Results 07/30/21 07/30/21 07/30/21 Range/Units 12:25 12:25 12:25 WBC 6.5 (4.5-11.0) X10^3/uL RBC 3.87 L (4.0-5.2) X10^6/uL Hgb 11.2 L (12.0-16.0) g/dL Hct 33.1 L (36-46) % MCV 85.4 (80-100) fL MCH 28.8 (26-34) PG MCHC 33.7 (30-36) % RDW 12.6 (11.6-14.8) % Plt Count 171 (150-400) X10^3/uL Neut % (Auto) 81.6 H (50-75) % Lymph % (Auto) 8.4 L (25-40) % Wilson % (Auto) 7.5 (3-14) % Eos % (Auto) 2.1 (2-4) % Baso % (Auto) 0.4 (0-2) % Neut # (Auto) 5300 (3885-9207) /uL Lymph # (Auto) 500 L (1159-1701) /uL Wilson # (Auto) 500 (0-900) /uL Eos # (Auto) 100 (0-450) /uL Baso # (Auto) 0 (0-100) /uL Sodium 135 L (137-145) mmol/L Potassium 4.0 (3.4-5.1) mmol/L Chloride 104 (98-107) mmol/L Carbon Dioxide 24 (22-32) mmol/L BUN 16 (7-17) mg/dL Creatinine 0.72 (0.52-1.04) mg/dL Estimated GFR > 60 (>60) mL/min BUN/Creatinine Ratio 22.2 H (6-22) Glucose 99 (80-110) mg/dL Lactate 0.9 (0.7-2.1) mmol/L Calcium 9.4 (8.4-10.2) mg/dL Total Bilirubin 0.5 (0.2-1.3) mg/dL AST 31 (14-36) IU/L ALT 27 (<35) IU/L Alkaline Phosphatase 95 (38-126) U/L Total Protein 7.4 (6.3-8.2) g/dL Albumin 4.2 (3.5-5.0) g/dL Globulin 3.2 (1.7-4.1) g/dL Albumin/Globulin Ratio 1.3 (1.0-2.8) Imaging Data Chest x-ray: Radiologist's Impression: [address] [id number] XRay Report Signed Patient: Bridget Hemphill MR#: [id number] : 1935 Acct:[id number] Age/Sex: 85 / F Date of Service: 07/30/21 Loc: ED Accession Number: [id number] ?? Procedure: XR chest 2V Ordering Provider: Satish Maher D.O. PROCEDURE:? XR CHEST 2V ? INDICATIONS:? shortness of breath ? TECHNIQUE:? 2 views of the chest were acquired.? ? COMPARISON:? [facility], , XR CHEST 2V, 03/19/2020, 16:14. ? FINDINGS:? ? Surgical changes and devices:? None.? ? Lungs and pleura:? Hyperinflation and chronic emphysematous changes are seen.? No focal infiltrate.? No pleural effusions or pneumothorax.? ? Mediastinum:? Mediastinal contours are normal.? Heart size is normal.? ? Bones and chest wall:? No suspicious bony abnormalities.? Soft tissues appear unremarkable.? ? IMPRESSION:? No acute cardiopulmonary pathology. COPD.? ? Dictated by: Antwon Rogers M.D. on 07/30/2021 at 13:09 ? ? Approved by: Antwon Rogers M.D. on 07/30/2021 at 13:10? MDM Narrative Medical decision making narrative: No leukocytosis and no fever here although she did have a fever at home. She has also has a productive cough. Has coarse breath sounds specifically on the right on exam. Chest x-ray shows no signs of pneumonia. Despite the chest x-ray in the labs given her age and her physical exam findings I will treat her as a pneumonia. We also discussed other [id number]-luqqwpa things she could try for her cough another symptoms. Will discharge home with antibiotics she was given strict return precautions. She expressed understanding and agreement. Discharge Plan Departure Patient Disposition: Home Clinical Impression: Pneumonia Instructions: Cough (Alternative Therapy), Pneumonia-Adult Activity Restrictions/Additional Instructions: Continue all of your medications as directed and start taking the antibiotics as directed. Contact your primary doctor for a follow-up. Return to the emergency department for any new or worsening symptoms. Prescriptions: New doxycycline hyclate 100 mg tablet 100 mg PO BID 5 Days Qty: 10 0RF No Action benzonatate 100 mg capsule 100 mg PO TID Qty: 20 0RF cholecalciferol (vitamin D3) 1,000 unit/spray spray,suspension 1 spray HS Qty: 0 0RF aspirin 81 mg tablet,delayed release (DR/EC) 81 mg PO DAILY 0RF calcium carbonate [Calcium 500] 500 mg calcium (1,250 mg) tablet 500 mg PO DAILY 0RF citalopram 40 mg tablet 20 mg PO DAILY 0RF famotidine 20 mg tablet 20 mg PO DAILY 0RF tamsulosin 0.4 mg capsule 0.4 mg PO DAILY 0RF rosuvastatin 10 mg Tablet 10 mg PO DAILY 0RF oxycodone 5 mg capsule 5 mg PO Q4-6H PRN (Reason: pain) Qty: 30 0RF Label Comments: Has not taken since surgery ibuprofen 200 mg capsule 400 mg PO Q6H PRN (Reason: pain) Qty: 90 0RF docusate sodium [Colace] 100 mg capsule 100 mg PO BID Qty: 60 0RF levofloxacin 500 mg tablet 500 mg PO DAILY Qty: 7 0RF Referrals: Juan Neil MD [Primary Care Provider] -
[2021-07-30 13:58] VITALS: BP 146/78; PULSE 77; RESP 22; O2SAT 98
== END 2021-07-30 13:59 | disposition home or self-care (01) ==
PROVIDERS: Emergency Provider Emergency Medicine; PCP Internal Medicine
DX: J18.9 Pneumonia, unspecified organism (principal)
CPT/HCPCS: 36415; 71046; 80053; 83605; 85025; 99283

== ENCOUNTER → 2021-11-10 14:52 | Outpatient (CLI) | payer MEDICARE, OTHER, SELFPAY ==
[2018-11-16 10:31] VITALS: BMI 29.5
[2021-11-10 18:22] LABS: Alanine Aminotransferase 16 IU/L (<35); Albumin Globulin Ratio 1.2 (1.0-2.8); Alkaline Phosphatase 85 U/L (38-126); Aspartate Aminotransferase 25 IU/L (14-36); BUN Creatinine Ratio 21.7 (6-22); Bilirubin Total 0.2 mg/dL (0.2-1.3); Blood Urea Nitrogen 20 mg/dL (7-17); Calcium 9.6 mg/dL (8.4-10.2); Carbon Dioxide 25 mmol/L (22-32); Chloride 105 mmol/L (98-107); Estimated Glomerular Filt Rate > 60 mL/min (>60); Globulin 3.4 g/dL (1.7-4.1); Glucose 91 mg/dL (80-110); HEMOLYSIS < 15 (0-50); Potassium 4.1 mmol/L (3.4-5.1); Sodium 142 mmol/L (137-145); Total Protein 7.4 g/dL (6.3-8.2)
== END ==
PROVIDERS: PCP Internal Medicine; Referring Provider Internal Medicine; Visit Provider Internal Medicine
DX: M85.89 Other specified disorders of bone density and structure, multiple sites (principal)
CPT/HCPCS: 36415; 80053

== ENCOUNTER → 2021-12-22 08:10 | Outpatient (CLI) | payer MEDICARE, OTHER, SELFPAY ==
[2018-11-16 10:31] VITALS: BMI 29.5
--- NOTE | 2021-12-22 | DI.MG.S_ITS ---
BILATERAL DIGITAL SCREENING MAMMOGRAM 3D/2D WITH CAD: 12/22/2021 CLINICAL: Routine screening. Family history of breast cancer. Comparison is made to exams dated: 12/07/2020 mammogram, 12/02/2019 mammogram, and 10/05/2018 mammogram - [facility]. There are scattered areas of fibroglandular density in both breasts (category b / 25%-50% glandular tissue). Current study was also evaluated with a Computer Aided Detection (CAD) system. There are benign calcifications in both breasts. There also are benign vascular calcifications in both breasts. No significant masses, calcifications, or other findings are seen in either breast. There has been no significant interval change. IMPRESSION: BENIGN There is no mammographic evidence of malignancy. A 1 year screening mammogram is recommended. This exam was interpreted at Station ID: [id number]. NOTE: For mammograms, a report in lay terms will be sent to the patient. Approximately 15% of breast malignancies will not be visualized mammographically. In the management of a palpable breast mass, a negative mammogram must not discourage biopsy of a clinically suspicious lesion. Electronically Signed By: Neetu alonso/kristal:12/22/2021 10:12:11 letter sent: Normal Exam ACR BI-RADS Category 2: Benign Finding(s) 3342F
== END ==
PROVIDERS: PCP Internal Medicine; Referring Provider Internal Medicine; Visit Provider Internal Medicine
DX: Z12.31 Encounter for screening mammogram for malignant neoplasm of breast (principal); Z80.3 Family history of malignant neoplasm of breast
CPT/HCPCS: 77063; 77067

== ENCOUNTER → 2022-06-23 14:26 | Outpatient (CLI) | payer MEDICARE, OTHER, SELFPAY ==
[2018-11-16 10:31] VITALS: BMI 29.5
[2022-06-23 14:52] LABS: Hematocrit 35.3 % (36-46); Hemoglobin 11.6 g/dL (12.0-16.0); Mean Corpuscular HGB Conc 32.7 % (30-36); Mean Corpuscular Hemoglobin 27.6 PG (26-34); Mean Corpuscular Volume 84.3 fL (80-100); Platelet Count 246 X10^3/uL (150-400); Red Blood Cell Count 4.19 X10^6/uL (4.0-5.2); Red Cell Distribution Width 15.2 % (11.6-14.8); White Blood Cell Count 7.1 X10^3/uL (4.5-11.0)
[2022-06-23 15:29] LABS: Alanine Aminotransferase 17 IU/L (<35); Albumin 4.1 g/dL (3.5-5.0); Albumin Globulin Ratio 1.5 (1.0-2.8); Alkaline Phosphatase 78 U/L (38-126); Aspartate Aminotransferase 22 IU/L (14-36); BUN Creatinine Ratio 22.6 (6-22); Bilirubin Total 0.3 mg/dL (0.2-1.3); Blood Urea Nitrogen 19 mg/dL (7-17); Calcium 9.7 mg/dL (8.4-10.2); Carbon Dioxide 24 mmol/L (22-32); Chloride 105 mmol/L (98-107); Cholesterol 214 mg/dL (140-199); Estimated Glomerular Filt Rate > 60 mL/min (>60); Globulin 2.7 g/dL (1.7-4.1); Glucose 115 mg/dL (80-110); HDL Cholesterol 70 mg/dL (40-60); HEMOLYSIS < 15 (0-50); LDL Cholesterol Calculated 112 mg/dL (<100); Potassium 4.3 mmol/L (3.4-5.1); Sodium 137 mmol/L (137-145); Total Protein 6.8 g/dL (6.3-8.2); Triglycerides 162 mg/dL (35-150)
[2022-06-23 15:57] LABS: TSH w/ Reflex to FT4 1.74 uIU/mL (0.47-4.68)
== END ==
PROVIDERS: PCP Internal Medicine; Referring Provider Internal Medicine; Visit Provider Internal Medicine
DX: E78.2 Mixed hyperlipidemia (principal); M15.9 Polyosteoarthritis, unspecified; M85.80 Other specified disorders of bone density and structure, unspecified site
CPT/HCPCS: 36415; 80053; 80061; 84443; 85027

== ENCOUNTER → 2022-12-13 11:51 | Outpatient (CLI) | payer MEDICARE, OTHER, SELFPAY ==
[2018-11-16 10:31] VITALS: BMI 29.5
--- NOTE | 2022-12-13 | DI.MG.S_ITS ---
BILATERAL DIGITAL SCREENING MAMMOGRAM 3D/2D WITH CAD: 12/13/2022 CLINICAL: Routine screening. Family history of breast cancer. Comparison is made to exams dated: 12/22/2021 mammogram, 12/07/2020 mammogram, and 12/02/2019 mammogram - [facility]. There are scattered areas of fibroglandular density in both breasts (category b / 25%-50% glandular tissue). Current study was also evaluated with a Computer Aided Detection (CAD) system. There are benign calcifications in both breasts. There also are benign vascular calcifications in both breasts. Additionally, there are benign post operative findings in both breasts. No significant masses, calcifications, or other findings are seen in either breast. There has been no significant interval change. IMPRESSION: BENIGN There is no mammographic evidence of malignancy. A 1 year screening mammogram is recommended. This exam was interpreted at Station ID: [id number]. NOTE: For mammograms, a report in lay terms will be sent to the patient. Approximately 15% of breast malignancies will not be visualized mammographically. In the management of a palpable breast mass, a negative mammogram must not discourage biopsy of a clinically suspicious lesion. Electronically Signed By: Neetu alonso/kristal:12/13/2022 16:36:28 letter sent: Normal Exam ACR BI-RADS Category 2: Benign Finding(s) 3342F
== END ==
PROVIDERS: PCP Internal Medicine; Referring Provider Internal Medicine; Visit Provider Internal Medicine
DX: Z12.31 Encounter for screening mammogram for malignant neoplasm of breast (principal); Z80.3 Family history of malignant neoplasm of breast
CPT/HCPCS: 77063; 77067

== ENCOUNTER 2023-01-25 10:58 | Emergency (ER) | payer MEDICARE, OTHER, SELFPAY ==
[2018-11-16 10:31] VITALS: BMI 29.5
[2023-01-25 11:06] VITALS: BP 171/77; PULSE 76; RESP 20; TEMP 36.4; O2SAT 98; BMI 29.9
--- NOTE | 2023-01-25 11:11 | DI.RAD.S_ITS ---
PROCEDURE: XR RIBS RT MIN 3V W CXR 1V INDICATIONS: fall/rib pain TECHNIQUE: 2 views of the left ribs were acquired, along with a single view chest. COMPARISON: None. FINDINGS: Surgical changes and devices: None. Bones and chest wall: No fractures or dislocations. No suspicious bony lesions. Overlying soft tissues appear unremarkable. Lungs and pleura: No pleural effusions or pneumothorax. Lungs appear clear. Mediastinum: Mediastinal contours appear normal. Heart size is normal. IMPRESSION: No displaced rib fracture or pneumothorax. Dictated by: Neetu Stanley M.D. on 01/25/2023 at 11:54 Approved by: Neetu Stanley M.D. on 01/25/2023 at 11:54
--- NOTE | 2023-01-25 11:45 | ED.FALL ---
HPI - Fall General Chief Complaint: Fall Stated Complaint: fall and thinks she fractured her rib Time Seen by Provider: 01/25/23 11:40 Source: patient Mode of arrival: Wheelchair History of Present Illness HPI Narrative: 87-year-old female presents for right-sided chest wall pain after a trip and fall earlier this morning. Patient tripped in her bathroom and struck the right side of her chest wall on the toilet. She denies hitting her head, denies loss of consciousness, denies use of blood thinners. She is concerned she may have broken her ribs. Pain with inspiration. Related Data Previous Rx's Medication Instructions Recorded rosuvastatin 10 mg tablet 10 mg PO DAILY #90 tabs 01/27/22 citalopram 40 mg tablet 40 mg PO DAILY #90 tabs 06/07/22 omeprazole 20 mg capsule,delayed 20 mg PO DAILY #90 caps 08/11/22 release Allergies Allergy/AdvReac Type Severity Reaction Status Date / Time clopidogrel [CLOPIDOGREL] Allergy Severe HIVES Verified 06/23/22 09:48 erythromycin base Allergy Severe HIVES Verified 06/23/22 09:48 [ERYTHROMYCIN BASE] hazelnut [HAZELNUT] Allergy Severe MOUTH Verified 06/23/22 09:48 SWELLING, ITCHING codeine [CODEINE] AdvReac Severe VERTIGO, Verified 06/23/22 09:48 NAUSEA, VOMITING hydromorphone [HYDROMORPHONE] AdvReac Severe VERTIGO, Verified 06/23/22 09:48 NAUSEA, VOMITING, FEELS LIKE ANTS ON MY SKIN morphine [MORPHINE] AdvReac Severe VERTIGO, Verified 06/23/22 09:48 NAUSEA, VOMITING ARUGULA Allergy Severe THROAT Uncoded 06/23/22 09:48 SWELLING Review of Systems Review of Systems Narrative: Negative except as noted above Patient History Medical History (Updated 01/25/23 @ 12:06 by Christen Martinez MD) Carpal tunnel syndrome Whooping cough Mumps Measles Chicken pox Cataracts, bilateral Fibroids Hemorrhoid Diverticular disease Splenic artery aneurysm AAA (abdominal aortic aneurysm) Obesity Do not resuscitate Constipation, slow transit Primary osteoarthritis involving multiple joints GERD without esophagitis Mixed hyperlipidemia Hx of ovarian cyst Small bowel obstruction Hyperparathyroidism GERD (gastroesophageal reflux disease) Diverticulitis Osteoporosis Osteoarthritis Hyperlipidemia Osteopenia Depression Surgical History Anesthesia History of removal of ovarian cyst (~1958) Hx laparoscopic cholecystectomy (~2019) Hx of knee surgery (~2015) Hx of shoulder surgery (~1955) History of partial colectomy (~2011) Family History Sister Gallstones Daughter Cancer Grandmother Diabetes mellitus Cancer Father Alcoholism Mother Pneumonia Brother AIDS Grandfather Respiratory failure Social History marital status: household members: spouse occupational status: previously employed Smoking Status: Never smoker alcohol intake: current substance use type: does not use Smoking Status: Never smoker alcohol intake frequency: holidays/special occasions only Substance Use Type: does not use Exam Initial Vital Signs Initial Vital Signs: Vital Signs Temperature 97.6 F 01/25/23 11:06 Pulse Rate 76 01/25/23 11:06 Respiratory Rate 20 01/25/23 11:06 Blood Pressure 171/77 H 01/25/23 11:06 Pulse Oximetry 98 01/25/23 11:06 Oxygen Delivery Method Room Air 01/25/23 11:06 Const: Awake, alert, no acute distress, nontoxic appearing Cardiac: regular rate, regular rhythm Chest: no crepitus, no bruising, tenderness to deep palpation R chest wall RESP: unlabored, clear bilaterally, no wheezing GI: Atraumatic, soft, nontender, nondistended, no rebound, no guarding MSK: Atraumatic, full range of motion, pulses equal Skin: Warm, Dry, intact, no rashes Neuro: AO x3, CN II-XII grossly intact, moves all extremities Psych: affect normal, mood normal, not suicidal, not homicidal Course Course Course Narrative: Well-appearing patient with rib pain after a fall. No crepitus, patient declined pain medications in the emergency department. Chest x-ray shows no obvious fractures. Patient was informed of her imaging results, recommended Tylenol and Motrin as needed for pain. Recommended that patient continue to take deep breaths in order to avoid atelectasis which can lead to pneumonia. ED return precautions discussed at bedside. Patient expressed understanding of the plan and is in agreement at this time. All questions answered at the time of discharge. Orders Ordered: Discontinued Medications Lidocaine (Lidocaine Patch 1 Each Adh..Patch) 1 each TOP NOW ONE Stop: 01/25/23 12:05 Last Admin: 01/25/23 12:09 Dose: 1 each Documented By: GALE Vital Signs Vital signs: Vital Signs - 8 hr 01/25/23 11:06 Temperature 97.6 F Pulse Rate 76 Respiratory Rate 20 Blood Pressure 171/77 H Pulse Oximetry 98 Oxygen Delivery Method Room Air MDM - Fall Differential Diagnosis Differential diagnosis: Likely dislocation of shoulder region, compression fracture and other (rib fracture) Discharge Plan Departure Patient Disposition: Home Clinical Impression: Pain in rib Instructions: DI for Rib Contusion Prescriptions: No Action rosuvastatin 10 mg tablet 10 mg PO DAILY Qty: 90 3RF citalopram 40 mg tablet 40 mg PO DAILY Qty: 90 3RF omeprazole 20 mg capsule,delayed release(DR/EC) 20 mg PO DAILY Qty: 90 3RF Referrals: Juan Neil MD [Primary Care Provider] - Stand Alone Forms: Patient Portal/API
[2023-01-25] MEDS: LIDOCAINE PATCH 1 EACH ADH..PATCH TOP (12:09)
[2023-01-25 12:12] VITALS: BP 169/79; PULSE 70; RESP 16; O2SAT 99
== END 2023-01-25 12:12 | disposition home or self-care (01) ==
PROVIDERS: Emergency Provider Emergency Medicine; PCP Internal Medicine
DX: R07.81 Pleurodynia (principal)
CPT/HCPCS: 71101; 99283

== ENCOUNTER → 2023-01-30 11:25 | Outpatient (CLI) | payer MEDICARE, OTHER, SELFPAY ==
[2018-11-16 10:31] VITALS: BMI 29.5
--- NOTE | 2023-01-30 11:27 | DI.RAD.S_ITS ---
Bone Density Report Name: LUIS ALBERTO LOPEZ Age: 87 Sex: Female Ethnicity: White Date of : 1935 Indication: osteopenia; monitoring treatment; Referring Provider: JESUS ARIAS Study: Bone densitometry was performed. Exam Date: January 30, 2023 Accession number: [id number] Bone Density: Region BMD T-score Z-score Classification AP Spine(L1-L4) 0.846 -1.8 1.0 Osteopenia Femoral Neck (Left) 0.649 -1.8 0.7 Osteopenia Total Hip (Left) 0.801 -1.2 1.2 Osteopenia Femoral Neck (Right) 0.690 -1.4 1.1 Osteopenia Total Hip (Right) 0.822 -1.0 1.4 Normal Total Hip Mean 0.811 -1.1 1.3 Osteopenia World Health Organization criteria for BMD impression classify patients as: Normal (T-score at or above -1.0), Osteopenia (T-score between -1.0 and -2.5), or Osteoporosis (T-score at or below -2.5). 10-year Fracture Risk: FRAX not reported because: Treated for osteoporosis Previous Exams: -- Region Exam Age BMD T-score BMD Change BMD Change Date g/cm2 vs Baseline vs Previous -- AP Spine (L1-L4) 01/30/2023 87 0.846 -1.8 -0.014 (-1.7%)# -0.033 (-3.8%)# 01/27/2021 85 0.879 -1.5 0.019 (2.2%) 0.049 (5.8%)* 11/01/2017 82 0.830 -2.0 -0.030 (-3.5%)* -0.049 (-5.6%)* 03/04/2011 75 0.879 -1.5 0.019 (2.2%) -0.033 (-3.6%)* 10/09/2006 70 0.912 -1.2 0.052 (6.0%)* 0.052 (6.0%)* 03/02/2004 68 0.860 -1.7 Total Hip(Left) 01/30/2023 87 0.801 -1.2 -0.150 (-15.7%)# -0.043 (-5.1%)# 01/27/2021 85 0.844 -0.8 -0.106 (-11.2%)* 0.024 (2.9%) 11/01/2017 82 0.820 -1.0 -0.130 (-13.7%)* -0.054 (-6.2%)* 03/04/2011 75 0.874 -0.6 -0.076 (-8.0%)* -0.084 (-8.8%)* 10/09/2006 70 0.958 0.1 0.008 (0.8%) 0.008 (0.8%) 03/02/2004 68 0.950 0.1 Total Hip(Right) 01/30/2023 87 0.822 -1.0 -0.116 (-12.4%)# -0.011 (-1.3%)# 01/27/2021 85 0.832 -0.9 -0.106 (-11.3%)* 0.026 (3.2%) 11/01/2017 82 0.806 -1.1 -0.132 (-14.0%)* -0.095 (-10.6%)* 03/04/2011 75 0.902 -0.3 -0.036 (-3.9%)* -0.037 (-3.9%)* 10/09/2006 70 0.938 0.0 0.000 (0.1%) 0.000 (0.1%) 03/02/2004 68 0.938 0.0 -- *Denotes significance at 95% confidence level, LSC for AP Spine = 0.022 g/cm2, LSC for Total Hip = 0.027 g/cm2 # Denotes dissimilar scan types or analysis methods Impression: The patient has low bone mass, based on the Total Spine T-score. No significant bone loss was observed. Discussion: PATIENT UNDER TREATMENT WITH NO SIGNIFICANT BMD LOSS SINCE LAST EXAM. In an untreated patient, BMD typically declines with age. A lack of decline or gain is usually a sign that treatment is efficacious and fracture risk is reduced. It is important to ask patients whether they are taking their medications and to encourage continued and appropriate compliance with their osteoporosis therapies to reduce fracture risk. It is also important to review their risk factors and encourage appropriate calcium and vitamin D intakes, exercise, fall prevention and other lifestyle measures. Follow-Up: Consider a repeat BMD and Vertebral Fracture Assessment (VFA) exam in 2 years or sooner if medically necessary, to reassess this patient's status. Reported by: BRYN VELA M.D. on 01/30/2023 12:06:00 PM.
== END ==
PROVIDERS: PCP Internal Medicine; Referring Provider Internal Medicine; Visit Provider Internal Medicine
DX: M85.88 Other specified disorders of bone density and structure, other site (principal); Z78.0 Asymptomatic menopausal state; Z79.83 Long term (current) use of bisphosphonates
CPT/HCPCS: 77080

== ENCOUNTER 2023-06-17 21:56 | Emergency (ER) | payer MEDICARE, OTHER, SELFPAY ==
[2018-11-16 10:31] VITALS: BMI 29.5
[2023-06-17] VITALS (7 sets, daily range): BP systolic 156–176; BP diastolic 72–80; PULSE 62–86; RESP 18; TEMP 36.4; O2SAT 95–100; BMI 29.9
--- NOTE | 2023-06-17 22:10 | DI.RAD.S_ITS ---
PROCEDURE: XR CHEST 1V INDICATIONS: fall, hit head, +LOC TECHNIQUE: One view of the chest was acquired. COMPARISON: [facility], CR, XR CHEST 2V, 07/30/2021, 12:19. FINDINGS: Surgical changes and devices: None. Lungs and pleura: Lungs are clear. No pleural effusions or pneumothorax. And chronic interstitial changes Mediastinum: Mediastinal contours appear normal. Heart size is normal. Atherosclerotic vascular calcification noted in the aortic arch. Bones and chest wall: No suspicious bony lesions. Overlying soft tissues appear unremarkable. IMPRESSION: No acute cardiopulmonary findings Approved by: Silvestre Cunningham M.D. on 06/17/2023 at 22:20
--- NOTE | 2023-06-17 22:11 | ED.FALL ---
HPI - Fall General Chief Complaint: Fall Stated Complaint: AMS-tripped and fell Time Seen by Provider: 06/17/23 22:01 Source: patient and EMS Mode of arrival: EMS History of Present Illness HPI Narrative: 87-year-old female with history of GERD, dyslipidemia and depression. Patient is not on any anticoagulation. She states she was having her weekly date night with her she had a bottle of cider followed by 2 cans of cider. She states she seems much more intoxicated than she would expect. She does not recall falling but reportedly had a witnessed fall and hit her head. She has bruising under her left eye. She states she thinks something else may have happened she feels like her symptoms are much stronger than what they should be given her alcohol intake. Patient states she was feeling different even before she fell. She does not recall if she fell or passed out. She does not recall the event. She denies any pain. Denies headache or neck pain, denies any chest pain or shortness of breath. Denies any back or hip pain. No numbness tingling or weakness of her extremities. She had a glucose of 83 in the field with EMS. She does appear intoxicated. She states she takes citalopram, medication for reflux and a statin. She does not take any aspirin or thinners. States she has had prior cholecystectomy colon resection for recurrent diverticulitis, appendectomy, no tobacco, states has alcohol proximally weekly, no recreational drug use. Dr. Neil is her primary care she is able to provide all of this history. Related Data Previous Rx's Medication Instructions Recorded omeprazole 20 mg capsule,delayed 20 mg PO DAILY #90 caps 08/11/22 release rosuvastatin 10 mg tablet 10 mg PO DAILY #90 tabs 04/20/23 citalopram 40 mg tablet 40 mg PO DAILY #90 tabs 06/05/23 Allergies Allergy/AdvReac Type Severity Reaction Status Date / Time clopidogrel [CLOPIDOGREL] Allergy Severe HIVES Verified 06/17/23 22:05 erythromycin base Allergy Severe HIVES Verified 06/17/23 22:05 [ERYTHROMYCIN BASE] hazelnut [HAZELNUT] Allergy Severe MOUTH Verified 06/17/23 22:05 SWELLING, ITCHING codeine [CODEINE] AdvReac Severe VERTIGO, Verified 06/17/23 22:05 NAUSEA, VOMITING hydromorphone [HYDROMORPHONE] AdvReac Severe VERTIGO, Verified 06/17/23 22:05 NAUSEA, VOMITING, FEELS LIKE ANTS ON MY SKIN morphine [MORPHINE] AdvReac Severe VERTIGO, Verified 06/17/23 22:05 NAUSEA, VOMITING ARUGULA Allergy Severe THROAT Uncoded 06/17/23 22:05 SWELLING Review of Systems Review of Systems ROS Unobtainable: All systems reviewed & are unremarkable except as noted in HPI and below Patient History Medical History Carpal tunnel syndrome Whooping cough Mumps Measles Chicken pox Cataracts, bilateral Fibroids Hemorrhoid Diverticular disease Splenic artery aneurysm AAA (abdominal aortic aneurysm) Obesity Do not resuscitate Constipation, slow transit Primary osteoarthritis involving multiple joints GERD without esophagitis Mixed hyperlipidemia Hx of ovarian cyst Small bowel obstruction Hyperparathyroidism GERD (gastroesophageal reflux disease) Diverticulitis Osteoporosis Osteoarthritis Hyperlipidemia Osteopenia Depression Surgical History Anesthesia History of removal of ovarian cyst (~1958) Hx laparoscopic cholecystectomy (~2018) Hx of knee surgery (~2016) Hx of shoulder surgery (~1955) History of partial colectomy (~2011) Family History Sister Gallstones Daughter Cancer Grandmother Diabetes mellitus Cancer Father Alcoholism Mother Pneumonia Brother AIDS Grandfather Respiratory failure Social History marital status: household members: spouse occupational status: previously employed Smoking Status: Never smoker alcohol intake: current substance use type: does not use Smoking Status: Never smoker alcohol intake frequency: holidays/special occasions only Substance Use Type: does not use Exam Narrative Exam Narrative: GEN: well nourished, well appearing female, alert and oriented x 3, patient appears to be in mild distress. Patient does appear little intoxicated she has slight word slurring but is able to give history. There is an odor of alcohol. HEENT: Atraumatic, pupils are equal round reactive to light, extraocular movements are intact, patient does have left periorbital ecchymosis, no bony tenderness, nares are clear, TMs are clear with no fluid, there is no conjunctival pallor. Throat is clear without any exudates, erythema, tonsillar enlargement or uvular deviation, no facial droop HEART: Regular rate and rhythm without murmur, clicks, rubs. No carotid bruits, pulses are equal in upper and lower extremities LUNGS:Lungs clear to auscultation, no wheezes, rales, crackles, chest moves symmetrically ABD:bowel sounds normal, soft, non-tender, no guarding, rebound, rigidity, no masses noted, no hepatosplenomegaly :No CVA tenderness MSCL: Non-tender, no muscle atrophy, muscles strength 5/5 upper and lower extremities, full range of motion NEURO:CN 2-12 intact, sensation normal, patient has some mild slurring but no aphasia. SKIN: Besides periorbital ecchymosis on the left. No other ecchymosis or skin changes no abrasions appreciated. Initial Vital Signs Initial Vital Signs: Vital Signs Pulse Rate 65 06/17/23 21:59 Blood Pressure 174/72 H 06/17/23 21:59 Pulse Oximetry 96 06/17/23 21:[address] [address] Head Rule Age <16 years old: No Patient on blood thinners: No Seizure after injury: No Exclusion: Patient NOT Excluded, Proceed to next steps GCS < 15 at 2 hr post trauma: No Suspected open or depressed skull fracture: No Any sign of basilar skull fracture (hemotympanum, raccoon eyes, Neumann's sign, CSF sugey-/rhinorrhea): Yes (left periorbital ecchymosis) Age greater or equal to 65 years: Yes Retrograde amnesia to the event greater or equal to 30 min: No Dangerous Mechanism (pedestrian vs. mv, occupant ejected from mv, fall from >3 ft or > 5 stairs): No GCS Shiv coma scale eye opening: Spontaneous Shiv coma scale verbal response: Orientated (But does appear intoxicated) Shiv coma scale motor response: Obey commands Shiv coma scale total score: 15 Nexus Score for C-Spine Focal Neurologic deficit present: No Midline spinal tenderness present: No Altered level of conciousness present: Yes Intoxication present: Yes Distracting Injury Present: No Nexus Criteria for C-spine: 2 Course Orders Ordered: Discontinued Medications Sodium Chloride (Normal Saline 0.9%) 1,000 mls @ 150 mls/hr IV CONT SAMEER Last Infusion: 06/17/23 23:00 Dose: Infused Documented By: Admin: 06/17/23 22:24 Dose: 150 mls/hr Documented By: WING Ondansetron HCl (Ondansetron 4 Mg/2 Ml Inj) 4 mg IV NOW ONE Stop: 06/17/23 22:16 Last Admin: 06/17/23 22:23 Dose: 4 mg Documented By: WING Vital Signs Vital signs: Vital Signs - 8 hr 06/17/23 22:37 06/17/23 23:00 06/17/23 23:30 Pulse Rate 63 62 63 Respiratory Rate Blood Pressure Pulse Oximetry 95 96 100 Oxygen Delivery Method 06/17/23 23:51 06/17/23 23:51 06/18/23 00:00 Pulse Rate 71 65 Respiratory Rate 16 Blood Pressure 176/74 H Pulse Oximetry 98 98 Oxygen Delivery Method Room Air MDM - Fall Lab Data 06/17/23 22:11 06/17/23 22:11 Labs: Lab Results 06/17/23 06/17/23 Range/Units 22:11 22:15 WBC 7.1 (4.5-11.0) X10^3/uL RBC 4.28 (4.0-5.2) X10^6/uL Hgb 11.3 L (12.0-16.0) g/dL Hct 34.7 L (36-46) % MCV 81.1 (80-100) fL MCH 26.4 (26-34) PG MCHC 32.6 (30-36) % RDW 15.0 H (11.6-14.8) % Plt Count 213 (150-400) X10^3/uL Neut % (Auto) 58.5 (50-75) % Lymph % (Auto) 31.9 (25-40) % Shannon % (Auto) 5.8 (3-14) % Eos % (Auto) 2.9 (2-4) % Baso % (Auto) 0.9 (0-2) % Neut # (Auto) 4100 (7714-0730) /uL Lymph # (Auto) 2300 (7610-5009) /uL Shannon # (Auto) 400 (0-900) /uL Eos # (Auto) 200 (0-450) /uL Baso # (Auto) 100 (0-100) /uL PT 10.7 (9.4-12.5) SECONDS INR 0.9 (0.9-1.3) APTT 31 (25.1-36.5) SECONDS Sodium 139 (137-145) mmol/L Potassium 3.8 (3.4-5.1) mmol/L Chloride 109 H (98-107) mmol/L Carbon Dioxide 21 L (22-32) mmol/L BUN 24 H (7-17) mg/dL Creatinine 0.62 (0.52-1.04) mg/dL Estimated GFR > 60 (>60) mL/min BUN/Creatinine Ratio 38.7 H (6-22) Glucose 97 (80-110) mg/dL Calcium 10.2 (8.4-10.2) mg/dL Total Bilirubin 0.4 (0.2-1.3) mg/dL AST 25 (14-36) IU/L ALT 15 (<35) IU/L Alkaline Phosphatase 81 (38-126) U/L Total Creatine Kinase 63 (30-135) U/L Troponin I < 0.012 (0.01-0.034) ng/mL Total Protein 7.3 (6.3-8.2) g/dL Albumin 4.3 (3.5-5.0) g/dL Globulin 3.0 (1.7-4.1) g/dL Albumin/Globulin Ratio 1.4 (1.0-2.8) Lipase 160 (23-300) U/L U Opiates 300ng/mL cut Negative (Negative) Ur Oxycodone Screen Negative (Negative) Urine Methadone Screen Negative (Negative) Ur Barbiturates Screen Negative (Negative) U Tricyclic Antidepress Negative (Negative) Ur Phencyclidine Scrn Negative (Negative) Ur Amphetamines Screen Negative (Negative) U Methamphetamines Scrn Negative (Negative) Ur MDMA Scrn (Ecstasy) Negative (Negative) U Benzodiazepines Scrn Negative (Negative) Urine Cocaine Screen Negative (Negative) U Marijuana (THC) Screen Negative (Negative) Urine pH TNP Urine Specific [place] TNP Ethyl Alcohol 150 H ( - 10) mg/dL Ur Creatinine TNP Urine Dip Bedside Urine Glucose Negative Bedside Urine Bilirubin - Negative Bedside Urine Ketone - Negative Urine Specific [place] 1.020 Bedside Urine Occult Blood - Negative Bedside Urine pH 5.5 Bedside Urine Protein - Negative Bedside Urine Urobilinogen - Negative Bedside Urine Nitrite - Negative Bedside Urine Leukocytes - Negative Esterase Imaging Data CT scan - head: Radiologist's Impression: Close Face CT (Signed) Cunningham,Silvestre - 06/17/23 Pelvis X-Ray (Signed) Cunningham,Silvestre - 06/17/[address] (Signed) Cunningham,Silvestre - 06/17/23 Chest X-Ray (Signed) Cunningham,Silvestre - 06/17/[address] (Signed) Cunningham,Silvestre - 06/17/23 Bone Densitometry (Signed) Geeta Weber - 01/30/23 Ribs X-Ray (Signed) Kiviat,Neetu - 01/25/23 Mammogram Screening (Signed) Kiviat,Neetu - 12/13/22 Mammogram Screening (Signed) Kiviat,Neetu - 12/22/21 Chest X-Ray (Signed) Antwon Rogers - 07/30/21 Bone Densitometry 01/27/21 Mammogram Screening (Signed) Jamie Hutchins - 12/07/20 Chest X-Ray (Signed) Omid Lombardi - 03/19/20 Mammogram Screening (Signed) Kibrooksat,Neetu - 12/02/19 Telemetry Strips 11/12/18 Chest X-Ray (Signed) Frederic Jensen - 11/12/18 Telemetry Strips 11/05/18 Mammogram Screening (Signed) Chase Ventura - 10/05/18 Brain MRI (Signed) Frederic Jensen - 03/19/18 Mammogram Screening (Signed) Kibrookskomal,Neetu - 10/04/17 [place] [address] CT Scan Report Signed Patient: Bridget Hemphlil MR#: [id number] : 1935 Acct:[id number] Age/Sex: 87 / F Date of Service: 06/17/23 Loc: ED Accession Number: [id number] Procedure: CT head/brain wo con Ordering Provider: Christen Washington D.O. PROCEDURE: CT HEAD/BRAIN WO CON INDICATIONS: fall, hit head, +LOC, etoh TECHNIQUE: Noncontrast 4.5 mm thick angled axial sections acquired from the foramen magnum to the vertex, with coronal and sagittal reformats. For radiation dose reduction, the following was used: automated exposure control, adjustment of mA and/or kV according to patient size. COMPARISON: [facility], CT, HEAD WITHOUT CONTRAST, 03/27/2010, 14:35. FINDINGS: Image quality: Diagnostic. CSF spaces: Basal cisterns are patent. No extra-axial fluid collections. Ventricles are normal in size and shape. Brain: No midline shift. No intracranial masses or hemorrhage. [place]-white matter interface is normal. Skull and face: Calvarium and visualized facial bones are intact, without suspicious lesions. Bilateral intraocular lens replacements noted. Sinuses: Visualized sinuses and mastoids are clear. IMPRESSION: Moderate atrophy and white matter chronic ischemic change without intracranial hemorrhage or mass. Approved by: Silvestre Cunningham M.D. on 06/17/2023 at 22:10 CT - cervical spine: Radiologist's Impression: [place] [address] CT Scan Report Signed Patient: Bridget Hemphill MR#: [id number] : 1935 Acct:[id number] Age/Sex: 87 / F Date of Service: 06/17/23 Loc: ED Accession Number: [id number] Procedure: CT cervical spine wo con Ordering Provider: Christen Washington D.O. PROCEDURE: CT CERVICAL SPINE WO CON INDICATIONS: Trauma TECHNIQUE: Noncontrast 3 mm thick sections acquired from the skull base to the T4 level. Sagittal and coronal reformats were then constructed. For radiation dose reduction, the following was used: automated exposure control, adjustment of mA and/or kV according to patient size. COMPARISON: None. FINDINGS: Image quality: Excellent. Bones: No fractures or dislocations. Visualized superior ribs are intact. Disc space narrowing and hypertrophic facet joints noted throughout the exam particularly in the mid cervical spine. Soft tissues: Prevertebral soft tissues are normal in thickness. No paravertebral hematomas. No apical pneumothoraces. IMPRESSION: Degenerative disc disease and arthropathy without evidence of acute fracture or traumatic malalignment. Approved by: Silvestre Cunningham M.D. on 06/17/2023 at 22:14 ct facial bones: Radiologist's Impression: [address] [address] [address] Scan Report Signed Patient: Bridget Hemphill MR#: [id number] : 1935 Acct:[id number] Age/Sex: 87 / F Date of Service: 06/17/23 Loc: ED Accession Number: [id number] Procedure: CT facial bones wo con Ordering Provider: Christen Washington D.O. PROCEDURE: CT FACIAL BONES WO CON INDICATIONS: left periorbital ecchymosis TECHNIQUE: Noncontrast 2.5 mm thick axial images acquired from the mandible through the frontal sinuses, with coronal and sagittal reformatting. For radiation dose reduction, the following was used: automated exposure control, adjustment of mA and/or kV according to patient size. COMPARISON: None. FINDINGS: Maxillofacial Bones: The zygomaticomaxillary complex is intact. The pterygoid plates and skull base are unremarkable. No evidence of fracture or lytic lesion. Mandible: The mandible is intact without fracture. Unremarkable temporomandibular articulation. Dentition: Extensive amalgam artifact Soft tissues: Mild left periorbital soft tissue swelling Orbits: The osseous orbits, globes and ocular muscles unremarkable. Bilateral intraocular lens replacements noted. Sinuses and Mastoid: The visualized portion of the paranasal sinuses and mastoids are normal. No air-fluid levels or wall fractures. The nasal vault is unremarkable. IMPRESSION: Left periorbital soft tissue swelling without evidence of ocular injury or orbital fracture. Approved by: Silvestre Cunningham M.D. on 06/17/2023 at 22:18 Chest x-ray: Radiologist's Impression: [place] [address] XRay Report? Signed Patient: Fermín Mackay MR#: [id number] : 10/14/1962 Acct:[id number] Age/Sex: 60 / M Date of Service: 06/17/23 Loc: ED Accession Number: [id number]? ? Procedure: XR thoracic spine 3V Ordering Provider: Christen Washington D.O. PROCEDURE:? XR THORACIC SPINE 3V ? INDICATIONS:? fall, hit back, back pain, no other symptoms ? TECHNIQUE:? 3 views of the thoracic spine were acquired.?? ? COMPARISON:? None. ? FINDINGS:?? ? Bones:? No fractures or dislocations.? No suspicious bony lesions.? 12 pairs of ribs are? noted, and appear intact where visualized.? Degenerative disc space narrowing anterior? osteophytes noted in the lower thoracic spine ? Soft tissues:? No paravertebral stripe thickening.? IMPRESSION:?? ? No acute bony abnormality. ? ? ? Approved by: Silvestre Cunningham M.D. on 06/17/2023 at 20:37 pelvic xray: Radiologist's Impression: Close Face CT (Signed) Cunningham,Silvestre - 06/17/23 Pelvis X-Ray (Signed) Cunningham,Silvestre - 06/17/[address] (Signed) Cunningham,Silvestre - 06/17/23 Chest X-Ray (Signed) Cunningham,Silvestre - 06/17/[address] (Signed) Cunningham,Silvestre - 06/17/23 Bone Densitometry (Signed) Geeta Weber - 01/30/23 Ribs X-Ray (Signed) Kiviat,Neetu - 01/25/23 Mammogram Screening (Signed) Kiviat,Neetu - 12/13/22 Mammogram Screening (Signed) Kiviat,Neetu - 12/22/21 Chest X-Ray (Signed) Antwon Rogers - 07/30/21 Bone Densitometry 01/27/21 Mammogram Screening (Signed) Jamie Hutchins - 12/07/20 Chest X-Ray (Signed) Omid Lombardi - 03/19/20 Mammogram Screening (Signed) Kiviat,Neetu - 12/02/19 Telemetry Strips 11/12/18 Chest X-Ray (Signed) Frederic Jensen - 11/12/18 Telemetry Strips 11/05/18 Mammogram Screening (Signed) Chase Ventura - 10/05/18 Brain MRI (Signed) Frederic Jensen - 03/19/18 Mammogram Screening (Signed) Kiviat,Neetu - 10/04/[address] [address] XRay Report Signed Patient: Bridget Hemphill MR#: [id number] : 1935 Acct:[id number] Age/Sex: 87 / F Date of Service: 06/17/23 Loc: ED Accession Number: [id number] Procedure: XR pelvis 1-2V Ordering Provider: Christen Washington D.O. PROCEDURE: XR PELVIS 1-2V INDICATIONS: fall, hit head, +LOC TECHNIQUE: 1 view(s) of the pelvis acquired. COMPARISON: [facility], , PELVIS 1 OR 2 VIEWS, 05/07/2007, 14:31. FINDINGS: Bones: No fractures or dislocations. No suspicious bony lesions. Bilateral hip joint space narrowing Soft tissues: Visualized bowel gas pattern is normal. No suspicious soft tissue calcifications. IMPRESSION: No acute bony abnormality. Approved by: Silvestre Cunningham M.D. on 06/17/2023 at 22:21 ECG Data Attestation: I personally reviewed and interpreted this ECG as follows: Interpretation: Sinus rhythm, Left axis deviation, left bundle-branch block rate of 63 PA 168 QRS of 144 QTC of 511. No acute ST changes. MDM Narrative Medical decision making narrative: 87-year-old female who appears intoxicated had either a fall or loss of consciousness but did strike her head. Reportedly was witnessed fall per EMS. Patient is not on anticoagulants but it is 87 years has had alcohol does appear intoxicated she states her symptoms seem to be much stronger than she would expect for the amount of alcohol although she describes having large bottle, followed by 2 cans of alcoholic sitter. Patient had head CT no bleed moderate atrophy, chronic white matter ischemic change without intracranial hemorrhage or mass, no fracture. CT C-spine degenerative changes and arthropathy without evidence of fracture or traumatic malalignment. CT facial bone left periorbital soft tissue swelling without ocular injury orbital fracture noted. Chest x-ray no acute change Pelvic x-ray no acute change Labs white count of 7.1 hemoglobin 11.3 consistent with priors over the past 2 years, platelets of 213. INR 0.9, sodium 139 potassium 3.8 chloride of 109 CO2 of 21 BUN 24 creatinine 0.62, glucose of 97 calcium is 10.2, LFTs are negative with a negative troponin and a lipase of 160. ETOH is 150 EKG, left axis deviation, left bundle-branch block. Urine drug screen is negative. Point of care urine is negative for nitrates leuks or signs of infection. No ketones. No protein. Patient did have some nausea was given a dose of Zofran has had some gentle fluids. Based on patient's exam labs and imaging findings no acute fracture, bleed, ETOH is 150 she would 3 alcoholic drinks this evening and I suspect her fall injuries or secondary to this. She does not have any other clear acute neurologic changes on exam. Patient is alert and oriented on recheck. Reviewed her findings. Plan to continue to monitor, ambulation trial. Patient notes her does not drive at nighttime, she states he also had some alcohol this evening. Patient has ambulated in department without issue. Reached out to patients , left voicemail awaiting callback. Discharge Plan Departure Patient Disposition: Home Clinical Impression: Periorbital ecchymosis of left eye, Alcohol intoxication, Fall Activity Restrictions/Additional Instructions: You have some bruising around your left eye but your imaging does not show any bleeding, fractures or injuries today. You do appear to have some chronic anemia. Please return for severe headaches, new neck or back pain, new chest pain or shortness of breath, persistent vomiting, altered mental status, new numbness tingling or weakness or other new or concerning changes. Prescriptions: No Action omeprazole 20 mg capsule,delayed release(DR/EC) 20 mg PO DAILY Qty: 90 3RF rosuvastatin 10 mg tablet 10 mg PO DAILY Qty: 90 3RF citalopram 40 mg tablet 40 mg PO DAILY Qty: 90 3RF Referrals: Juan Neil MD [Primary Care Provider] - Stand Alone Forms: Patient Portal/API
--- NOTE | 2023-06-17 22:16 | DI.CT.S_ITS ---
PROCEDURE: CT FACIAL BONES WO CON INDICATIONS: left periorbital ecchymosis TECHNIQUE: Noncontrast 2.5 mm thick axial images acquired from the mandible through the frontal sinuses, with coronal and sagittal reformatting. For radiation dose reduction, the following was used: automated exposure control, adjustment of mA and/or kV according to patient size. COMPARISON: None. FINDINGS: Maxillofacial Bones: The zygomaticomaxillary complex is intact. The pterygoid plates and skull base are unremarkable. No evidence of fracture or lytic lesion. Mandible: The mandible is intact without fracture. Unremarkable temporomandibular articulation. Dentition: Extensive amalgam artifact Soft tissues: Mild left periorbital soft tissue swelling Orbits: The osseous orbits, globes and ocular muscles unremarkable. Bilateral intraocular lens replacements noted. Sinuses and Mastoid: The visualized portion of the paranasal sinuses and mastoids are normal. No air-fluid levels or wall fractures. The nasal vault is unremarkable. IMPRESSION: Left periorbital soft tissue swelling without evidence of ocular injury or orbital fracture. Approved by: Silvestre Cunningham M.D. on 06/17/2023 at 22:18
[2023-06-17] MEDS: ONDANSETRON 4 MG/2 ML INJ IV (22:23)
[2023-06-17 22:24] LABS: Add Manual Diff / Slide Review NO; Basophils Absolute Auto 100 /uL (0-100); Basophils Percent Auto 0.9 % (0-2); Eosinophils Absolute Auto 200 /uL (0-450); Eosinophils Percent Auto 2.9 % (2-4); Hematocrit 34.7 % (36-46); Hemoglobin 11.3 g/dL (12.0-16.0); Lymphocytes Absolute Auto 2300 /uL (1100-4500); Lymphocytes Percent Auto 31.9 % (25-40); Mean Corpuscular HGB Conc 32.6 % (30-36); Mean Corpuscular Hemoglobin 26.4 PG (26-34); Mean Corpuscular Volume 81.1 fL (80-100); Monocytes Absolute Auto 400 /uL (0-900); Monocytes Percent Auto 5.8 % (3-14); Neutrophils Absolute Auto 4100 /uL (1500-7000); Neutrophils Percent Auto 58.5 % (50-75); Platelet Count 213 X10^3/uL (150-400); Red Blood Cell Count 4.28 X10^6/uL (4.0-5.2); White Blood Cell Count 7.1 X10^3/uL (4.5-11.0)
[2023-06-17] MEDS: SODIUM CHLORIDE 0.9% 1,000 ML 150 ML IV (22:24)
[2023-06-17 22:25] LABS: INR 0.9 (0.9-1.3); Prothrombin Time 10.7 SECONDS (9.4-12.5)
[2023-06-17 22:28] LABS: PTT Partial Thromboplastin Tim 31 SECONDS (25.1-36.5)
[2023-06-17 22:30] LABS: Alanine Aminotransferase 15 IU/L (<35); Albumin 4.3 g/dL (3.5-5.0); Albumin Globulin Ratio 1.4 (1.0-2.8); Alkaline Phosphatase 81 U/L (38-126); Aspartate Aminotransferase 25 IU/L (14-36); BUN Creatinine Ratio 38.7 (6-22); Bilirubin Total 0.4 mg/dL (0.2-1.3); Blood Urea Nitrogen 24 mg/dL (7-17); Calcium 10.2 mg/dL (8.4-10.2); Carbon Dioxide 21 mmol/L (22-32); Chloride 109 mmol/L (98-107); Creatine Kinase 63 U/L (30-135); Estimated Glomerular Filt Rate > 60 mL/min (>60); Ethanol (ETOH) 150 mg/dL; Glucose 97 mg/dL (80-110); HEMOLYSIS < 15 (0-50); Lipase 160 U/L (23-300); Potassium 3.8 mmol/L (3.4-5.1); Sodium 139 mmol/L (137-145); Total Protein 7.3 g/dL (6.3-8.2)
[2023-06-17 22:41] LABS: Troponin I < 0.012 ng/mL (0.01-0.034)
[2023-06-17 22:45] LABS: UR Morphine/Opiate cutoff 300 Negative (Negative); Urine Amphetamines Negative (Negative); Urine Barbiturates Negative (Negative); Urine Benzodiazepines Negative (Negative); Urine Cocaine Negative (Negative); Urine MDMA Negative (Negative); Urine Methadone Negative (Negative); Urine Methamphetamines Negative (Negative); Urine Oxycodone Negative (Negative); Urine Phencyclidine Negative (Negative); Urine Tetrahydrocannabinol Negative (Negative); Urine Tricyclic Antidepressant Negative (Negative)
[2023-06-18] VITALS: PULSE 65; RESP 16; O2SAT 98
--- NOTE | 2023-06-18 06:31 | PC.NURSE ---
[employer] OFFICE SUPERVISOR note: Attempted to contact patient's 4 times between 0600 to 0632. Phone would ring once then go silent, and hang up. The phone would also go to voicemail. He picked up at 0633 and we arranged transport.
[2023-06-18 07:07] VITALS: BP 142/71; PULSE 54; RESP 18; TEMP 36.7; O2SAT 97
== END 2023-06-18 07:25 | disposition home or self-care (01) ==
PROVIDERS: Emergency Provider Emergency Medicine; PCP Internal Medicine
DX: S00.12XA Contusion of left eyelid and periocular area, initial encounter (principal); F10.129 Alcohol abuse with intoxication, unspecified; Y90.6 Blood alcohol level of 120-199 mg/100 ml; W18.30XA Fall on same level, unspecified, initial encounter
CPT/HCPCS: 36415; 70450; 70486; 71045; 72125; 72170; 80053; 80305; 80320; 81003; 82550; 83690; 84484; 85025; 85610; 85730; 93005; 96361; 96374; 99284; J2405

== ENCOUNTER → 2023-12-15 15:48 | Outpatient (CLI) | payer MEDICARE, OTHER, SELFPAY ==
[2018-11-16 10:31] VITALS: BMI 29.5
--- NOTE | 2023-12-15 15:50 | DI.MG.S_ITS ---
BILATERAL DIGITAL SCREENING MAMMOGRAM 3D/2D WITH CAD: 12/15/2023 CLINICAL: Routine screening. Family history of breast cancer. Comparison is made to exams dated: 12/13/2022 mammogram, 12/22/2021 mammogram, and 12/07/2020 mammogram - [facility]. There are scattered areas of fibroglandular density (category b / 25%-50% glandular tissue). Current study was also evaluated with a Computer Aided Detection (CAD) system. There are benign post operative findings in both breasts. No significant masses, calcifications, or other findings are seen in either breast. There has been no significant interval change. IMPRESSION: BENIGN There is no mammographic evidence of malignancy. A 1 year screening mammogram is recommended. This exam was interpreted at Station ID: [id number]. NOTE: For mammograms, a report in lay terms will be sent to the patient. Approximately 15% of breast malignancies will not be visualized mammographically. In the management of a palpable breast mass, a negative mammogram must not discourage biopsy of a clinically suspicious lesion. Electronically Signed By: Geeta Weber M.D., Ph.D. maurice/kristal:12/15/2023 23:07:46 letter sent: Normal Exam ACR BI-RADS Category 2: Benign
== END ==
PROVIDERS: PCP Internal Medicine; Referring Provider Internal Medicine; Visit Provider Internal Medicine
DX: Z12.31 Encounter for screening mammogram for malignant neoplasm of breast (principal); Z80.3 Family history of malignant neoplasm of breast
CPT/HCPCS: 77063; 77067

== ENCOUNTER → 2024-03-03 16:35 | Outpatient (CLI) | payer MEDICARE, OTHER, SELFPAY ==
[2018-11-16 10:31] VITALS: BMI 29.5
--- NOTE | 2024-03-03 16:39 | DI.RAD.S_ITS ---
PROCEDURE: XR ANKLE RT MIN 3V INDICATIONS: Right ankle pain TECHNIQUE: 3 views of the ankle were acquired. COMPARISON: None. FINDINGS: Bones: No fractures or dislocations. Ankle mortise is normally aligned. No suspicious bony lesions. Plantar calcaneal spur. Soft tissues: No tibiotalar joint effusion. Achilles tendon appears normal. Medial and lateral soft tissue swelling. IMPRESSION: Medial and lateral soft tissue swelling Dictated by: Omid Lombardi M.D. on 03/03/2024 at 18:27 Approved by: Omid Lombardi M.D. on 03/03/2024 at 18:28
== END ==
PROVIDERS: PCP Internal Medicine; Referring Provider Nurse Practitioner Family; Visit Provider Nurse Practitioner Family
DX: M25.571 Pain in right ankle and joints of right foot (principal); M79.89 Other specified soft tissue disorders; M77.31 Calcaneal spur, right foot
CPT/HCPCS: 73610

== ENCOUNTER → 2024-03-05 12:50 | Outpatient (CLI) | payer MEDICARE, OTHER, SELFPAY ==
[2018-11-16 10:31] VITALS: BMI 29.5
--- NOTE | 2024-03-05 12:57 | DI.US.S_ITS ---
PROCEDURE: US PERIPH VENOUS LOW EXTREM RT INDICATIONS: EDEMA TECHNIQUE: Real-time imaging, as well as color and pulse Doppler interrogation, were performed of the lower extremity deep veins from the inguinal ligament to the popliteal fossa, with documentation of the visualized calf veins. COMPARISON: None. FINDINGS: The common femoral, femoral, popliteal, and the visualized calf veins are normally compressible, and free of intraluminal thrombus. Color and pulse Doppler demonstrate normal phasic intraluminal flow. There is normal augmentation response to distal compression maneuver. IMPRESSION: No findings of lower extremity deep venous thrombosis. Dictated by: Hao Odell M.D. on 03/05/2024 at 13:57 Approved by: Hao Odell M.D. on 03/05/2024 at 13:58
== END ==
PROVIDERS: PCP Internal Medicine; Referring Provider Nurse Practitioner Family; Visit Provider Nurse Practitioner Family
DX: M25.471 Effusion, right ankle (principal)
CPT/HCPCS: 93971

== ENCOUNTER 2024-05-03 15:55 | Emergency (ER) | payer MEDICARE, OTHER, SELFPAY ==
[2018-11-16 10:31] VITALS: BMI 29.5
--- NOTE | 2024-05-03 16:02 | EKG_ITS ---
[facility] [address] [place] [address] Test Date: 2024-05-03 Pat Name: Bridget Hemphill Department: [facility] Room: Gender: Female Cross Tie Maker: SHIRLENE : 1935 Requested By: Order Number: [id number] Reading MD: Giovani Quinones Measurements Intervals Edwards Rate: 80 P: 67 WY: 190 QRS: -34 QRSD: 146 T: 31 QT: 444 QTc: 512 Interpretive Statements Sinus rhythm with premature supraventricular complexes Left axis deviation Left bundle branch block Electronically Signed On 05-06-2024 8:32:07 PDT by Giovani Quinones
--- NOTE | 2024-05-03 16:02 | DI.RAD.S_ITS ---
PROCEDURE: XR CHEST 1V INDICATIONS: chest pain TECHNIQUE: One view of the chest was acquired. COMPARISON: None. FINDINGS: Surgical changes and devices: None. Lungs and pleura: Lungs are clear. No pleural effusions or pneumothorax. Mediastinum: Mediastinal contours appear normal. Heart size is normal. Bones and chest wall: No suspicious bony lesions. Overlying soft tissues appear unremarkable. IMPRESSION: No acute cardiopulmonary abnormality is seen. Dictated by: Omid Lombardi M.D. on 05/03/2024 at 16:54 Approved by: Omid Lombardi M.D. on 05/03/2024 at 16:55
[2024-05-03 16:10] VITALS: BP 170/80; PULSE 82; RESP 18; TEMP 36.6; O2SAT 98; BMI 29.1
[2024-05-03 16:11] VITALS: PULSE 77; O2SAT 97
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
[2024-05-03 16:23] LABS: Add Manual Diff / Slide Review NO; Basophils Absolute Auto 0 /uL (0-100); Basophils Percent Auto 0.4 % (0-2); Eosinophils Absolute Auto 200 /uL (0-450); Eosinophils Percent Auto 2.6 % (2-4); Hematocrit 34.6 % (36-46); Hemoglobin 11.6 g/dL (12.0-16.0); Lymphocytes Absolute Auto 1800 /uL (1100-4500); Mean Corpuscular HGB Conc 33.3 % (30-36); Mean Corpuscular Hemoglobin 28.2 PG (26-34); Mean Corpuscular Volume 84.4 fL (80-100); Monocytes Absolute Auto 500 /uL (0-900); Monocytes Percent Auto 6.9 % (3-14); Neutrophils Absolute Auto 5300 /uL (1500-7000); Neutrophils Percent Auto 67.1 % (50-75); Platelet Count 202 X10^3/uL (150-400); Red Cell Distribution Width 14.6 % (11.6-14.8); White Blood Cell Count 7.9 X10^3/uL (4.5-11.0)
[2024-05-03] MEDS: ASPIRIN 81 MG CHEW TAB 324 MG PO (16:27)
[2024-05-03 16:31] LABS: INR 0.9 (0.9-1.3); Prothrombin Time 10.4 SECONDS (9.4-12.5)
[2024-05-03 16:33] LABS: PTT Partial Thromboplastin Tim 34 SECONDS (25.1-36.5)
[2024-05-03 16:34] LABS: Ethanol (ETOH) < 10 mg/dL
[2024-05-03 16:35] LABS: Alanine Aminotransferase 18 IU/L (<35); Albumin Globulin Ratio 1.3 (1.0-2.8); Alkaline Phosphatase 86 U/L (38-126); Aspartate Aminotransferase 26 IU/L (14-36); BUN Creatinine Ratio 24.4 (6-22); Bilirubin Total 0.2 mg/dL (0.2-1.3); Blood Urea Nitrogen 21 mg/dL (7-17); Calcium 9.8 mg/dL (8.4-10.2); Carbon Dioxide 27 mmol/L (22-32); Chloride 104 mmol/L (98-107); Creatine Kinase 48 U/L (30-135); Estimated Glomerular Filt Rate > 60 mL/min (>60); Glucose 105 mg/dL (80-110); HEMOLYSIS < 15 (0-50); Lipase 119 U/L (23-300); Potassium 3.8 mmol/L (3.4-5.1); Sodium 137 mmol/L (137-145)
[2024-05-03 16:46] LABS: NT-proBNP (BNP-Adult 18+) 452 pg/mL (<450); Troponin I < 0.012 ng/mL (0.01-0.034)
[2024-05-03 17:00] VITALS: PULSE 63; RESP 18; O2SAT 98
[2024-05-03 17:30] VITALS: PULSE 71; RESP 20; O2SAT 99
== END 2024-05-03 17:51 | disposition home or self-care (01) ==
PROVIDERS: Emergency Provider Emergency Medicine; PCP Internal Medicine
DX: R42 Dizziness and giddiness (principal); R03.0 Elevated blood-pressure reading, without diagnosis of hypertension
CPT/HCPCS: 71045; 80053; 80320; 82550; 83690; 83735; 83880; 84484; 85025; 85610; 85730; 93005; 99283; 99284

== ENCOUNTER → 2024-08-08 15:41 | Outpatient (CLI) | payer MEDICARE, OTHER, SELFPAY ==
[2024-05-07 16:17] VITALS: BMI 29.5
[2024-08-08 16:28] LABS: Aspartate Aminotransferase 21 IU/L (14-36); BUN Creatinine Ratio 28.4 (6-22); Blood Urea Nitrogen 25 mg/dL (7-17); Carbon Dioxide 27 mmol/L (22-32); Chloride 105 mmol/L (98-107); Cholesterol 164 mg/dL (140-199); Estimated Glomerular Filt Rate > 60 mL/min (>60); Glucose 95 mg/dL (70-99); HDL Cholesterol 60 mg/dL (40-60); HEMOLYSIS < 15 (0-50); LDL Cholesterol Calculated 81 mg/dL (<100); Potassium 4.8 mmol/L (3.4-5.1); Sodium 138 mmol/L (137-145); Triglycerides 115 mg/dL (35-150)
== END ==
LOC: LAB 15:43
PROVIDERS: PCP Internal Medicine; Referring Provider Internal Medicine; Visit Provider Internal Medicine
DX: E78.2 Mixed hyperlipidemia (principal)
CPT/HCPCS: 36415; 80048; 80061; 84450

== ENCOUNTER → 2024-10-01 15:56 | Outpatient (CLI) | payer MEDICARE, OTHER, SELFPAY ==
[2024-05-07 16:17] VITALS: BMI 29.5
[2024-10-01 16:12] LABS: Hematocrit 34.9 % (36-46); Hemoglobin 11.7 g/dL (12.0-16.0); Mean Corpuscular HGB Conc 33.5 % (30-36); Mean Corpuscular Hemoglobin 28.3 PG (26-34); Mean Corpuscular Volume 84.3 fL (80-100); Platelet Count 202 X10^3/uL (150-400)
[2024-10-01 16:26] LABS: HEMOLYSIS < 15 (0-50); Iron 43 ug/dL (37-170)
[2024-10-01 16:36] LABS: Percent Iron Saturation 11 % (15-50); Total Iron Binding Capacity 380 ug/dL (265-497); Transferrin 323 mg/dL (206-381)
[2024-10-01 17:03] LABS: Ferritin 9 ng/mL (11-264)
== END ==
PROVIDERS: PCP Internal Medicine; Referring Provider Internal Medicine; Visit Provider Internal Medicine
DX: K62.5 Hemorrhage of anus and rectum (principal)
CPT/HCPCS: 36415; 82728; 83540; 83550; 85027

== ENCOUNTER → 2024-12-18 07:49 | Outpatient (CLI) | payer MEDICARE, OTHER, SELFPAY ==
[2024-05-07 16:17] VITALS: BMI 29.5
--- NOTE | 2024-12-18 07:51 | DI.MG.S_ITS ---
MM screening mammo BI: 12/18/2024. BI-RADS: 1 CLINICAL: 89-year old female for bilateral screening mammogram. No Tyrer-Cuzick risk score calculation due to patient's age being over 85 years old. Current reported family history of breast cancer: daughter. PRIOR EXAMS 12/15/2023, 12/13/2022, 12/22/2021, 12/07/2020. MAMMOGRAPHY TECHNIQUE: 2D and 3D (tomosynthesis) digital mammographic views obtained, with additional images as needed for full coverage. Current study was also evaluated with a Computer Aided Detection (CAD) system. DENSITY C. The breasts are heterogeneously dense, which may obscure small masses. MAMMOGRAPHY FINDINGS Bilateral: No suspicious mass, asymmetry, microcalcification, or other abnormality seen. IMPRESSION: * No evidence of malignancy. RECOMMENDATIONS Bilateral * Annual screening mammography. OVERALL ASSESSMENT CATEGORY BI-RADS-1: Negative. The [employer] recommends annual screening mammography beginning at age 40 for women with average risk of breast cancer. ELECTRONICALLY SIGNED: Niurka Bustillo M.D. on 12/18/2024 at 09:23:27 AM PT Interpreting Station ID: [id number]
== END ==
LOC: MAMMO 07:50
PROVIDERS: PCP Internal Medicine; Referring Provider Internal Medicine; Visit Provider Internal Medicine
DX: Z12.31 Encounter for screening mammogram for malignant neoplasm of breast (principal); R92.333 Mammographic heterogeneous density, bilateral breasts; Z80.3 Family history of malignant neoplasm of breast
CPT/HCPCS: 77063; 77067